=== PATIENT | female | born 1930 | race Caucasian/White ===

== ENCOUNTER 2019-09-22 15:37 | Inpatient (IN) | payer MEDICARE, BC ==
[~2019-09-22] VITALS: Ht 165.1 cm; Wt 67.2 kg
[~2019-09-22 15:37] MED LIST: DOCUSATE SODIU100 MG ORAL; OMEPRAZOLE40 M1 ORAL; PRISTIQ ER50 MG PO; SIMVASTATIN40 MG ORAL; SYNTHROID88 MCG ORAL; WARFARIN SODIUM5 MG ORAL
[2019-09-22 15:38] VITALS: BP 146/76
--- NOTE | 2019-09-22 15:38 | NUR ---
ED Nurse Note: Pt was BIBA dfrom home with the c/o ALOC. Per pt's son, pt seems to be gradually declining from her ADL. Pt has hx of DM, DVT, Anemia and thyroid complications. Placed on bed and gown; hooked to compliance monitor. Bilateral side rails up. VSS, on RA. Will continue to monitor.
--- NOTE | 2019-09-22 16:06 | Emergency Room Report ---
History of Present Illness General Chief Complaint: Altered Mental Status Present Illness HPI Patient is an 89-year-old female presents after increased altered mental status. Patient been noted to be more lethargic than usual. She had recently been on antibiotics for urinary tract infection. She reportedly had intermittent episodes of constipation in the past. She had previously been hospitalized at [facility] approximately 3 weeks ago. She had prior history of hypothyroidism and is currently on Synthroid. Patient also has on Pristiq as well as Coumadin 5 mg due to prior history of DVTs. She has an IVC filter.Patient reportedly had not been having any vomiting or diarrhea. No known fever. Allergies: Coded Allergies: CLINDAMYCIN (Verified Allergy, Unknown, 10/15/11) PENICILLINS (Verified Allergy, Unknown, 10/15/11) SULFA (SULFONAMIDE ANTIBIOTICS) (Verified Allergy, Unknown, 10/15/11) Patient History Past Medical History: see triage record Past Surgical History: other - VC filter Reviewed Nursing Documentation: PMH: Agreed; PSxH: Agreed Review of Systems All Other Systems: limited - by poor historian Physical Exam Vital Signs Date Time Temp Pulse Resp B/P (MAP) Pulse Ox O2 Delivery O2 Flow Rate FiO2 09/22/19 15:29 99.7 98 18 148/76 (100) 98 Room Air General Appearance: alert, Chronically Ill Eyes: bilateral eye PERRL ENT: hearing grossly normal Neck: limited range of motion Respiratory: chest non-tender, lungs clear, normal breath sounds Cardiovascular #1: normal inspection, no edema Gastrointestinal: normal inspection, soft Neurologic: alert, motor strength/tone normal, insurance examiner III-XII nml as tested, motor weakness Skin: no rash Medical Decision Making Diagnostic Impression: Primary Impression: Altered mental status Additional Impressions: Severe sepsis Dementia Warfarin anticoagulation ER Course Patient present for increased generalized weakness and altered mental status. Differential diagnosis include was not limited to hypothyroidism, dehydration, C. difficile colitis, urinary tract infection among others. Because of complexity of patient's case laboratory tests and imaging studies were ordered.Chest x-ray 1 view read by radiology showed large retrocardiac hiatal hernia without evident infiltrate effusions or congestion. Patient given IV fluids as well as IV antibiotics.Patient was given IV Levaquin as well as vancomycin. Patient's urinalysis did show some evidence of urinary infection.Head CT read by radiology showed atrophic changes and chronic ischemic white matter changes. Patient was given IV fluids. Dr. Kj Chang was contacted for inpatient management due to primary care physician Labs Test 09/22/19 15:55 White Blood Count 14.6 K/UL (4.8-10.8) Red Blood Count 3.15 M/UL (4.20-5.40) Hemoglobin 10.7 G/DL (12.0-16.0) Hematocrit 30.6 % (37.0-47.0) Mean Corpuscular Volume 97 FL (80-99) Mean Corpuscular Hemoglobin 34.0 PG (27.0-31.0) Mean Corpuscular Hemoglobin Concent 35.0 G/DL (32.0-36.0) Red Cell Distribution Width 11.4 % (11.6-14.8) Platelet Count 330 K/UL (150-450) Mean Platelet Volume 5.5 FL (6.5-10.1) Neutrophils (%) (Auto) 82.4 % (45.0-75.0) Lymphocytes (%) (Auto) 10.3 % (20.0-45.0) Monocytes (%) (Auto) 6.7 % (1.0-10.0) Eosinophils (%) (Auto) 0.0 % (0.0-3.0) Basophils (%) (Auto) 0.6 % (0.0-2.0) Prothrombin Time 22.7 SEC (9.30-11.50) Prothromb Time International Ratio 2.2 (0.9-1.1) Sodium Level 137 MMOL/L (136-145) Potassium Level 4.7 MMOL/L (3.5-5.1) Chloride Level 100 MMOL/L (98-107) Carbon Dioxide Level 27 MMOL/L (21-32) Anion Gap 11 mmol/L (5-15) Blood Urea Nitrogen 31 mg/dL (7-18) Creatinine 1.1 MG/DL (0.55-1.30) Estimat Glomerular Filtration Rate mL/min (>60) Glucose Level 175 MG/DL (74-106) Lactic Acid Level 2.40 mmol/L (0.4-2.0) Calcium Level 8.1 MG/DL (8.5-10.1) Phosphorus Level 2.6 MG/DL (2.5-4.9) Magnesium Level 2.0 MG/DL (1.8-2.4) Total Bilirubin 0.3 MG/DL (0.2-1.0) Aspartate Amino Transf (AST/SGOT) 48 U/L (15-37) Alanine Aminotransferase (ALT/SGPT) 40 U/L (12-78) Alkaline Phosphatase 85 U/L (46-116) Total Creatine Kinase 40 U/L (26-308) Creatine Kinase MB 0.6 NG/ML (0.0-3.6) Creatine Kinase MB Relative Index 1.5 Troponin I 0.000 ng/mL (0.000-0.056) Total Protein 6.6 G/DL (6.4-8.2) Albumin 2.1 G/DL (3.4-5.0) Globulin 4.5 g/dL Albumin/Globulin Ratio 0.5 (1.0-2.7) Thyroid Stimulating Hormone (TSH) 10.514 uiU/mL (0.358-3.740) Free Thyroxine 1.29 NG/DL (0.76-1.46) Lab Results Impression Labs Test 09/22/19 15:55 09/22/19 17:05 09/22/19 17:30 White Blood Count 14.6 K/UL (4.8-10.8) Red Blood Count 3.15 M/UL (4.20-5.40) Hemoglobin 10.7 G/DL (12.0-16.0) Hematocrit 30.6 % (37.0-47.0) Mean Corpuscular Volume 97 FL (80-99) Mean Corpuscular Hemoglobin 34.0 PG (27.0-31.0) Mean Corpuscular Hemoglobin Concent 35.0 G/DL (32.0-36.0) Red Cell Distribution Width 11.4 % (11.6-14.8) Platelet Count 330 K/UL (150-450) Mean Platelet Volume 5.5 FL (6.5-10.1) Neutrophils (%) (Auto) 82.4 % (45.0-75.0) Lymphocytes (%) (Auto) 10.3 % (20.0-45.0) Monocytes (%) (Auto) 6.7 % (1.0-10.0) Eosinophils (%) (Auto) 0.0 % (0.0-3.0) Basophils (%) (Auto) 0.6 % (0.0-2.0) Prothrombin Time 22.7 SEC (9.30-11.50) Prothromb Time International Ratio 2.2 (0.9-1.1) Sodium Level 137 MMOL/L (136-145) Potassium Level 4.7 MMOL/L (3.5-5.1) Chloride Level 100 MMOL/L (98-107) Carbon Dioxide Level 27 MMOL/L (21-32) Anion Gap 11 mmol/L (5-15) Blood Urea Nitrogen 31 mg/dL (7-18) Creatinine 1.1 MG/DL (0.55-1.30) Estimat Glomerular Filtration Rate mL/min (>60) Glucose Level 175 MG/DL (74-106) Calcium Level 8.1 MG/DL (8.5-10.1) Phosphorus Level 2.6 MG/DL (2.5-4.9) Magnesium Level 2.0 MG/DL (1.8-2.4) Total Bilirubin 0.3 MG/DL (0.2-1.0) Aspartate Amino Transf (AST/SGOT) 48 U/L (15-37) Alanine Aminotransferase (ALT/SGPT) 40 U/L (12-78) Alkaline Phosphatase 85 U/L (46-116) Total Creatine Kinase 40 U/L (26-308) Creatine Kinase MB 0.6 NG/ML (0.0-3.6) Creatine Kinase MB Relative Index 1.5 Troponin I 0.000 ng/mL (0.000-0.056) Total Protein 6.6 G/DL (6.4-8.2) Albumin 2.1 G/DL (3.4-5.0) Globulin 4.5 g/dL Albumin/Globulin Ratio 0.5 (1.0-2.7) Thyroid Stimulating Hormone (TSH) 10.514 uiU/mL (0.358-3.740) Free Thyroxine 1.29 NG/DL (0.76-1.46) Urine Color Yellow Urine Appearance Slightly cloudy Urine pH 5 (4.5-8.0) Urine Specific [place] 1.005 (1.005-1.035) Urine Protein 2+ (NEGATIVE) Urine Glucose (UA) Negative (NEGATIVE) Urine Ketones Negative (NEGATIVE) Urine Blood 2+ (NEGATIVE) Urine Nitrite Positive (NEGATIVE) Urine Bilirubin Negative (NEGATIVE) Urine Urobilinogen 1 MG/DL (0.0-1.0) Urine Leukocyte Esterase 2+ (NEGATIVE) Urine RBC 5-10 /HPF (0 - 2) Urine WBC 60-80 /HPF (0 - 2) Urine Squamous Epithelial Cells Moderate /LPF (NONE/OCC) Urine Bacteria Many /HPF (NONE) Lactic Acid Level 2.30 mmol/L (0.66-2.22) EKG Diagnostic Results Rate: tachycardiac Rhythm: NSR ST Segments: no acute changes Last Vital Signs Date Time Temp Pulse Resp B/P (MAP) Pulse Ox O2 Delivery O2 Flow Rate FiO2 09/22/19 15:29 99.7 98 18 148/76 (100) 98 Room Air Status: unchanged Reevaluation Impression SEPSIS RE-EVALUATION: Pollo Peters MD, Performed the Sepsis Re-evaluation at 22:33. Patient was noted to have improvement in lactate as well as improved heart rate. Continues to perfuse well. Disposition: ADMITTED INPATIENT Condition: Stable Pollo Sanchez MD Sep 22, 2019 16:06
--- NOTE | 2019-09-22 16:36 | Diagnostic Imaging Report ---
Indication: Shortness of breath Technique: One view of the chest Comparison: 02/02/2011 Findings: There is a large retrocardiac hiatal hernia. No definite acute infiltrates, effusions, or congestion. Aorta is tortuous and calcified. There is an old healed fracture deformity of the left shoulder Impression: No definite acute process. Findings as noted
--- NOTE | 2019-09-22 16:38 | Diagnostic Imaging Report ---
Indications: Altered mental status Technique: Spiral acquisitions obtained through the brain. Angled axial and coronal 5 x 5 mm slices were reconstructed. Total dose length product 1407 mGycm. CTDI vol(s) 62 mGy. Dose reduction achieved using automated exposure control Comparison: None. Findings: There is age-related enlargement of the ventricles and extra axial CSF spaces. Visualized orbits and sinuses are unremarkable. The calvarium is intact. The mastoids are clear. Impression: Chronic and age-related changes. Negative for acute intracranial bleed or mass effect The CT scanner at [facility] is accredited by the [employer] and the scans are performed using protocols designed to limit radiation exposure to as low as reasonably achievable to attain images of sufficient resolution adequate for diagnostic evaluation.
[2019-09-22 16:41] LABS: BASOPHILS % (AUTO) 0.6 % (0.0-2.0); HEMATOCRIT 30.6 % (37.0-47.0); HEMOGLOBIN 10.7 G/DL (12.0-16.0); LYMPHOCYTES % (AUTO) 10.3 % (20.0-45.0); MEAN CORPUSCULAR VOLUME 97 FL (80-99); MONOCYTES % (AUTO) 6.7 % (1.0-10.0); NEUTROPHILS % (AUTO) 82.4 % (45.0-75.0); PLATELET COUNT 330 K/UL (150-450); RED BLOOD COUNT 3.15 M/UL (4.20-5.40); RED CELL DISTRIBUTION WIDTH 11.4 % (11.6-14.8); WHITE BLOOD COUNT 14.6 K/UL (4.8-10.8)
[2019-09-22 16:54] LABS: INR 2.2 (0.9-1.1)
[2019-09-22 17:00] LABS: ANION GAP 11 mmol/L (5-15); BLOOD UREA NITROGEN 31 mg/dL (7-18); CALCIUM 8.1 MG/DL (8.5-10.1); CARBON DIOXIDE 27 MMOL/L (21-32); CHLORIDE 100 MMOL/L (98-107); CREATININE 1.1 MG/DL (0.55-1.30); POTASSIUM 4.7 MMOL/L (3.5-5.1); SODIUM 137 MMOL/L (136-145)
[2019-09-22 17:09] LABS: ALANINE AMINOTRANSFERASE 40 U/L (12-78); ALBUMIN 2.1 G/DL (3.4-5.0); ALBUMIN/GLOBULIN RATIO 0.5 (1.0-2.7); ALKALINE PHOSPHATASE 85 U/L (46-116); ASPARTATE AMINO TRANSFERASE 48 U/L (15-37); BILIRUBIN,TOTAL 0.3 MG/DL (0.2-1.0); CKMB 0.6 NG/ML (0.0-3.6); CREATINE KINASE 40 U/L (26-308); PHOSPHORUS 2.6 MG/DL (2.5-4.9)
[2019-09-22] MEDS ORDERED: Vancomycin 1.5 GM in NS 275 ML IVPB ONE (17:15)
[2019-09-22 17:27] LABS: APPEARANCE,URINE SLIGHTLY CLOUDY; BILIRUBIN, URINE NEGATIVE (NEGATIVE); GLUCOSE, URINE (UA) NEGATIVE (NEGATIVE); KETONES,URINE NEGATIVE (NEGATIVE); LEUKOCYTE ESTERASE ,URINE 2+ (NEGATIVE); NITRITE,URINE POSITIVE (NEGATIVE); PH,URINE 5 (4.5-8.0); PROTEIN,URINE 2+ (NEGATIVE); UROBILINOGEN,URINE 1 MG/DL (0.0-1.0)
[2019-09-22 17:28] LABS: COLOR,URINE YELLOW
[2019-09-22 18:43] VITALS: BP 141/77
--- NOTE | 2019-09-22 19:09 | NUR ---
HAND-OFF: Report given to ELIA Ortega .
[2019-09-22 19:10] VITALS: BP 123/93
--- NOTE | 2019-09-22 19:10 | NUR ---
ED Nurse Note: Received report from Lorna RODRIGEZ. Pt alert and oriented. Not in any distress. Will cont to monitor.
[2019-09-22] MEDS ORDERED: Miralax 17gm pkt ORAL PRN (20:45)
[2019-09-22] MEDS ORDERED: Cefepime 1gm vial IM SCH (21:00)
--- NOTE | 2019-09-22 21:20 | NUR ---
ED Nurse Note: US at bedside.
--- NOTE | 2019-09-22 22:22 | NUR ---
ED Nurse Note: Report given to Raúl RODRIGEZ from SDU.
[2019-09-22 22:25] VITALS: BP 132/80
--- NOTE | 2019-09-22 22:25 | NUR ---
TRANSFER TO FLOOR: Patient transferred to SDU unit. Report given to Raúl RODRIGEZ. Pt alert and orientedx 3, verbally responsive. Not in any distress. No SOB. sinus rhythm. IV line on right wrist 20g patent and intact. Med recon done. All belongings given to the patient.
--- NOTE | 2019-09-22 22:45 | NUR ---
NURSE NOTES: Received patient from ELIA Ortega. Patient is aaox2, vss, with no acute distress. Patient is cooperative and well groomed. Patient is on cardiac exercise specialist, IV site on right wrist 20g, and with blanchable redness on her sacral. Patient skin is red and irritated from cardiac exercise specialist leads. Patient is NPO with D5 ns ordered. Patient has a purewick, dry and clean. Patient lungs are clear on all lobes. Bed at its lowest position, call light in reach and x3 bed rails are up. Will continue to monitor.
[2019-09-22] MEDS: D5NS 1,000 ML IV SCH (23:40)
[2019-09-23 00:02] VITALS: BP 130/77
[2019-09-23 04:00] VITALS: BP 135/72
[2019-09-23 05:00] LABS: BASOPHILS % (AUTO) 0.5 % (0.0-2.0); HEMATOCRIT 28.3 % (37.0-47.0); HEMOGLOBIN 9.9 G/DL (12.0-16.0); LYMPHOCYTES % (AUTO) 9.5 % (20.0-45.0); MEAN CORPUSCULAR VOLUME 96 FL (80-99); MONOCYTES % (AUTO) 8.6 % (1.0-10.0); NEUTROPHILS % (AUTO) 81.3 % (45.0-75.0); PLATELET COUNT 280 K/UL (150-450); RED BLOOD COUNT 2.95 M/UL (4.20-5.40); RED CELL DISTRIBUTION WIDTH 11.2 % (11.6-14.8); WHITE BLOOD COUNT 10.7 K/UL (4.8-10.8)
[2019-09-23 05:17] LABS: ANION GAP 8 mmol/L (5-15); BLOOD UREA NITROGEN 24 mg/dL (7-18); CALCIUM 7.6 MG/DL (8.5-10.1); CARBON DIOXIDE 24 MMOL/L (21-32); CHLORIDE 104 MMOL/L (98-107); INR 1.8 (0.9-1.1); POTASSIUM 3.9 MMOL/L (3.5-5.1); SODIUM 136 MMOL/L (136-145)
[2019-09-23 05:24] LABS: ALANINE AMINOTRANSFERASE 30 U/L (12-78); ALBUMIN 1.6 G/DL (3.4-5.0); ALBUMIN/GLOBULIN RATIO 0.4 (1.0-2.7); ALKALINE PHOSPHATASE 68 U/L (46-116); ASPARTATE AMINO TRANSFERASE 32 U/L (15-37); BILIRUBIN,TOTAL 0.4 MG/DL (0.2-1.0)
--- NOTE | 2019-09-23 07:05 | NUR ---
NURSE NOTES: Report received from Raúl Agudelo RN.Pt resting quietly in bed awake alert noted no resp distress denies any c/o pain or discomfort, S-R on the monitor kept NPO with purewick in placed,skin warm and dry with IVF D5NS at 60ml/hr to RW site intact,SR up x2 call light within reach at bedside,bed lock in lowest position ,will continue with plans of care.
[2019-09-23 08:00] VITALS: BP 136/75
[2019-09-23] MEDS ORDERED: Cefepime 1gm vial IVPB SCH (09:00)
[2019-09-23] MEDS: Docusate 100mg cap ORAL SCH ×3 (09:00→18:57)
[2019-09-23] MEDS ORDERED: Docusate 100mg cap ORAL SCH (09:00)
--- NOTE | 2019-09-23 09:06 | History & Physical ---
History and Physical History & Physicial [id number] Kj Chang MD Sep 23, 2019 09:06
--- NOTE | 2019-09-23 10:30 | NUR ---
NURSE NOTES: Dr Chang at bedside,ordered to feed pt with regular diet.
[2019-09-23 12:00] VITALS: BP 135/72
--- NOTE | 2019-09-23 12:00 | NUR ---
NURSE NOTES: Family member at bedside,requested pt be on regular Kosher diet.Pt did not eat lunch,drinks only water and juices.
[2019-09-23] MEDS: D5NS 1,000 ML IV SCH (14:10)
--- NOTE | 2019-09-23 14:45 | NUR ---
NURSE NOTES: Dr Chang called the unit informing that he's aware of pt's BC results and pt is already on antibiotic.
--- NOTE | 2019-09-23 15:30 | History and Physical Report ---
DATE OF ADMISSION: 09/22/2019 REASON OF ADMISSION: Altered mental status. HISTORY OF PRESENT ILLNESS: This is a very pleasant 89-year-old white female who is acquainted to me from previous admissions, has a history of hypercoagulable state for which she is on Coumadin, was brought to the emergency room of [facility] after 2 to 3 days being somewhat lethargic and altered, was found to have a pyuria with white count of about 14,000, was given some Levaquin in the emergency room, and was decided to be admitted for further evaluation. 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 PAST SURGICAL HISTORY: Status post total knee replacement, status post cataract surgery, status post carpal tunnel repair, status post , status post IVC filter placement. MEDICATIONS: Includes Pristiq 50 mg p.o. at bedtime, Colace 250 mg p.o. daily, Trusopt ophthalmic drops in both eyes b.i.d., fish oil 1 capsule p.o. daily, Xalatan eyedrops 0.005% 1 drop in both eyes daily, Synthroid 0.88 mg p.o. daily, metformin 500 mg p.o. b.i.d., Remeron 15 mg p.o. at bedtime, Prilosec 40 mg p.o. daily, simvastatin 40 mg p.o. daily, warfarin 5 mg p.o. daily except on Thursday and Thursday and Fridays, which is 6 mg. ALLERGIES: Cephalexin, clindamycin, penicillin, and sulfa drugs. REVIEW OF SYSTEMS: CONSTITUTIONAL: She received some Levaquin in the emergency room. By the time I am seeing her today on 09/23/2019, she is feeling better. Denies any chills or fever. CARDIOVASCULAR: Denies any chest pain, dyspnea with exertion, or orthopnea. SKIN: Denies any rash or photosensitivity. MUSCULOSKELETAL: Denies any arthralgia or myalgia. URINARY: Denies any urinary foaminess, hematuria, or dysuria. NEUROLOGICAL: Denies any paresthesia, muscle weakness, diplopia, or seizure. She has had some mental status changes. GASTROINTESTINAL: Denies any nausea, vomiting, diarrhea, melena, or hematochezia. RESPIRATORY: Denies any cough, purulent sputum production, hemoptysis, or wheezing. ENDOCRINE: History of thyroid disease for which she is on Synthroid supplementation. HEMATOLOGICAL: Denies any easy bruising or easy bleeding. She has a hypercoagulable state. The remainder of the review of systems has been essentially negative. PHYSICAL EXAMINATION: GENERAL: She does not seem to be in much acute distress. VITAL SIGNS: Blood pressure 132/80, pulse of 96, respirations 19, temperature 97.9. HEENT: Head is atraumatic. Eyes, pupils reactive to light. No evidence of papilledema. Ears, canals are clear. Tympanic membranes are intact. Nose, nares are patent without any nasal discharge. Throat without inflammation or exudates. NECK: Supple. Jugular venous distention is within normal limits. No cervical adenopathy. No thyromegaly. HEART: Regular rhythm. No gallop. LUNGS: Clear to auscultation. ABDOMEN: Soft. Bowel sounds positive. No hepatosplenomegaly. EXTREMITIES: Lower extremity shows no cyanosis or clubbing. No pedal edema. NEUROLOGIC: Cranial nerves are intact. There is no focal neurological deficit present. LABORATORY DATA: Shows sodium 136, potassium 3.9, chloride 104, carbon dioxide 24, BUN is 24, creatinine is 1.0, glucose is 125. Calcium 7.6. Albumin is 1.6. LFTs within normal range. WBC was 14.6 initially, now is 10.7, hemoglobin 9.9, hematocrit 28.3, and platelets of 280. Urinalysis showed evidence of 60 to 80 wbc's per high-power field, many bacteria. Culture is pending. INR is about 2.2. IMPRESSION: 1. Altered mental status due to underlying sepsis. 2. She has evidence of urinary tract infection with sepsis. 3. Mildly volume depleted. 4. Some degree of malnutrition. PLAN: Urine culture is still pending at this point. She received Levaquin in the emergency room. We will continue with the Levaquin as inpatient awaiting the cultures. IV fluid with normal saline at 60 mL/hour is in order. A renal ultrasound is going to be obtained. Kj Chang M.D. DR: DONATO JOB#: [id number] CC:
--- NOTE | 2019-09-23 15:44 | NUR ---
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 98.6 HR 98 RR 18 B/P 148/76 WBC 14.6 BUN 31 LACTID ACID 2.40 UA+NITRITE,PROTEIN,LEUKOCYTE ESTERASE,RBC,WBC,SQUAMOUS EPTH CXR= NEGATIVE CT HEAD= NEGATIVE IS: IV BOLUS NS X 2 LITERS LEVAQUIN IV VANCO IV ADMITTED TO STEP DOWN @ 2225 STEP DOWN STATUS DCP RETURN HOME
[2019-09-23 16:00] VITALS: BP 149/63
--- NOTE | 2019-09-23 16:45 | Diagnostic Imaging Report ---
Indication: Abnormal renal function tests Technique: Grayscale and duplex images of the kidneys, retroperitoneum, and bladder were obtained. Comparison: No comparison sonograms. Reference made to 10/14/2011 CT scan Findings: Right kidney measures 10.4 cm in length. Left kidney measures 9 cm in length. Both kidneys demonstrate normal echogenicity, but there is some thinning of the renal cortices bilaterally. No hydronephrosis. Cysts are seen in both kidneys. Echogenic foci are seen in the renal parenchyma and renal sinuses bilaterally. Normal inferior vena cava. Bladder is normal. Adjacent to but separate from the lower pole of the right kidney, there is a mixed echogenicity structure which measures 9.3 x 8.2 x 3.7 cm, demonstrates marked hypervascularity. No corresponding abnormality is seen on prior CT scan. Impression: Negative for hydronephrosis 9.3 x 8.2 x 3.7 hypervascular mixed echogenicity structure adjacent to but separate from the lower pole the right kidney. Further evaluation with CT scan is recommended, preferably with IV contrast administration with patient's GFR is greater than 30. Patient's nurse notified at the time of interpretation Incidental finding bilateral renal cysts Bilateral renal sinus and parenchymal echogenic foci, likely artifact but could represent nephrolithiasis or nephrocalcinosis.
--- NOTE | 2019-09-23 16:45 | NUR ---
NURSE NOTES: Dr Pichardo called to inform Dr Chang re results of US Abdomen,pt with mass at the Rt upper abdomen.will try to call Dr Chang.
[2019-09-23] MEDS ORDERED: Warfarin Sodium 5mg ORAL SCH (17:00)
--- NOTE | 2019-09-23 19:00 | Consultation ---
History of Present Illness General Date patient seen: Sep 23, 2019 Time patient seen: 19:00 Reason for Hospitalization: Altered Mental Status Present Illness HPI This is an 89-year-old female with PMH of hypercoagulable state and LLE DVT on Coumadin, was brought in to [facility] emergency room for altered mental status for 2 to 3 days . she has been lethargic and altered, with poor response and lethargy, so she was sent to the hospital for further evaluation and management . in ED She was found to have leukocytosis and UTI which is concerning for sepsis , CXR didn't show any new infiltrates or effusion , so she was given levaquin and vancomycin in ED and was admitted to the SDU for further evaluation and management . Her urine culture is growing gram negative rods and her blood culture too suggestive of sepsis due to UTI , so she was continued on levaquin and infectious disease consult was requested for antibiotics treatment and further care . as of note patient is poor historian and couldn't provide any history, most details were obtained from medical records Allergies: Coded Allergies: CLINDAMYCIN (Verified Allergy, Unknown, 10/15/11) PENICILLINS (Verified Allergy, Unknown, 10/15/11) SULFA (SULFONAMIDE ANTIBIOTICS) (Verified Allergy, Unknown, 10/15/11) Medication History Scheduled Docusate Sodium* (Docusate Sodium*), 1,000 MG ORAL THREE TIMES A DAY, (Reported) Levothyroxine Sodium* (Synthroid*), 88 MCG ORAL DAILY, (Reported) Omeprazole (Omeprazole), 40 MG ORAL DAILY, (Reported) Simvastatin (Zocor), 40 MG ORAL BEDTIME, (Reported) Warfarin Sod* (Warfarin Sod*), 5 MG ORAL DAILY, (Reported) Miscellaneous Medications Desvenlafaxine Succinate (Pristiq Er), 50 MG PO, (Reported) Patient History Limited by: age, medical condition History Provided By: Medical Record, EMS Healthcare decision maker Resuscitation status Advanced Directive on File Past Medical/Surgical History Past Medical/Surgical History: (1) Dementia (2) Warfarin anticoagulation (3) Hypothyroid Review of Systems Review of Symptoms General ROS: no weight loss , but fever Psychological ROS: depressed mood and memory loss Ophthalmic ROS: no visual changes or eye irritation ENT ROS: no nasal congestion, hearing loss, dizziness Allergy and Immunology ROS: no allergic symptoms or urticaria Hematological and Lymphatic ROS: no swollen glands, unusual bleeding or bruising Endocrine ROS: no polyuria, polydipsia, weight changes, temperature intolerance Respiratory ROS: no cough, shortness of breath, or wheezing Cardiovascular ROS: no chest pain or dyspnea on exertion Gastrointestinal ROS: denies abdominal pain, bright red blood in stool. Musculoskeletal ROS: no myalgias or arthralgias Neurological ROS: no TIA or stroke symptoms Dermatological ROS: no new or changing skin lesions, rashes or pruritis Physical Exam Physical Exam General appearance: altered , cooperative, no distress, appears stated age Head: Normocephalic, without obvious abnormality, atraumatic Eyes: conjunctivae/corneas clear. PERRL, EOM's intact. Fundi benign Throat: Lips, mucosa, and tongue normal. Teeth and gums normal Neck: supple, symmetrical, trachea midline, no adenopathy, thyroid: not enlarged, symmetric, no tenderness/mass/nodules, no carotid bruit and no JVD Lungs: clear to auscultation bilaterally Heart: regular rate and rhythm, S1, S2 normal, no murmur, click, rub or gallop Abdomen: soft, non-tender. Bowel sounds normal. No masses, no organomegaly Extremities: extremities normal, atraumatic, no cyanosis or edema Pulses: 2+ and symmetric Skin: Skin color, texture, turgor normal. No rashes or lesions Neurologic: Grossly normal Last 24 Hour Vital Signs Date Time Temp Pulse Resp B/P (MAP) Pulse Ox O2 Delivery O2 Flow Rate FiO2 09/23/19 16:00 90 09/23/19 16:00 98.1 101 22 149/63 (91) 94 09/23/19 12:00 98.0 90 22 135/72 (93) 95 09/23/19 12:00 89 09/23/19 09:00 Room Air 09/23/19 08:00 98.6 87 22 136/75 (95) 94 09/23/19 08:00 86 09/23/19 04:00 89 09/23/19 04:00 98.9 90 24 135/72 (93) 95 09/23/19 00:02 98.1 91 24 130/77 (94) 96 09/23/19 00:00 84 09/22/19 23:57 Room Air 09/22/19 22:25 97.9 96 19 132/80 99 Room Air 09/22/19 22:25 97.9 96 19 132/80 99 Room Air 09/22/19 19:10 98.5 92 25 123/93 96 Room Air Intake and Output 09/22/19 09/23/19 19:00 07:00 Intake Total 1275 ml 50 ml Output Total 440 ml Balance 1275 ml -390 ml Intake IV Total 1275 ml 50 ml Output Urine Total 440 ml Laboratory Tests Test 09/23/19 03:05 White Blood Count 10.7 K/UL (4.8-10.8) Red Blood Count 2.95 M/UL (4.20-5.40) L Hemoglobin 9.9 G/DL (12.0-16.0) L Hematocrit 28.3 % (37.0-47.0) L Mean Corpuscular Volume 96 FL (80-99) Mean Corpuscular Hemoglobin 33.7 PG (27.0-31.0) H Mean Corpuscular Hemoglobin Concent 35.0 G/DL (32.0-36.0) Red Cell Distribution Width 11.2 % (11.6-14.8) L Platelet Count 280 K/UL (150-450) Mean Platelet Volume 5.6 FL (6.5-10.1) L Neutrophils (%) (Auto) 81.3 % (45.0-75.0) H Lymphocytes (%) (Auto) 9.5 % (20.0-45.0) L Monocytes (%) (Auto) 8.6 % (1.0-10.0) Eosinophils (%) (Auto) 0.0 % (0.0-3.0) Basophils (%) (Auto) 0.5 % (0.0-2.0) Prothrombin Time 18.7 SEC (9.30-11.50) H Prothromb Time International Ratio 1.8 (0.9-1.1) H Sodium Level 136 MMOL/L (136-145) Potassium Level 3.9 MMOL/L (3.5-5.1) Chloride Level 104 MMOL/L (98-107) Carbon Dioxide Level 24 MMOL/L (21-32) Anion Gap 8 mmol/L (5-15) Blood Urea Nitrogen 24 mg/dL (7-18) H Creatinine 1.0 MG/DL (0.55-1.30) Estimat Glomerular Filtration Rate mL/min (>60) Glucose Level 125 MG/DL (74-106) H Calcium Level 7.6 MG/DL (8.5-10.1) L Total Bilirubin 0.4 MG/DL (0.2-1.0) Aspartate Amino Transf (AST/SGOT) 32 U/L (15-37) Alanine Aminotransferase (ALT/SGPT) 30 U/L (12-78) Alkaline Phosphatase 68 U/L (46-116) Total Protein 6.0 G/DL (6.4-8.2) L Albumin 1.6 G/DL (3.4-5.0) L Globulin 4.4 g/dL Albumin/Globulin Ratio 0.4 (1.0-2.7) L blood culture x1 is growing gram negative rods urine culture is growing gram negative rods > 100 000 colony Height (Feet): 5 Height (Inches): 3.00 Weight (Pounds): 160 Medications Current Medications Medications (Trade) Dose Ordered Sig/Patricia Route PRN Reason Start Time Stop Time Status Last Admin Dose Admin Dextrose (Dextrose 50%) 25 ml Q30M PRN IV Hypoglycemia 09/22/19 20:45 10/22/19 20:44 Dextrose (Dextrose 50%) 50 ml Q30M PRN IV Hypoglycemia 09/22/19 20:45 10/22/19 20:44 Dextrose/Sodium Chloride 1,000 ml @ 60 mls/hr [id number] IV 09/22/19 21:37 10/22/19 21:36 09/23/19 14:10 Docusate Sodium (Colace) 100 mg THREE TIMES A DAY ORAL 09/23/19 09:00 10/23/19 08:59 09/23/19 18:57 Levofloxacin 50 ml @ 50 mls/hr Q24H IVPB 09/23/19 21:00 09/30/19 20:59 Levothyroxine Sodium (Synthroid) 88 mcg DAILY@0630 ORAL 09/23/19 06:30 10/23/19 06:29 09/23/19 06:17 Polyethylene Glycol (Miralax) 17 gm HSPRN PRN ORAL Constipation 09/22/19 20:45 10/22/19 20:44 Warfarin Sodium (Coumadin per pharmacy) 1 ea DAILY PRN MISC Per rx protocol 09/22/19 20:45 10/22/19 20:44 Assessment/Plan Status: stable, fever, hypovolemia Assessment/Plan: 1. sepsis with gram negative rods 2. acute pyelonephritis with gram negative rods 3. right lower kidney mass with vascularity 4. dehydration and hypotension 5. acute encephalopathy 6. hypercoagulable state RECOMMENDATIONS: 1. switch levaquin to meropenem pending final blood and urine culture 2. hydration and blood pressure support to keep MAP > 65 3. urology eval for right kidney mass 4. urine cytology [facility] Hospital declaration INPATIENT level of care is warranted for this patient because patient is a 89 year old with who presents with suspicion of . I have a high level of concern because . Patient is at high risk for . Plan of care/treatment include . Patient care is expected to be greater than 2 midnights. OBSERVATION level of care is warranted for this patient. Patient is a 89 year old with who presents with . Patient will be admitted for 1 midnight, but if additional night(s) is/are necessary, patient will be converted to inpatient status for the entire hospitalization Disposition: Once the patient is stable to leave the hospital, I anticipate the patient will likely be discharged to the following environment: Estimated discharge date: I spent 70 minutes on this patient's case, and minutes was dedicated to counseling and/or care coordination. MIPS (Merit-based Incentive Payment System) Applicable CPT: 67788, 92621 CHECK ALL THAT ARE MET: Measure #5 (CHF): All ages. Prescribe JEREMI/ARB upon discharge for patients with left ventricular systolic dysfunction. If not, the reason is clearly documented in the medical chart. Measure #8 (CHF): All ages. Prescribe a beta félix upon discharge for patients with left ventricular systolic dysfunction. If not, the reason is clearly documented in the medical chart. Measure #47 Advance care plan or surrogate decision maker documented in the medical record. Measure #130 The provider has documented, updated, or reviewed the patients current medication list and has documented it in the patients note. Measure #374 (All): Send report to referring provider. Measure #407(Sepsis due to MSSA bacteremia): Age 18+ Patient treated with a beta-lactam antibiotic (Nafcillin, Oxacillin or Cefazolin) as definitive therapy. MEDICAL COMPLEXITY High complexity medical decision making (need 2/3 categories) Problem - need 4 points Acute/new problem with new plan for workup (4 points, 1 max) Acute/new problem without additional workup (3 points, 1 max) Unstable chronic problem actively being managed (2 point each, 2 max) Stable chronic problem actively being managed (1 point each, 2 max) Self-limited/transient process (constipation, muscle ache, etc) (1 point each , 2 max) Data - need 4 points Reviewed labs/imaging studies (1 points, 2 max) Independent review of imaging (EKG, xrays, etc) (2 points, 2 max) Discussed case with consult/other MD/RN (2 points, 2 max) High Risk - qualify if have one of the following: Severe exacerbation of acute problem, acute mental status change, IV narcotics , monitoring drug levels (vancomycin, INR, tacrolimus etc) Keily Flores M.D. Sep 23, 2019 19:00
--- NOTE | 2019-09-23 19:00 | NUR ---
NURSE NOTES: called Dr Arias informed about Dr Pichardo's trying to get hold of him to report re results of Abdominal US.Dr Chang ordered to insert a Duboff NGT if pt is not eating.
--- NOTE | 2019-09-23 19:35 | NUR ---
HAND-OFF: Report given to Linda Pope RN..
--- NOTE | 2019-09-23 19:40 | NUR ---
NURSE NOTES: Received report from ELIA Evans. Pt is resting on the bed and awake and confused and forgetful. On RA and no sign of respiratory distress noted. IV site intact and no sign of infiltration noted. On running with D5wNS @ 60cc/hr. Denied pain at this time. Previous nursed said Dr. funez ordered to insert dubbhoff NGT. Paged Dr. Funez for verify NGT insertion order and GI consult and awaiting call back. Placed fall precaution. Will continue to care plan.
[2019-09-23] MEDS: Meropenem 1 GM in NS 55 ML IVPB SCH (20:27)
[2019-09-23 21:00] VITALS: BP 139/70
[2019-09-23] MEDS ORDERED: Levofloxacin 250mg/D5W 50ml IVPB SCH (21:00)
--- NOTE | 2019-09-23 21:00 | NUR ---
NURSE NOTES: Get call back from Dr. Chang and he ordered insert regular NGT and carried out. Will continue to monitor any change of condition.
--- NOTE | 2019-09-23 21:30 | NUR ---
NURSE NOTES: Pt is resting on the bed and awake and confused. Explained Pt regarding NG tube insertion but Pt strongly refused to insert NGT with resisting care. Explained benefits and risks but she didn't understand. Will continue to monitor any change of condition.
[2019-09-24] VITALS: BP 132/84
--- NOTE | 2019-09-24 01:20 | NUR ---
HAND-OFF: Report given to ELIA Olsen. Pt is sleeping on the bed and no sign of acute distress noted. Pt still refused to insert NGT.
--- NOTE | 2019-09-24 01:27 | NUR ---
NURSE NOTES: Received patient from ELIA Mckeon. Patient is aaox2, vss, with no acute distress. Patient is in bed resting, on cardiac rehabilitation specialist with IV on right wrist 20g running d5NS at 60mL/hr. No wounds noted, room air, patient is cooperative and clean. Patient is on a regular kosher diet, but NPO will be ordered until NG-tube can be inserted. Last insertion of the NG-tune patient aggressively refused. Bed at its lowest position , call light in reach and x 3 bed rails are up. Will continue to monitor.
[2019-09-24 04:00] VITALS: BP 142/88
[2019-09-24 06:41] LABS: INR 1.5 (0.9-1.1)
[2019-09-24 06:42] LABS: BASOPHILS % (AUTO) 0.7 % (0.0-2.0); HEMATOCRIT 28.8 % (37.0-47.0); HEMOGLOBIN 10.1 G/DL (12.0-16.0); MEAN CORPUSCULAR VOLUME 97 FL (80-99); MONOCYTES % (AUTO) 10.7 % (1.0-10.0); NEUTROPHILS % (AUTO) 73.5 % (45.0-75.0); PLATELET COUNT 289 K/UL (150-450); RED BLOOD COUNT 2.97 M/UL (4.20-5.40); RED CELL DISTRIBUTION WIDTH 11.2 % (11.6-14.8); WHITE BLOOD COUNT 9.7 K/UL (4.8-10.8)
[2019-09-24 07:03] LABS: ANION GAP 8 mmol/L (5-15); BLOOD UREA NITROGEN 15 mg/dL (7-18); CALCIUM 7.9 MG/DL (8.5-10.1); CARBON DIOXIDE 26 MMOL/L (21-32); CHLORIDE 106 MMOL/L (98-107); CREATININE 0.9 MG/DL (0.55-1.30); PHOSPHORUS 3.1 MG/DL (2.5-4.9); POTASSIUM 3.6 MMOL/L (3.5-5.1); SODIUM 140 MMOL/L (136-145)
--- NOTE | 2019-09-24 07:27 | NUR ---
NURSE NOTES: Left a message with Dr. Chang's office regarding patients refusal of NG tube insertion and request for ST evaluation. No call back at this time.
[2019-09-24] MEDS: D5NS 1,000 ML IV SCH ×2 (07:34→23:44)
[2019-09-24 08:00] VITALS: BP 131/84
--- NOTE | 2019-09-24 09:45 | NUR ---
NURSE NOTES: Report received from Faviola arango RN.Pt awake,alert confused but able to follow simple command ,noted no resp distress,denies any discomfort or pain ,SR on the monitor kept NPO,purewick in placed draining yellow urine,skin warm and dry,IV site to RW intact with IVF D5NS at 60 ml/hr,SR up x2 call light within reach,transitional care liaison at bedside,bed lock in lowest position will continue with plans of care
[2019-09-24] MEDS: Meropenem 1 GM in NS 55 ML IVPB SCH ×2 (09:47→20:23)
[2019-09-24] MEDS: Docusate 100mg cap ORAL SCH ×3 (09:48→17:25)
[2019-09-24] MEDS ORDERED: Omnipaque-300 100ml vial INJ PRN (10:00)
--- NOTE | 2019-09-24 10:05 | NUR ---
NURSE NOTES: Dr Chang at bedside,assessed pt,ordered for CT scan of abdomen with IV contrast ,will call family member for consent.
--- NOTE | 2019-09-24 10:18 | General Progress Note ---
Assessment/Plan Status: stable, fever, hypovolemia Assessment/Plan: 1) Acute pyelonephritis due to E coli resistent to Levaquin 2) Renal US shows a vascular mass at the Lower pole of R kidney 3) Euvolemic Plan: Will obtain CT of abdomen and Pelvis with IV contrast IV Ertapenem per ID Needs to be fed, if not enough, she needs NGT and tube feeding Subjective Allergies: Coded Allergies: CLINDAMYCIN (Verified Allergy, Unknown, 10/15/11) PENICILLINS (Verified Allergy, Unknown, 10/15/11) SULFA (SULFONAMIDE ANTIBIOTICS) (Verified Allergy, Unknown, 10/15/11) Subjective She has refused NGT placement for tube feeding, no fever, WBC is down to 9.7 K, The renal US shows avascular mass below the R kidney, no hydronephrosis Objective Last 24 Hour Vital Signs Date Time Temp Pulse Resp B/P (MAP) Pulse Ox O2 Delivery O2 Flow Rate FiO2 09/24/19 08:00 98.1 95 18 131/84 (100) 96 09/24/19 04:00 Room Air 09/24/19 04:00 80 09/24/19 04:00 97.2 90 19 142/88 (106) 97 09/24/19 00:00 86 09/24/19 00:00 Room Air 09/24/19 00:00 98.4 99 22 132/84 (100) 97 09/23/19 21:00 98.2 105 22 139/70 (93) 96 09/23/19 20:00 Room Air 09/23/19 20:00 106 09/23/19 16:00 90 09/23/19 16:00 98.1 101 22 149/63 (91) 94 09/23/19 12:00 98.0 90 22 135/72 (93) 95 09/23/19 12:00 89 Intake and Output 09/23/19 09/24/19 19:00 07:00 Intake Total 1140 ml 655 ml Output Total 500 ml 200 ml Balance 640 ml 455 ml Intake Oral 480 ml IV Total 660 ml 655 ml Output Urine Total 500 ml 200 ml Laboratory Tests 09/24/19 05:00: White Blood Count 9.7, Red Blood Count 2.97L, Hemoglobin 10.1L, Hematocrit 28.8L , Mean Corpuscular Volume 97, Mean Corpuscular Hemoglobin 34.0H, Mean Corpuscular Hemoglobin Concent 35.1, Red Cell Distribution Width 11.2L, Platelet Count 289, Mean Platelet Volume 5.0L, Neutrophils (%) (Auto) 73.5, Lymphocytes (%) (Auto) 15.0L, Monocytes (%) (Auto) 10.7H, Eosinophils (%) (Auto ) 0.0, Basophils (%) (Auto) 0.7, Prothrombin Time 15.2H, Prothromb Time International Ratio 1.5H, Sodium Level 140, Potassium Level 3.6, Chloride Level 106, Carbon Dioxide Level 26, Anion Gap 8, Blood Urea Nitrogen 15, Creatinine 0.9, Estimat Glomerular Filtration Rate , Glucose Level 140H, Calcium Level 7.9L , Phosphorus Level 3.1, Magnesium Level 1.7L Height (Feet): 5 Height (Inches): 3.00 Weight (Pounds): 160 General Appearance: WD/WN EENT: normal ENT inspection Neck: non-tender, normal alignment, supple Cardiovascular: normal rate, regular rhythm, no JVD Respiratory/Chest: lungs clear Abdomen: normal bowel sounds, soft Neurologic: pie icer machine II-XII grossly normal, no motor/sensory deficits Skin: normal pigmentation Kj Chang MD Sep 24, 2019 10:18
--- NOTE | 2019-09-24 10:54 | NUR ---
RD ASSESSMENT & RECOMMENDATIONS SEE CARE ACTIVITY FOR COMPLETE ASSESSMENT DAILY ESTIMATED NEEDS: Needs based on Diabetes/ 60.5kg 25-30 kcals/kg 4923-7601 total kcals 1-1.3 g protein/kg 61-79 g total protein 25-30 mL/kg 9741-1411 total fluid mLs NUTRITION DIAGNOSIS: Altered nutrition related lab values R/T diabetes as evidenced by elev BGs (140, 125, 175) CURRENT DIET: NPO PO DIET RECOMMENDATIONS: W/ poor PO -> liberalized REGULAR + Glucerna TID w/ meals ADDITIONAL RECOMMENDATIONS: * Calibrated bedscale wt for accurate CBW bedscale wt 133lbs vs EMR wt 160lbs * Once diet resumes, add Glucerna TID w/ meals * Consult RD for TF rec if TF indicated (Per MD: Needs to be fed, if not enough, she needs NGT and tube feeding) * Consider gerda count x 48 hrs once diet resumes * MVI x 1 as supplement
[2019-09-24 12:00] VITALS: BP 143/79
--- NOTE | 2019-09-24 13:00 | NUR ---
NURSE NOTES: pt stable resting quietly in bed caregiver at bedside and family members,kept NPO.
[2019-09-24] MEDS ORDERED: Tubing IV Secondary IV ONE (13:23)
[2019-09-24] MEDS ORDERED: D5NS 1000ml IV ONE (13:23)
--- NOTE | 2019-09-24 15:25 | NUR ---
NURSE NOTES: Pt brought down by transporter to CT scan per bed awake alert in no distress. 1545,Pt Back to unit stable in no distress,transferred to room 245-1
[2019-09-24 16:00] VITALS: BP 151/67
[2019-09-24] MEDS ORDERED: Warfarin Sodium 5mg ORAL SCH (17:00)
--- NOTE | 2019-09-24 17:38 | Diagnostic Imaging Report ---
EXAM: CT Abdomen and Pelvis With Intravenous Contrast CLINICAL HISTORY: Mass below the right kidney identified on renal ultrasound performed for UTI with sepsis. CT requested for further characterization of this mass. TECHNIQUE: Axial computed tomography images of the abdomen and pelvis with intravenous contrast. CTDI is 20.0 mGy and DLP is 1075.4 mGy-cm. One or more of the following dose reduction techniques were used: automated exposure control, adjustment of the mA and/or kV according to patient size, use of iterative reconstruction technique. COMPARISON: 10/14/[address] FINDINGS: Lung bases: Unremarkable. No mass. No consolidation. Pleural space: Small bilateral pleural effusions ABDOMEN: Liver: Unremarkable. No mass. Gallbladder and bile ducts: Unremarkable. No calcified stones. No ductal dilation. Pancreas: Unremarkable. No mass. No ductal dilation. Spleen: Unremarkable. No splenomegaly. Adrenals: Unremarkable. No mass. Kidneys and ureters: Unremarkable. No solid mass. No hydronephrosis. Stomach and bowel: A 7.2 x 6.3 x 7.2 cm intraluminal mass in the cecum as developed and is associated with mild wall thickening of the terminal ileum. Scattered colonic diverticuli are present. Large hiatal hernia as increased in the interval configuration of the stomach is at risk for an organoaxial volvulus. No distention suspicious for bowel obstruction is evident. PELVIS: Appendix: The appendix is not well seen. Bladder: Unremarkable. No mass. Reproductive: Unremarkable as visualized. ABDOMEN and PELVIS: Intraperitoneal space: Unremarkable. No free air. No significant fluid collection. Bones/joints: The bones are demineralized and again show lumbar spinal levoscoliosis. No acute or aggressive-appearing osseous lesions are identified. Vertebroplasty at L5 is again identified. No dislocation. Soft tissues: Unremarkable. Vasculature: An IVC filter is present. Extensive atherosclerotic calcifications of an tortuous but normal caliber abdominal aorta. No abdominal aortic aneurysm. Lymph nodes: Unremarkable. No enlarged lymph nodes. IMPRESSION: Interval development of a large cecal mass likely explains the abnormal finding on recent renal ultrasound. This is of concern for a primary colonic malignancy with no findings currently suspicious for advanced extracolonic spread or distant metastatic disease. <MYCVCSECTION> Communications: 09/24/19 17:28 Call Doctor Regarding Above results, called Dr. Chang on 09/24 17:28 (-08:00)
--- NOTE | 2019-09-24 18:57 | Infectious Diseases Prog Note ---
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 , poor prognosis , with advanced age , may need palliative care (5) Hypercoagulable state Assessment & Plan: on coumadin Subjective ROS Limited/Unobtainable: Yes Allergies: Coded Allergies: CLINDAMYCIN (Verified Allergy, Unknown, 10/15/11) PENICILLINS (Verified Allergy, Unknown, 10/15/11) SULFA (SULFONAMIDE ANTIBIOTICS) (Verified Allergy, Unknown, 10/15/11) Subjective she was lying in bed comfortable, afebrile, no cough or SOB, no diarrhea Objective Vital Signs Last 24 Hour Vital Signs Date Time Temp Pulse Resp B/P (MAP) Pulse Ox O2 Delivery O2 Flow Rate FiO2 09/24/19 16:00 96.2 103 20 151/67 (95) 100 09/24/19 12:00 96.1 87 18 143/79 (100) 96 09/24/19 12:00 Room Air 09/24/19 12:00 98 09/24/19 09:45 Room Air 09/24/19 08:00 98.1 95 18 131/84 (100) 96 09/24/19 08:00 94 09/24/19 04:00 Room Air 09/24/19 04:00 80 09/24/19 04:00 97.2 90 19 142/88 (106) 97 09/24/19 00:00 86 09/24/19 00:00 Room Air 09/24/19 00:00 98.4 99 22 132/84 (100) 97 09/23/19 21:00 98.2 105 22 139/70 (93) 96 09/23/19 20:00 Room Air 09/23/19 20:00 106 Height (Feet): 5 Height (Inches): 3.00 Weight (Pounds): 160 General Appearance: cachetic HEENT: normocephalic, atraumatic, anicteric, mucous membranes moist, PERRL Respiratory/Chest: chest wall non-tender, lungs clear, normal breath sounds, no respiratory distress, no accessory muscle use Cardiovascular: normal peripheral pulses, normal rate, regular rhythm, no gallop/murmur, no JVD Abdomen: normal bowel sounds, soft, non tender, no organomegaly, non distended , no scars, hypoactive bowel sounds, distended, mass Extremities: no cyanosis, no clubbing Skin: no rash, no lesions, no ulcers Neurologic/Psychiatric: alert Lymphatic: no neck adenopathy, no groin adenopathy Musculoskeletal: normal muscle bulk, no effusion Microbiology Date/Time Source Procedure Growth Status 09/22/19 16:20 Blood Blood Culture - Preliminary Gram Negative Eddie Resulted 09/22/19 15:55 Blood Blood Culture - Preliminary NO GROWTH AFTER 24 HOURS Resulted 09/22/19 15:55 Nasal Nares - Final Complete 09/22/19 15:55 Nasal Nares - Final Complete 09/22/19 17:05 Urine,Clean Catch Urine Culture - Final Escherichia Coli Complete Laboratory Tests Test 09/24/19 05:00 White Blood Count 9.7 K/UL (4.8-10.8) Red Blood Count 2.97 M/UL (4.20-5.40) L Hemoglobin 10.1 G/DL (12.0-16.0) L Hematocrit 28.8 % (37.0-47.0) L Mean Corpuscular Volume 97 FL (80-99) Mean Corpuscular Hemoglobin 34.0 PG (27.0-31.0) H Mean Corpuscular Hemoglobin Concent 35.1 G/DL (32.0-36.0) Red Cell Distribution Width 11.2 % (11.6-14.8) L Platelet Count 289 K/UL (150-450) Mean Platelet Volume 5.0 FL (6.5-10.1) L Neutrophils (%) (Auto) 73.5 % (45.0-75.0) Lymphocytes (%) (Auto) 15.0 % (20.0-45.0) L Monocytes (%) (Auto) 10.7 % (1.0-10.0) H Eosinophils (%) (Auto) 0.0 % (0.0-3.0) Basophils (%) (Auto) 0.7 % (0.0-2.0) Prothrombin Time 15.2 SEC (9.30-11.50) H Prothromb Time International Ratio 1.5 (0.9-1.1) H Sodium Level 140 MMOL/L (136-145) Potassium Level 3.6 MMOL/L (3.5-5.1) Chloride Level 106 MMOL/L (98-107) Carbon Dioxide Level 26 MMOL/L (21-32) Anion Gap 8 mmol/L (5-15) Blood Urea Nitrogen 15 mg/dL (7-18) Creatinine 0.9 MG/DL (0.55-1.30) Estimat Glomerular Filtration Rate mL/min (>60) Glucose Level 140 MG/DL (74-106) H Calcium Level 7.9 MG/DL (8.5-10.1) L Phosphorus Level 3.1 MG/DL (2.5-4.9) Magnesium Level 1.7 MG/DL (1.8-2.4) L Current Medications Medications (Trade) Dose Ordered Sig/Patricia Route PRN Reason Start Time Stop Time Status Last Admin Dose Admin Barium Sulfate (Readi-Cat 2) 450 ml NOW PRN ORAL Radiology Procedure 09/24/19 10:00 09/26/19 09:58 Dextrose (Dextrose 50%) 25 ml Q30M PRN IV Hypoglycemia 09/22/19 20:45 10/22/19 20:44 Dextrose (Dextrose 50%) 50 ml Q30M PRN IV Hypoglycemia 09/22/19 20:45 10/22/19 20:44 Dextrose/Sodium Chloride 1,000 ml @ 60 mls/hr [id number] IV 09/22/19 21:37 10/22/19 21:36 09/24/19 07:34 Docusate Sodium (Colace) 100 mg THREE TIMES A DAY ORAL 09/23/19 09:00 10/23/19 08:59 09/24/19 17:25 Iohexol (OMNIPAQUE-300 100ml) 100 ml NOW PRN INJ Radiology Procedure 09/24/19 10:00 09/26/19 09:58 Levothyroxine Sodium (Synthroid) 88 mcg DAILY@0630 ORAL 09/23/19 06:30 10/23/19 06:29 09/24/19 06:03 Meropenem 1 gm/ Sodium Chloride 55 ml @ 110 mls/hr Q12H IVPB 09/23/19 20:00 09/28/19 19:59 09/24/19 09:47 Polyethylene Glycol (Miralax) 17 gm HSPRN PRN ORAL Constipation 09/22/19 20:45 10/22/19 20:44 Warfarin Sodium (Coumadin per pharmacy) 1 ea DAILY PRN MISC Per rx protocol 09/22/19 20:45 10/22/19 20:44 Warfarin Sodium (Coumadin) 5 mg COUMADIN ORAL 09/24/19 17:00 09/24/19 19:00 09/24/19 17:25 Keily Flores M.D. Sep 24, 2019 18:57
--- NOTE | 2019-09-24 19:05 | NUR ---
HAND-OFF: Report given to Jil Moreno,pt very confused pulled out IV,and monitor technician and gown.
--- NOTE | 2019-09-24 19:27 | NUR ---
NURSE NOTES: received pt from Tamiko RODRIGEZ., pt is resting on the bed awake and AOx2 confused. pt is on RA. pt pulled out the IV, will insert new one as soon as possible. Pt shows no SOB and no Respiratory distress at this moment. pt states no pain at the same time. bed at the lowest position, alarmed, and locked. call light within reach. will continue to monitor pt with plan of care.
[2019-09-24 20:00] VITALS: BP 129/72
--- NOTE | 2019-09-24 21:15 | NUR ---
NURSE NOTES: daughter and daughter's at the bedside, question answered within nursing ability. pt states no pain at this moment, no SOB and no Respiratory distress at this moment. call light within reach. bed at the lowest position.
--- NOTE | 2019-09-24 23:59 | NUR ---
NURSE NOTES: repositioned pt, oral care given, changed the bed and pericare given. no SOB noted, call light within reach. will continue to monitor pt with plan of care
[2019-09-25] VITALS: BP 130/77
[2019-09-25 04:00] VITALS: BP 125/65
[2019-09-25 06:08] LABS: INR 1.5 (0.9-1.1)
--- NOTE | 2019-09-25 06:33 | NUR ---
NURSE NOTES: left voice mail to Dr. Chang regarding Magnesium 1.7 and PT and INR, will wait for call back.
--- NOTE | 2019-09-25 07:04 | NUR ---
NURSE NOTES: Dr. Chang stated it is okay to give CT ABD/Pelvic result to pt's daughter and more lab results. and no new order for mag 1.7. noted and will carry on.
--- NOTE | 2019-09-25 07:13 | NUR ---
HAND-OFF: Report given to Saqib RODRIGEZ. pt is in stable condition.
--- NOTE | 2019-09-25 07:18 | NUR ---
NURSE NOTES: Received report from ELIA Moreno. Patient is sleeping in bed, room air, in stable condition. Observed no presence of pain or discomfort at this time. Per night nurse, spoke with Dr. Chang and per MD tsang to give results of CT Abd/pelvic to family, MD also aware of magnesium level of 1.7 and no new orders given at this time. Bed is in lowest position, brakes engaged. Call light is kept within easy reach. Will continue to monitor patient.
[2019-09-25 08:00] VITALS: BP 142/78
[2019-09-25] MEDS: Docusate 100mg cap ORAL SCH ×3 (08:17→17:35)
[2019-09-25] MEDS: Meropenem 1 GM in NS 55 ML IVPB SCH ×2 (08:20→20:11)
--- NOTE | 2019-09-25 08:58 | NUR ---
NURSE NOTES: Patient refused breakfast. Inquired patient preference in meals. Will inform kitchen. Noted. Will continue to monitor patient.
--- NOTE | 2019-09-25 10:15 | NUR ---
NURSE NOTES: Called and informed Dr. Flores that per microbiology patient has blood culture positive for E. coli ESBL. Patient is on Merrem 1 gm IVPB Q12HR, patient is afebrile. Dr. Flores acknowledged, no new orders given at this time. Will continue to monitor patient.
[2019-09-25 12:00] VITALS: BP 124/89
--- NOTE | 2019-09-25 13:20 | NUR ---
NURSE NOTES: Patient c/o chest pain, unable to state level of pain on a 0-10 pain scale. SpO2 99%, bilateral lung sounds clear. Currently patient does not have PRN pain medication. Called and left message with Dr. Chagn for PRN pain medications. Awaiting call back. Will continue to monitor patient.
[2019-09-25 16:00] VITALS: BP 122/77
--- NOTE | 2019-09-25 16:00 | Consultation ---
DATE OF CONSULTATION: 09/25/2019 CONSULTING PHYSICIAN: Pop Santos M.D. REFERRING PHYSICIAN: Kj Chang M.D. CHIEF COMPLAINT: Cecal mass, anemia. HISTORY OF PRESENT ILLNESS: Most of the history per chart. This is an 89-year-old female admitted to the hospital with complaint of altered mental status. The patient was found to have pyuria and urinary tract infection. Also, CT of the abdomen and pelvis showed evidence of cecal mass, so GI consult requested for evaluation. PAST MEDICAL HISTORY: 1. History of hypercoagulable state, on Coumadin. 2. History of DVT. 3. Diabetes type 2. 4. Osteoarthritis. 5. Hypothyroidism. 6. Depression. 7. 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 8. History of diverticulosis. 9. Colonic polyps. 10. Hiatal hernia. 11. Hemorrhoids. ALLERGIES: To cephalexin, clindamycin, penicillin, and sulfa. MEDICATIONS: Please see medication reconciliation list. PAST SURGICAL HISTORY: Total knee replacement, cataract surgery, carpal tunnel surgery, , and IVC filter placement. REVIEW OF SYSTEMS: At this time is limited. PHYSICAL EXAMINATION: VITAL SIGNS: Temperature is 97.1, pulse 71, respirations 19, and blood pressure 124/65. HEENT: Normocephalic and atraumatic. Pale conjunctivae. NECK: Supple. No evidence of obvious lymphadenopathy. CARDIOVASCULAR: Regular rate and rhythm. Plus S1 and S2. No obvious murmur. LUNGS: Decreased breath sounds bilaterally based on the supine exam. ABDOMEN: Soft, nontender. No rebound. No guarding. No peritoneal signs. EXTREMITIES: No cyanosis, no clubbing, no edema. LABORATORY DATA: White count 9.7, hemoglobin 10, hematocrit 28, and platelet count 289,000. Chem-7 - sodium 140, potassium 3.5, BUN 15, and creatinine 0.9. ASSESSMENT AND PLAN: This is an 89-year-old female with admission to the hospital with UTI and altered mental status, found to be anemic, has a large cecal mass questionable with metastasis. At this time, the patient is currently still on Coumadin. This patient requires multidisciplinary consultation and also with the patient and the family regarding family wishes and the patient's wishes for her care. She is 89 years old with most probably diagnosis of colon cancer. At one point, might need a surgery given the large size of the tumor and the location might cause a small bowel obstruction, but again it is the family who needs to be involved. The patient needs to be involved in terms of final goals, which the goal is to get everything done, then the patient needs to be getting off of the Coumadin, placed on heparin drip. The heparin to be held the night before colonoscopy for diagnosis and then followed by surgery if this patient is a candidate. Meanwhile, we are going to continue on monitoring labs, order CEA for tomorrow. I will recommend again Coumadin to be held if the patient is going for any GI procedures and if the family want us everything done. I want to thank Dr. Kj Chang for this kind referral. Pop Santos M.D. DR: WILLIS JOB#: [id number] CC:
[2019-09-25] MEDS ORDERED: Warfarin Sodium 3mg ORAL SCH (17:00)
[2019-09-25] MEDS: D5NS 1,000 ML IV SCH (17:33)
--- NOTE | 2019-09-25 19:18 | General Progress Note ---
Assessment/Plan Status: stable, fever, hypovolemia Assessment/Plan: 1) Acute pyelonephritis due to E coli resistent to Levaquin 2) R colon Ca 3) Euvolemic Plan: Will need colonoscopy IV Ertapenem per ID Check CEA Subjective Allergies: Coded Allergies: CLINDAMYCIN (Verified Allergy, Unknown, 10/15/11) PENICILLINS (Verified Allergy, Unknown, 10/15/11) SULFA (SULFONAMIDE ANTIBIOTICS) (Verified Allergy, Unknown, 10/15/11) Subjective The Ecoli from blood is different from E coli from urine, The CT scan of abdomen is showing a large Cecal mass, still not eating much, no obvious mets on the CT Objective Last 24 Hour Vital Signs Date Time Temp Pulse Resp B/P (MAP) Pulse Ox O2 Delivery O2 Flow Rate FiO2 09/25/19 16:00 99 09/25/19 16:00 97.7 94 19 122/77 (92) 94 09/25/19 12:00 97.0 98 19 124/89 (101) 95 09/25/19 12:00 98 09/25/19 09:00 Room Air 09/25/19 08:00 97.0 83 19 142/78 (99) 95 09/25/19 08:00 83 09/25/19 04:00 97.1 81 19 125/65 (85) 100 09/25/19 04:00 71 09/25/19 00:00 97.3 88 19 130/77 (94) 100 09/24/19 23:36 74 09/24/19 21:00 Room Air 09/24/19 20:00 97.9 84 19 129/72 (91) 100 09/24/19 19:55 77 Intake and Output 09/24/19 09/25/19 19:00 07:00 Intake Total 900 ml 975 ml Output Total 500 ml 450 ml Balance 400 ml 525 ml Intake Oral 480 ml 320 ml IV Total 420 ml 655 ml Output Urine Total 500 ml 450 ml Laboratory Tests 09/25/19 03:55: Prothrombin Time 15.4H, Prothromb Time International Ratio 1.5H Height (Feet): 5 Height (Inches): 3.00 Weight (Pounds): 160 General Appearance: WD/WN EENT: PERRL/EOMI Neck: non-tender, normal alignment Cardiovascular: normal peripheral pulses, normal rate, no JVD Respiratory/Chest: lungs clear Abdomen: non tender, soft, no organomegaly Extremities: normal range of motion, non-tender Kj Chang MD Sep 25, 2019 19:18
[2019-09-25] MEDS ORDERED: Acetaminophen 650mg/20.3ml ORAL PRN (19:30)
--- NOTE | 2019-09-25 19:30 | NUR ---
NURSE NOTES: Received report from ELIA Gan. Pt is resting on the bed and awake and confused and forgetful. On RA and no sign of respiratory distress noted. On Tele monitor with SR. IV site intact and no sign of infiltration noted. On running with D5NS@ 60cc/hr. Still noted poor intake and MD aware. Dr. Chang visited and assessed Pt. Placed fall precaution. Will continue to care plan.
[2019-09-25 20:00] VITALS: BP 140/77
--- NOTE | 2019-09-25 20:52 | Infectious Diseases Prog Note ---
Assessment/Plan Problems: (1) Acute pyelonephritis Assessment & Plan: with MDR E coli source could be due to ureter obstruction from cecal mass , continue meropenem to cover for bacteremia too for two weeks , contact isolation (2) Severe sepsis Assessment & Plan: with ESBL producing E coli , source ? cecal mass with possible translocation to the blood . continue meropenem for two weeks . 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 , poor prognosis , with advanced age , may need palliative care (5) Hypercoagulable state Assessment & Plan: on coumadin Subjective ROS Limited/Unobtainable: Yes Allergies: Coded Allergies: CLINDAMYCIN (Verified Allergy, Unknown, 10/15/11) PENICILLINS (Verified Allergy, Unknown, 10/15/11) SULFA (SULFONAMIDE ANTIBIOTICS) (Verified Allergy, Unknown, 10/15/11) Subjective she was lying in bed awake and alert, comfortable, afebrile, no cough or SOB, no diarrhea Objective Vital Signs Last 24 Hour Vital Signs Date Time Temp Pulse Resp B/P (MAP) Pulse Ox O2 Delivery O2 Flow Rate FiO2 09/25/19 20:00 97.7 94 19 140/77 (98) 94 09/25/19 16:00 99 09/25/19 16:00 97.7 94 19 122/77 (92) 94 09/25/19 12:00 97.0 98 19 124/89 (101) 95 09/25/19 12:00 98 09/25/19 09:00 Room Air 09/25/19 08:00 97.0 83 19 142/78 (99) 95 09/25/19 08:00 83 09/25/19 04:00 97.1 81 19 125/65 (85) 100 09/25/19 04:00 71 09/25/19 00:00 97.3 88 19 130/77 (94) 100 09/24/19 23:36 74 09/24/19 21:00 Room Air Height (Feet): 5 Height (Inches): 3.00 Weight (Pounds): 160 General Appearance: no acute distress, cachetic HEENT: normocephalic, atraumatic, anicteric, mucous membranes moist, PERRL Respiratory/Chest: chest wall non-tender, lungs clear, normal breath sounds, no respiratory distress, no accessory muscle use Cardiovascular: normal peripheral pulses, normal rate, regular rhythm, no gallop/murmur, no JVD Abdomen: hypoactive bowel sounds, distended, tender, mass Genitourinary: normal external genitalia Extremities: no cyanosis, no clubbing Skin: no rash, no lesions Neurologic/Psychiatric: alert Lymphatic: no neck adenopathy, no groin adenopathy Musculoskeletal: normal muscle bulk, no effusion Laboratory Tests Test 09/25/19 03:55 Prothrombin Time 15.4 SEC (9.30-11.50) H Prothromb Time International Ratio 1.5 (0.9-1.1) H Current Medications Medications (Trade) Dose Ordered Sig/Patricia Route PRN Reason Start Time Stop Time Status Last Admin Dose Admin Acetaminophen (Tylenol) 650 mg Q4H PRN ORAL Mild Pain/Temp > 100.5 09/25/19 19:30 10/25/19 19:29 Barium Sulfate (Readi-Cat 2) 450 ml NOW PRN ORAL Radiology Procedure 09/24/19 10:00 09/26/19 09:58 Dextrose (Dextrose 50%) 25 ml Q30M PRN IV Hypoglycemia 09/22/19 20:45 10/22/19 20:44 Dextrose (Dextrose 50%) 50 ml Q30M PRN IV Hypoglycemia 09/22/19 20:45 10/22/19 20:44 Dextrose/Sodium Chloride 1,000 ml @ 60 mls/hr [id number] IV 09/22/19 21:37 10/22/19 21:36 09/25/19 17:33 Docusate Sodium (Colace) 100 mg THREE TIMES A DAY ORAL 09/23/19 09:00 10/23/19 08:59 09/25/19 17:35 Iohexol (OMNIPAQUE-300 100ml) 100 ml NOW PRN INJ Radiology Procedure 09/24/19 10:00 09/26/19 09:58 Levothyroxine Sodium (Synthroid) 88 mcg DAILY@0630 ORAL 09/23/19 06:30 10/23/19 06:29 09/25/19 05:42 Meropenem 1 gm/ Sodium Chloride 55 ml @ 110 mls/hr Q12H IVPB 09/23/19 20:00 09/28/19 19:59 09/25/19 20:11 Polyethylene Glycol (Miralax) 17 gm HSPRN PRN ORAL Constipation 09/22/19 20:45 10/22/19 20:44 Warfarin Sodium (Coumadin per pharmacy) 1 ea DAILY PRN MISC Per rx protocol 09/22/19 20:45 10/22/19 20:44 Keily Flores M.D. Sep 25, 2019 20:52
--- NOTE | 2019-09-25 21:33 | NUR ---
HAND-OFF: Report given to ELIA Perez. Pt is resting on the bed and no sign of acute distress noted.
--- NOTE | 2019-09-25 21:50 | NUR ---
NURSE NOTES: ASSUMED CARE FROM ELIA DÍAZ.RESTING COMFORTABLY,NO COMPLAIN OF PAIN.BREATHING UNLABORED AT ROOM AIR.IVF OF D5NS AT 60 CC/HR.REPOSITIONED PATIENT FOR COMFORT.PATIENT INCONTINENT OF BLADDER, PUREWICK INPLACE WITH ADEQUATE URINE OUTPUT,HAD A SMALL BOWEL MOVEMENT.GOOD JESSICA-CARE RENDERED,SACRAL BLANCHABLE REDNESS NOTED TO THE SACRAL AREA AND RIGHT HEEL.OPTIFOAM APPLIED FOR PROTECTION.BILATERAL HEELS ELEVATED WITH PILLOWS,REPOSITIONED PT.SINUS RHYTHM ON THE MONITOR.WILL CONTINUE PLAN OF CARE.
[2019-09-26] VITALS: BP 135/77
[2019-09-26 04:00] VITALS: BP 134/76
[2019-09-26 05:49] LABS: BASOPHILS % (AUTO) 0.9 % (0.0-2.0); EOSINOPHILS % (AUTO) 0.1 % (0.0-3.0); HEMATOCRIT 30.3 % (37.0-47.0); HEMOGLOBIN 10.6 G/DL (12.0-16.0); LYMPHOCYTES % (AUTO) 13.9 % (20.0-45.0); MEAN CORPUSCULAR VOLUME 96 FL (80-99); MONOCYTES % (AUTO) 9.8 % (1.0-10.0); NEUTROPHILS % (AUTO) 75.4 % (45.0-75.0); PLATELET COUNT 344 K/UL (150-450); RED BLOOD COUNT 3.15 M/UL (4.20-5.40); RED CELL DISTRIBUTION WIDTH 11.3 % (11.6-14.8); WHITE BLOOD COUNT 7.9 K/UL (4.8-10.8)
[2019-09-26 06:13] LABS: ALANINE AMINOTRANSFERASE 33 U/L (12-78); ALBUMIN 1.7 G/DL (3.4-5.0); ALBUMIN/GLOBULIN RATIO 0.4 (1.0-2.7); ALKALINE PHOSPHATASE 71 U/L (46-116); ANION GAP 6 mmol/L (5-15); ASPARTATE AMINO TRANSFERASE 34 U/L (15-37); BILIRUBIN,TOTAL 0.3 MG/DL (0.2-1.0); BLOOD UREA NITROGEN 16 mg/dL (7-18); CALCIUM 8.2 MG/DL (8.5-10.1); CARBON DIOXIDE 26 MMOL/L (21-32); CHLORIDE 108 MMOL/L (98-107); POTASSIUM 3.7 MMOL/L (3.5-5.1); SODIUM 139 MMOL/L (136-145)
[2019-09-26 06:14] LABS: PHOSPHORUS 2.7 MG/DL (2.5-4.9)
--- NOTE | 2019-09-26 07:30 | NUR ---
HAND-OFF: Report given to ELIA MEJIA.
--- NOTE | 2019-09-26 07:31 | NUR ---
NURSE NOTES: Received patient in bed. Awake, verbal, able to make some needs known. Room air, no respiratory distress. On continuous IVF per order. Bed in lowest position. Call light within reach. Will continue plan of care.
[2019-09-26 08:00] VITALS: BP 132/77
[2019-09-26] MEDS: Meropenem 1 GM in NS 55 ML IVPB SCH ×2 (08:08→21:15)
[2019-09-26] MEDS: D5NS 1,000 ML IV SCH (08:20)
--- NOTE | 2019-09-26 08:20 | NUR ---
NURSE NOTES: Patient's caregiver at bedside.
[2019-09-26] MEDS: Docusate 100mg cap ORAL SCH ×3 (09:26→17:40)
[2019-09-26 12:00] VITALS: BP 145/76
--- NOTE | 2019-09-26 12:50 | NUR ---
NURSE NOTES: Patient's family at bedside.
[2019-09-26] MEDS ORDERED: Sorbitol Solution UD 30ml ORAL SCH (13:15)
--- NOTE | 2019-09-26 14:02 | Infectious Diseases Prog Note ---
Assessment/Plan Problems: (1) Acute pyelonephritis Assessment & Plan: with MDR E coli source could be due to ureter obstruction from cecal mass , continue meropenem to cover for bacteremia too for two weeks , with contact isolation (2) Severe sepsis Assessment & Plan: with ESBL producing E coli , source ? cecal mass with possible translocation of the bacteria to the blood . continue meropenem for two weeks . await repeated blood culture to confirm clearance (3) Dehydration Assessment & Plan: due to the above , continue hydration , monitor lytes (4) Cecum mass Assessment & Plan: suspect malignancy , poor prognosis , with advanced age , may need palliative care, GI is consulted for possible colonoscopy (5) Hypercoagulable state Assessment & Plan: on coumadin Subjective ROS Limited/Unobtainable: Yes Allergies: Coded Allergies: CLINDAMYCIN (Verified Allergy, Unknown, 10/15/11) PENICILLINS (Verified Allergy, Unknown, 10/15/11) SULFA (SULFONAMIDE ANTIBIOTICS) (Verified Allergy, Unknown, 10/15/11) Subjective she was lying in bed comfortable, alert and responsive , denied any fever or pain , no nausea or vomiting Objective Vital Signs Last 24 Hour Vital Signs Date Time Temp Pulse Resp B/P (MAP) Pulse Ox O2 Delivery O2 Flow Rate FiO2 09/26/19 12:00 97.0 88 20 145/76 (99) 95 09/26/19 11:30 88 09/26/19 08:00 97.8 104 21 132/77 (95) 95 09/26/19 08:00 Room Air 09/26/19 07:52 106 09/26/19 04:00 Room Air 09/26/19 04:00 97.8 110 20 134/76 (95) 94 09/26/19 04:00 106 09/26/19 00:00 Room Air 09/26/19 00:00 97.7 93 20 135/77 (96) 94 09/26/19 00:00 91 09/25/19 20:00 Room Air 09/25/19 20:00 97.7 94 19 140/77 (98) 94 09/25/19 20:00 88 09/25/19 16:00 99 09/25/19 16:00 97.7 94 19 122/77 (92) 94 Height (Feet): 5 Height (Inches): 3.00 Weight (Pounds): 160 General Appearance: WD/WN, no acute distress HEENT: normocephalic, atraumatic, anicteric, mucous membranes moist, PERRL Respiratory/Chest: chest wall non-tender, lungs clear, normal breath sounds, no respiratory distress, no accessory muscle use Cardiovascular: normal peripheral pulses, normal rate, regular rhythm, no gallop/murmur, no JVD Abdomen: normal bowel sounds, soft, non tender, distended, mass Extremities: no cyanosis, no clubbing Skin: no rash, no lesions, no ulcers Neurologic/Psychiatric: alert, responsive Lymphatic: no neck adenopathy, no groin adenopathy Musculoskeletal: normal muscle bulk, no effusion Laboratory Tests Test 09/26/19 05:00 White Blood Count 7.9 K/UL (4.8-10.8) Red Blood Count 3.15 M/UL (4.20-5.40) L Hemoglobin 10.6 G/DL (12.0-16.0) L Hematocrit 30.3 % (37.0-47.0) L Mean Corpuscular Volume 96 FL (80-99) Mean Corpuscular Hemoglobin 33.7 PG (27.0-31.0) H Mean Corpuscular Hemoglobin Concent 35.0 G/DL (32.0-36.0) Red Cell Distribution Width 11.3 % (11.6-14.8) L Platelet Count 344 K/UL (150-450) Mean Platelet Volume 5.3 FL (6.5-10.1) L Neutrophils (%) (Auto) 75.4 % (45.0-75.0) H Lymphocytes (%) (Auto) 13.9 % (20.0-45.0) L Monocytes (%) (Auto) 9.8 % (1.0-10.0) Eosinophils (%) (Auto) 0.1 % (0.0-3.0) Basophils (%) (Auto) 0.9 % (0.0-2.0) Prothrombin Time 20.4 SEC (9.30-11.50) H Prothromb Time International Ratio 2.0 (0.9-1.1) H Sodium Level 139 MMOL/L (136-145) Potassium Level 3.7 MMOL/L (3.5-5.1) Chloride Level 108 MMOL/L (98-107) H Carbon Dioxide Level 26 MMOL/L (21-32) Anion Gap 6 mmol/L (5-15) Blood Urea Nitrogen 16 mg/dL (7-18) Creatinine 1.0 MG/DL (0.55-1.30) Estimat Glomerular Filtration Rate mL/min (>60) Glucose Level 154 MG/DL (74-106) H Calcium Level 8.2 MG/DL (8.5-10.1) L Phosphorus Level 2.7 MG/DL (2.5-4.9) Magnesium Level 1.9 MG/DL (1.8-2.4) Total Bilirubin 0.3 MG/DL (0.2-1.0) Aspartate Amino Transf (AST/SGOT) 34 U/L (15-37) Alanine Aminotransferase (ALT/SGPT) 33 U/L (12-78) Alkaline Phosphatase 71 U/L (46-116) Total Protein 6.5 G/DL (6.4-8.2) Albumin 1.7 G/DL (3.4-5.0) L Globulin 4.8 g/dL Albumin/Globulin Ratio 0.4 (1.0-2.7) L Carcinoembryonic Antigen Pending Current Medications Medications (Trade) Dose Ordered Sig/Patricia Route PRN Reason Start Time Stop Time Status Last Admin Dose Admin Acetaminophen (Tylenol) 650 mg Q4H PRN ORAL Mild Pain/Temp > 100.5 09/25/19 19:30 10/25/19 19:29 Dextrose (Dextrose 50%) 25 ml Q30M PRN IV Hypoglycemia 09/22/19 20:45 10/22/19 20:44 Dextrose (Dextrose 50%) 50 ml Q30M PRN IV Hypoglycemia 09/22/19 20:45 10/22/19 20:44 Dextrose/Sodium Chloride 1,000 ml @ 60 mls/hr [id number] IV 09/22/19 21:37 10/22/19 21:36 09/26/19 08:20 Docusate Sodium (Colace) 100 mg THREE TIMES A DAY ORAL 09/23/19 09:00 10/23/19 08:59 09/26/19 09:26 Levothyroxine Sodium (Synthroid) 88 mcg DAILY@0630 ORAL 09/23/19 06:30 10/23/19 06:29 09/26/19 06:38 Meropenem 1 gm/ Sodium Chloride 55 ml @ 110 mls/hr Q12H IVPB 09/23/19 20:00 09/28/19 19:59 09/26/19 08:08 Polyethylene Glycol (Miralax) 17 gm HSPRN PRN ORAL Constipation 09/22/19 20:45 10/22/19 20:44 Sorbitol (sorbitoL) 60 ml ONCE ORAL 09/26/19 13:15 09/26/19 14:15 Keily Flores M.D. Sep 26, 2019 14:02
[2019-09-26 16:00] VITALS: BP 136/80
--- NOTE | 2019-09-26 16:26 | NUR ---
RECYCLING SPECIALISTCOMMUNITY ENGAGEMENT MANAGER SI: DEHYDRATION,CECAL MASS T. 97.0 HR 106 RR 20 B/P 145/74 RA 98% IS: MEROPENEM IV IVF D5NS @ 100ML/HR SYNTHROID STEP DOWN STATUS
[2019-09-26] MEDS ORDERED: Warfarin Sodium 5mg ORAL SCH (17:00)
--- NOTE | 2019-09-26 19:42 | NUR ---
HAND-OFF: Report given to Chris Lee RN.
[2019-09-26 20:00] VITALS: BP 150/87
--- NOTE | 2019-09-26 20:59 | General Progress Note ---
Assessment/Plan Status: stable, fever, hypovolemia Assessment/Plan: 1) Acute pyelonephritis due to E coli resistent to Levaquin 2) R colon mass, R/O neuroendocrine tumor vs adeno CA 3) Euvolemic Plan: Will need colonoscopy IV Ertapenem per ID Will stop Coumadin Vitamin K Start her on heparin drip per pharmacy protocol as preparation Subjective Allergies: Coded Allergies: CLINDAMYCIN (Verified Allergy, Unknown, 10/15/11) PENICILLINS (Verified Allergy, Unknown, 10/15/11) SULFA (SULFONAMIDE ANTIBIOTICS) (Verified Allergy, Unknown, 10/15/11) Subjective TShe is doing ok, WBC is down to 7.9 K, INR is 2.0, GI opinion is appreciated Objective Last 24 Hour Vital Signs Date Time Temp Pulse Resp B/P (MAP) Pulse Ox O2 Delivery O2 Flow Rate FiO2 09/26/19 16:00 Room Air 09/26/19 16:00 97.9 85 20 136/80 (98) 95 09/26/19 15:29 88 09/26/19 12:00 97.0 88 20 145/76 (99) 95 09/26/19 12:00 Room Air 09/26/19 11:30 88 09/26/19 08:00 97.8 104 21 132/77 (95) 95 09/26/19 08:00 Room Air 09/26/19 07:52 106 09/26/19 04:00 Room Air 09/26/19 04:00 97.8 110 20 134/76 (95) 94 09/26/19 04:00 106 09/26/19 00:00 Room Air 09/26/19 00:00 97.7 93 20 135/77 (96) 94 09/26/19 00:00 91 Intake and Output 09/25/19 09/26/19 19:00 07:00 Intake Total 990 ml 745 ml Output Total 800 ml 1100 ml Balance 190 ml -355 ml Intake Oral 700 ml 30 ml IV Total 290 ml 715 ml Output Urine Total 800 ml 1100 ml # Bowel Movements 1 2 Laboratory Tests 09/26/19 05:00: White Blood Count 7.9, Red Blood Count 3.15L, Hemoglobin 10.6L, Hematocrit 30.3L , Mean Corpuscular Volume 96, Mean Corpuscular Hemoglobin 33.7H, Mean Corpuscular Hemoglobin Concent 35.0, Red Cell Distribution Width 11.3L, Platelet Count 344, Mean Platelet Volume 5.3L, Neutrophils (%) (Auto) 75.4H, Lymphocytes (%) (Auto) 13.9L, Monocytes (%) (Auto) 9.8, Eosinophils (%) (Auto) 0.1, Basophils (%) (Auto) 0.9, Prothrombin Time 20.4H, Prothromb Time International Ratio 2.0H, Sodium Level 139, Potassium Level 3.7, Chloride Level 108H, Carbon Dioxide Level 26, Anion Gap 6, Blood Urea Nitrogen 16, Creatinine 1.0, Estimat Glomerular Filtration Rate , Glucose Level 154H, Calcium Level 8.2L , Phosphorus Level 2.7, Magnesium Level 1.9, Total Bilirubin 0.3, Aspartate Amino Transf (AST/SGOT) 34, Alanine Aminotransferase (ALT/SGPT) 33, Alkaline Phosphatase 71, Total Protein 6.5, Albumin 1.7L, Globulin 4.8, Albumin/Globulin Ratio 0.4L, Carcinoembryonic Antigen [Pending] Height (Feet): 5 Height (Inches): 3.00 Weight (Pounds): 160 General Appearance: WD/WN, no apparent distress EENT: PERRL/EOMI, normal ENT inspection Neck: non-tender, normal alignment Cardiovascular: normal rate, regular rhythm Respiratory/Chest: lungs clear, normal breath sounds Abdomen: normal bowel sounds, non tender, soft Extremities: normal range of motion, non-tender Edema: trace edema Neurologic: cafeteria or lunchroom checker II-XII grossly normal Kj Chang MD Sep 26, 2019 20:59
[2019-09-26] MEDS ORDERED: Phytonadione 10 mg/mL 1ml amp SUBQ SCH (21:00)
--- NOTE | 2019-09-26 21:39 | General Progress Note ---
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 Neuroendocrine, ? 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 - h/o colon polyps - h/o diverticulosis - UTI/Sepsis Recommendations - GI prep over next few days - Hold coumadin - reverse anticoagulation - colonoscopy later this week, likely - abx Subjective Allergies: Coded Allergies: CLINDAMYCIN (Verified Allergy, Unknown, 10/15/11) PENICILLINS (Verified Allergy, Unknown, 10/15/11) SULFA (SULFONAMIDE ANTIBIOTICS) (Verified Allergy, Unknown, 10/15/11) Subjective Above noted feels OK denies complaints confused disoriented d/w DTR and son in law (a plastic surgeon) re all findings family wants to be aggressive with care they want to evaluate mass and pursue surgical resection D/w PMD D/w Dr Valenzuela Objective Last 24 Hour Vital Signs Date Time Temp Pulse Resp B/P (MAP) Pulse Ox O2 Delivery O2 Flow Rate FiO2 09/26/19 16:00 Room Air 09/26/19 16:00 97.9 85 20 136/80 (98) 95 09/26/19 15:29 88 09/26/19 12:00 97.0 88 20 145/76 (99) 95 09/26/19 12:00 Room Air 09/26/19 11:30 88 09/26/19 08:00 97.8 104 21 132/77 (95) 95 09/26/19 08:00 Room Air 09/26/19 07:52 106 09/26/19 04:00 Room Air 09/26/19 04:00 97.8 110 20 134/76 (95) 94 09/26/19 04:00 106 09/26/19 00:00 Room Air 09/26/19 00:00 97.7 93 20 135/77 (96) 94 09/26/19 00:00 91 Intake and Output 09/25/19 09/26/19 19:00 07:00 Intake Total 990 ml 745 ml Output Total 800 ml 1100 ml Balance 190 ml -355 ml Intake Oral 700 ml 30 ml IV Total 290 ml 715 ml Output Urine Total 800 ml 1100 ml # Bowel Movements 1 2 Laboratory Tests 09/26/19 05:00: White Blood Count 7.9, Red Blood Count 3.15L, Hemoglobin 10.6L, Hematocrit 30.3L , Mean Corpuscular Volume 96, Mean Corpuscular Hemoglobin 33.7H, Mean Corpuscular Hemoglobin Concent 35.0, Red Cell Distribution Width 11.3L, Platelet Count 344, Mean Platelet Volume 5.3L, Neutrophils (%) (Auto) 75.4H, Lymphocytes (%) (Auto) 13.9L, Monocytes (%) (Auto) 9.8, Eosinophils (%) (Auto) 0.1, Basophils (%) (Auto) 0.9, Prothrombin Time 20.4H, Prothromb Time International Ratio 2.0H, Sodium Level 139, Potassium Level 3.7, Chloride Level 108H, Carbon Dioxide Level 26, Anion Gap 6, Blood Urea Nitrogen 16, Creatinine 1.0, Estimat Glomerular Filtration Rate , Glucose Level 154H, Calcium Level 8.2L , Phosphorus Level 2.7, Magnesium Level 1.9, Total Bilirubin 0.3, Aspartate Amino Transf (AST/SGOT) 34, Alanine Aminotransferase (ALT/SGPT) 33, Alkaline Phosphatase 71, Total Protein 6.5, Albumin 1.7L, Globulin 4.8, Albumin/Globulin Ratio 0.4L, Carcinoembryonic Antigen [Pending] Height (Feet): 5 Height (Inches): 3.00 Weight (Pounds): 160 Objective WDWN NCAT supple CTA RRR Abd soft ND NT no edema Colby Galindo MD Sep 26, 2019 21:39
[2019-09-26 21:52] LABS: BASOPHILS % (AUTO) 0.6 % (0.0-2.0); EOSINOPHILS % (AUTO) 0.1 % (0.0-3.0); HEMATOCRIT 28.2 % (37.0-47.0); HEMOGLOBIN 9.8 G/DL (12.0-16.0); MEAN CORPUSCULAR VOLUME 96 FL (80-99); MONOCYTES % (AUTO) 10.9 % (1.0-10.0); NEUTROPHILS % (AUTO) 70.5 % (45.0-75.0); PLATELET COUNT 344 K/UL (150-450); RED BLOOD COUNT 2.94 M/UL (4.20-5.40); RED CELL DISTRIBUTION WIDTH 11.3 % (11.6-14.8); WHITE BLOOD COUNT 7.5 K/UL (4.8-10.8)
[2019-09-26] MEDS ORDERED: Heparin 25,000u/D5W 500ml 500 ML IV SCH (22:30)
[2019-09-27] VITALS: BP 134/75
--- NOTE | 2019-09-27 00:28 | NUR ---
NURSE NOTES: Received pt from ELIA schmitz. Pt awake, alert, and talkative. Bed in lowest position. Call light within reach. Heparin Drip running at 18U/hr. Timed PTT will be redrawn at 0400. IV fluids running at 60/hr. Bed alarm on. Will continue to monitor.
[2019-09-27] MEDS: D5NS 1,000 ML IV SCH ×2 (02:05→18:17)
[2019-09-27 04:00] VITALS: BP 104/65
[2019-09-27 05:56] LABS: INR 2.7 (0.9-1.1)
[2019-09-27 06:12] LABS: BASOPHILS % (AUTO) 0.8 % (0.0-2.0); HEMATOCRIT 29.3 % (37.0-47.0); HEMOGLOBIN 10.1 G/DL (12.0-16.0); LYMPHOCYTES % (AUTO) 17.4 % (20.0-45.0); MEAN CORPUSCULAR VOLUME 97 FL (80-99); MONOCYTES % (AUTO) 11.8 % (1.0-10.0); NEUTROPHILS % (AUTO) 70.1 % (45.0-75.0); PLATELET COUNT 333 K/UL (150-450); RED BLOOD COUNT 3.02 M/UL (4.20-5.40); RED CELL DISTRIBUTION WIDTH 11.5 % (11.6-14.8); WHITE BLOOD COUNT 8.5 K/UL (4.8-10.8)
[2019-09-27 06:18] LABS: ALANINE AMINOTRANSFERASE 32 U/L (12-78); ALBUMIN 1.6 G/DL (3.4-5.0); ALBUMIN/GLOBULIN RATIO 0.4 (1.0-2.7); ALKALINE PHOSPHATASE 65 U/L (46-116); ANION GAP 5 mmol/L (5-15); ASPARTATE AMINO TRANSFERASE 39 U/L (15-37); BILIRUBIN,TOTAL 0.2 MG/DL (0.2-1.0); BLOOD UREA NITROGEN 15 mg/dL (7-18); CALCIUM 8.1 MG/DL (8.5-10.1); CARBON DIOXIDE 26 MMOL/L (21-32); CHLORIDE 108 MMOL/L (98-107); CREATININE 0.9 MG/DL (0.55-1.30); POTASSIUM 3.5 MMOL/L (3.5-5.1); SODIUM 139 MMOL/L (136-145)
--- NOTE | 2019-09-27 07:39 | NUR ---
NURSE NOTES: Received bedside report from aMryan RODRIGEZ. Pt. in bed, awake, a/o x 2-3. Forgetful. No sign of distress. On R.A. Denies pain at present. IV site at right FA #22g and right AC #20g. in placed running D5NS at 60cc/hr. On Heparin drip on hold will start at 0745 at 14u/kg/hr. No s/sx of bleeding. Bed in low position, locked. Call light within reach. Will cont. to monitor.
--- NOTE | 2019-09-27 07:43 | NUR ---
HAND-OFF: Report given to ELIA Granda. Endorsed pts Heparin drip rate change at 0745 to 14u. Pt stable.
[2019-09-27] MEDS ORDERED: Heparin 25,000u/D5W 500ml 500 ML IV SCH ×2 (07:45→17:45)
[2019-09-27 08:00] VITALS: BP 130/70
[2019-09-27] MEDS: Docusate 100mg cap ORAL SCH ×3 (08:50→18:00)
[2019-09-27] MEDS: Meropenem 1 GM in NS 55 ML IVPB SCH ×2 (08:50→20:09)
[2019-09-27 12:00] VITALS: BP 128/69
--- NOTE | 2019-09-27 13:13 | Consultation ---
History of Present Illness General Date patient seen: Sep 27, 2019 Reason for Hospitalization: Altered Mental Status Present Illness HPI This is a very pleasant 89-year-old female with multiple medical comorbidities who is currently hospitalized for altered mental status and during work-up was identified to have a large cecal mass. Surgery was called to evaluate and assist with care. Patient seen, [place], chart reviewed. Patient denies any nausea vomiting fever chills. Denies any pain. Her caretakers at bedside with her. Case was discussed in detail with GI. Allergies: Coded Allergies: CLINDAMYCIN (Verified Allergy, Unknown, 10/15/11) PENICILLINS (Verified Allergy, Unknown, 10/15/11) SULFA (SULFONAMIDE ANTIBIOTICS) (Verified Allergy, Unknown, 10/15/11) Medication History Scheduled Docusate Sodium* (Docusate Sodium*), 1,000 MG ORAL THREE TIMES A DAY, (Reported) Levothyroxine Sodium* (Synthroid*), 88 MCG ORAL DAILY, (Reported) Omeprazole (Omeprazole), 40 MG ORAL DAILY, (Reported) Simvastatin (Zocor), 40 MG ORAL BEDTIME, (Reported) Warfarin Sod* (Warfarin Sod*), 5 MG ORAL DAILY, (Reported) Miscellaneous Medications Desvenlafaxine Succinate (Pristiq Er), 50 MG PO, (Reported) Patient History Limited by: age, medical condition History Provided By: Patient, Medical Record, PMD Healthcare decision maker Resuscitation status Advanced Directive on File Past Medical/Surgical History Past Medical/Surgical History: (1) Dementia (2) Severe sepsis (3) Warfarin anticoagulation (4) Altered mental status (5) Hypothyroid (6) Dehydration (7) Acute pyelonephritis (8) Hypercoagulable state (9) Cecum mass Review of Systems Review of Symptoms General ROS: no weight loss or fever Psychological ROS: no depression or mood changes, no memory loss Ophthalmic ROS: no visual changes or eye irritation ENT ROS: no nasal congestion, hearing loss, dizziness Allergy and Immunology ROS: no allergic symptoms or urticaria Hematological and Lymphatic ROS: no swollen glands, unusual bleeding or bruising Endocrine ROS: no polyuria, polydipsia, weight changes, temperature intolerance Respiratory ROS: no cough, shortness of breath, or wheezing Cardiovascular ROS: no chest pain or dyspnea on exertion Gastrointestinal ROS: denies abdominal pain, bright red blood in stool. Musculoskeletal ROS: no myalgias or arthralgias Neurological ROS: no TIA or stroke symptoms Dermatological ROS: no new or changing skin lesions, rashes or pruritis Physical Exam Physical Exam General appearance: alert, cooperative, no distress, appears stated age Head: Normocephalic, without obvious abnormality, atraumatic Eyes: conjunctivae/corneas clear. PERRL, EOM's intact. Fundi benign Throat: Lips, mucosa, and tongue normal. Teeth and gums normal Neck: supple, symmetrical, trachea midline, no adenopathy, thyroid: not enlarged, symmetric, no tenderness/mass/nodules, no carotid bruit and no JVD Lungs: clear to auscultation bilaterally Heart: regular rate and rhythm, S1, S2 normal, no murmur, click, rub or gallop Abdomen: soft, non-tender. Bowel sounds normal. No masses, no organomegaly a prior infraumbilical midline incision well-healed noted. Furthermore a prior what seems to be abdominal plasty low pelvic long transverse incision well- healed. Extremities: extremities normal, atraumatic, no cyanosis or edema Pulses: 2+ and symmetric Skin: Skin color, texture, turgor normal. No rashes or lesions Neurologic: Grossly normal Last 24 Hour Vital Signs Date Time Temp Pulse Resp B/P (MAP) Pulse Ox O2 Delivery O2 Flow Rate FiO2 09/27/19 12:00 Room Air 09/27/19 08:00 95 09/27/19 08:00 98.3 94 20 130/70 (90) 96 09/27/19 08:00 Room Air 09/27/19 04:00 Room Air 09/27/19 04:00 82 09/27/19 04:00 97.8 89 24 104/65 (78) 97 09/27/19 00:00 98.4 83 20 134/75 (94) 95 09/27/19 00:00 Room Air 09/27/19 00:00 82 09/26/19 20:00 98.2 93 20 150/87 (108) 95 09/26/19 20:00 83 09/26/19 20:00 Room Air 09/26/19 16:00 Room Air 09/26/19 16:00 97.9 85 20 136/80 (98) 95 09/26/19 15:29 88 Intake and Output 09/26/19 09/27/19 19:00 07:00 Intake Total 995 ml 519.508 ml Output Total 800 ml Balance 195 ml 519.508 ml Intake Oral 240 ml IV Total 755 ml 519.508 ml Output Urine Total 800 ml # Voids 2 3 # Bowel Movements 10 10 Laboratory Tests Test 09/26/19 21:45 09/27/19 04:35 White Blood Count 7.5 K/UL (4.8-10.8) 8.5 K/UL (4.8-10.8) Red Blood Count 2.94 M/UL (4.20-5.40) L 3.02 M/UL (4.20-5.40) L Hemoglobin 9.8 G/DL (12.0-16.0) L 10.1 G/DL (12.0-16.0) L Hematocrit 28.2 % (37.0-47.0) L 29.3 % (37.0-47.0) L Mean Corpuscular Volume 96 FL (80-99) 97 FL (80-99) Mean Corpuscular Hemoglobin 33.4 PG (27.0-31.0) H 33.5 PG (27.0-31.0) H Mean Corpuscular Hemoglobin Concent 34.8 G/DL (32.0-36.0) 34.5 G/DL (32.0-36.0) Red Cell Distribution Width 11.3 % (11.6-14.8) L 11.5 % (11.6-14.8) L Platelet Count 344 K/UL (150-450) 333 K/UL (150-450) Mean Platelet Volume 5.2 FL (6.5-10.1) L 5.5 FL (6.5-10.1) L Neutrophils (%) (Auto) 70.5 % (45.0-75.0) 70.1 % (45.0-75.0) Lymphocytes (%) (Auto) 18.0 % (20.0-45.0) L 17.4 % (20.0-45.0) L Monocytes (%) (Auto) 10.9 % (1.0-10.0) H 11.8 % (1.0-10.0) H Eosinophils (%) (Auto) 0.1 % (0.0-3.0) 0.0 % (0.0-3.0) Basophils (%) (Auto) 0.6 % (0.0-2.0) 0.8 % (0.0-2.0) Activated Partial Thromboplast Time 45 SEC (23-33) H > 150 SEC (23-33) *H Prothrombin Time 27.2 SEC (9.30-11.50) H Prothromb Time International Ratio 2.7 (0.9-1.1) H Sodium Level 139 MMOL/L (136-145) Potassium Level 3.5 MMOL/L (3.5-5.1) Chloride Level 108 MMOL/L (98-107) H Carbon Dioxide Level 26 MMOL/L (21-32) Anion Gap 5 mmol/L (5-15) Blood Urea Nitrogen 15 mg/dL (7-18) Creatinine 0.9 MG/DL (0.55-1.30) Estimat Glomerular Filtration Rate mL/min (>60) Glucose Level 125 MG/DL (74-106) H Calcium Level 8.1 MG/DL (8.5-10.1) L Magnesium Level 1.9 MG/DL (1.8-2.4) Total Bilirubin 0.2 MG/DL (0.2-1.0) Aspartate Amino Transf (AST/SGOT) 39 U/L (15-37) H Alanine Aminotransferase (ALT/SGPT) 32 U/L (12-78) Alkaline Phosphatase 65 U/L (46-116) Total Protein 5.9 G/DL (6.4-8.2) L Albumin 1.6 G/DL (3.4-5.0) L Globulin 4.3 g/dL Albumin/Globulin Ratio 0.4 (1.0-2.7) L Height (Feet): 5 Height (Inches): 3.00 Weight (Pounds): 160 Medications Current Medications Medications (Trade) Dose Ordered Sig/Patricia Route PRN Reason Start Time Stop Time Status Last Admin Dose Admin Acetaminophen (Tylenol) 650 mg Q4H PRN ORAL Mild Pain/Temp > 100.5 09/25/19 19:30 10/25/19 19:29 Dextrose (Dextrose 50%) 25 ml Q30M PRN IV Hypoglycemia 09/22/19 20:45 10/22/19 20:44 Dextrose (Dextrose 50%) 50 ml Q30M PRN IV Hypoglycemia 09/22/19 20:45 10/22/19 20:44 Dextrose/Sodium Chloride 1,000 ml @ 60 mls/hr [id number] IV 09/22/19 21:37 10/22/19 21:36 09/27/19 02:05 Docusate Sodium (Colace) 100 mg THREE TIMES A DAY ORAL 09/23/19 09:00 10/23/19 08:59 09/26/19 09:26 Heparin Sodium/ Dextrose 500 ml @ 20.321 mls/ hr ADJUST PER PROTOCOL IV 09/27/19 07:45 10/27/19 07:44 09/27/19 08:03 Levothyroxine Sodium (Synthroid) 88 mcg DAILY@0630 ORAL 09/23/19 06:30 10/23/19 06:29 09/27/19 05:54 Meropenem 1 gm/ Sodium Chloride 55 ml @ 110 mls/hr Q12H IVPB 09/23/19 20:00 10/07/19 23:59 09/27/19 08:50 Polyethylene Glycol (Miralax) 17 gm HSPRN PRN ORAL Constipation 09/22/19 20:45 10/22/19 20:44 Assessment/Plan Problem List: (1) Cecum mass Assessment & Plan: This 89-year-old female with recently identified large cecal mass. Surgery called to evaluate. Discussed case with GI in detail. Patient is not obstructed and asymptomatic from the mass. Interval development of masses compared to prior imaging. Patient is planned for colonoscopy for evaluation of mass. Currently on coagulation hypercoagulable Will await colonoscopy results when able to perform after coagulopathy resolved No acute surgical intervention planned patient is nonobstructed and fairly asymptomatic from this recently identified cecal mass We will need to have a long discussion with patient's family regards to care plan and goals of care given her age and overall condition Okay for diet from surgical standpoint otherwise We will follow with recommendations thank you for let me participate in patient' s care ABDOMEN: Liver: Unremarkable. No mass. Gallbladder and bile ducts: Unremarkable. No calcified stones. No ductal dilation. Pancreas: Unremarkable. No mass. No ductal dilation. Spleen: Unremarkable. No splenomegaly. Adrenals: Unremarkable. No mass. Kidneys and ureters: Unremarkable. No solid mass. No hydronephrosis. Stomach and bowel: A 7.2 x 6.3 x 7.2 cm intraluminal mass in the cecum as developed and is associated with mild wall thickening of the terminal ileum. Scattered colonic diverticuli are present. Large hiatal hernia as increased in the interval configuration of the stomach is at risk for an organoaxial volvulus. No distention suspicious for bowel obstruction is evident. PELVIS: Appendix: The appendix is not well seen. Bladder: Unremarkable. No mass. Reproductive: Unremarkable as visualized. ABDOMEN and PELVIS: Intraperitoneal space: Unremarkable. No free air. No significant fluid collection. Bones/joints: The bones are demineralized and again show lumbar spinal levoscoliosis. No acute or aggressive-appearing osseous lesions are identified. Vertebroplasty at L5 is again identified. No dislocation. Soft tissues: Unremarkable. Vasculature: An IVC filter is present. Extensive atherosclerotic calcifications of an tortuous but normal caliber abdominal aorta. No abdominal aortic aneurysm. Lymph nodes: Unremarkable. No enlarged lymph nodes. IMPRESSION: Interval development of a large cecal mass likely explains the abnormal finding on recent renal ultrasound. This is of concern for a primary colonic malignancy with no findings currently suspicious for advanced extracolonic spread or distant metastatic disease. ICD Codes: K63.89 - Other specified diseases of intestine SNOMED: [id number], [id number] Shlomo Valenzuela Sep 27, 2019 13:13
--- NOTE | 2019-09-27 14:25 | CDS Physician Query ---
Clarification is required for compliance, coding accuracy, and to reflect severity of illness for this patient Dear Dr. Kj Chang M.D. Date: 09/27/2019 Registered Nurse Float Pool/CDS Name: Rosendo Laguerre This is a very pleasant 89-year-old white female who is acquainted to me from previous admissions, has a history of hypercoagulable state for which she is on Coumadin, was brought to the emergency room of [facility] after 2 to 3 days being somewhat lethargic and altered, was found to have a pyuria with white count of about 14,000, was given some Levaquin in the emergency room, and was decided to be admitted for further evaluation. "Altered Mental Status" documented in Consultation notes Please indicate the nature and chronicity of the condition below: [] Metabolic Encephalopathy [] Toxic Encephalopathy [] Toxic - Metabolic Encephalopathy [] Encephalopathy, Other [] Dementia with Delirium [] Hypoxic encephalopathy [] Posterior reversible encephalopathy syndrome [] Other: [] Not Applicable Present on Admission: [] Yes [] No [] Clinically Undetermined Physician signature Date Please also document in your Progress Notes and/or Discharge Summary and indicate if the condition was present on admission. MTDD
--- NOTE | 2019-09-27 14:55 | General Progress Note ---
Assessment/Plan Status: stable, fever, hypovolemia Assessment/Plan: 1) Acute pyelonephritis due to E coli resistent to Levaquin 2) R colon mass, R/O neuroendocrine tumor vs adeno CA 3) Euvolemic Plan: Will need colonoscopy IV Ertapenem per ID Continue Heparin drip for now Subjective Allergies: Coded Allergies: CLINDAMYCIN (Verified Allergy, Unknown, 10/15/11) PENICILLINS (Verified Allergy, Unknown, 10/15/11) SULFA (SULFONAMIDE ANTIBIOTICS) (Verified Allergy, Unknown, 10/15/11) Subjective She is started on Heparin drip, no bleeding, supposed to undergo colonoscopy in 2 days Objective Last 24 Hour Vital Signs Date Time Temp Pulse Resp B/P (MAP) Pulse Ox O2 Delivery O2 Flow Rate FiO2 09/27/19 12:00 97.9 92 19 128/69 (88) 96 09/27/19 12:00 Room Air 09/27/19 11:50 98 09/27/19 08:00 95 09/27/19 08:00 98.3 94 20 130/70 (90) 96 09/27/19 08:00 Room Air 09/27/19 04:00 Room Air 09/27/19 04:00 82 09/27/19 04:00 97.8 89 24 104/65 (78) 97 09/27/19 00:00 98.4 83 20 134/75 (94) 95 09/27/19 00:00 Room Air 09/27/19 00:00 82 09/26/19 20:00 98.2 93 20 150/87 (108) 95 09/26/19 20:00 83 09/26/19 20:00 Room Air 09/26/19 16:00 Room Air 09/26/19 16:00 97.9 85 20 136/80 (98) 95 09/26/19 15:29 88 Intake and Output 09/26/19 09/27/19 19:00 07:00 Intake Total 995 ml 519.508 ml Output Total 800 ml Balance 195 ml 519.508 ml Intake Oral 240 ml IV Total 755 ml 519.508 ml Output Urine Total 800 ml # Voids 2 3 # Bowel Movements 10 10 Laboratory Tests 09/26/19 21:45: White Blood Count 7.5, Red Blood Count 2.94L, Hemoglobin 9.8L, Hematocrit 28.2L , Mean Corpuscular Volume 96, Mean Corpuscular Hemoglobin 33.4H, Mean Corpuscular Hemoglobin Concent 34.8, Red Cell Distribution Width 11.3L, Platelet Count 344, Mean Platelet Volume 5.2L, Neutrophils (%) (Auto) 70.5, Lymphocytes (%) (Auto) 18.0L, Monocytes (%) (Auto) 10.9H, Eosinophils (%) (Auto ) 0.1, Basophils (%) (Auto) 0.6, Activated Partial Thromboplast Time 45H 09/27/19 04:35: White Blood Count 8.5, Red Blood Count 3.02L, Hemoglobin 10.1L, Hematocrit 29.3L , Mean Corpuscular Volume 97, Mean Corpuscular Hemoglobin 33.5H, Mean Corpuscular Hemoglobin Concent 34.5, Red Cell Distribution Width 11.5L, Platelet Count 333, Mean Platelet Volume 5.5L, Neutrophils (%) (Auto) 70.1, Lymphocytes (%) (Auto) 17.4L, Monocytes (%) (Auto) 11.8H, Eosinophils (%) (Auto ) 0.0, Basophils (%) (Auto) 0.8, Activated Partial Thromboplast Time > 150*H, Prothrombin Time 27.2H, Prothromb Time International Ratio 2.7H, Sodium Level 139, Potassium Level 3.5, Chloride Level 108H, Carbon Dioxide Level 26, Anion Gap 5, Blood Urea Nitrogen 15, Creatinine 0.9, Estimat Glomerular Filtration Rate , Glucose Level 125H, Calcium Level 8.1L, Magnesium Level 1.9, Total Bilirubin 0.2, Aspartate Amino Transf (AST/SGOT) 39H, Alanine Aminotransferase ( ALT/SGPT) 32, Alkaline Phosphatase 65, Total Protein 5.9L, Albumin 1.6L, Globulin 4.3, Albumin/Globulin Ratio 0.4L Height (Feet): 5 Height (Inches): 3.00 Weight (Pounds): 160 General Appearance: WD/WN, no apparent distress EENT: PERRL/EOMI Neck: non-tender Cardiovascular: normal rate, regular rhythm Respiratory/Chest: lungs clear, normal breath sounds Abdomen: normal bowel sounds, non tender, soft Neurologic: merchandising coordinator II-XII grossly normal, no motor/sensory deficits Kj hCang MD Sep 27, 2019 14:55
--- NOTE | 2019-09-27 15:39 | Infectious Diseases Prog Note ---
Assessment/Plan Problems: (1) Acute pyelonephritis Assessment & Plan: with MDR E coli source could be due to ureter obstruction from cecal mass , continue meropenem to cover for bacteremia too for two weeks , with contact isolation for now (2) Severe sepsis Assessment & Plan: with ESBL producing E coli , source ? cecal mass with possible translocation of the bacteria to the blood . continue meropenem for two weeks . repeated blood culture on 09/25 is NTD which confirm clearance . 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 , poor prognosis , with advanced age , may need palliative care, GI is consulted for possible colonoscopy (5) Hypercoagulable state Assessment & Plan: on coumadin Subjective Constitutional: Reports: no symptoms HEENT: Reports: no symptoms Respiratory: Reports: no symptoms Breasts: Reports: no symptoms Cardiovascular: Reports: no symptoms Gastrointestinal/Abdominal: Reports: no symptoms Genitourinary: Reports: no symptoms Neurologic: Reports: no symptoms Psychiatric: Reports: no symptoms Skin: Reports: no symptoms Endocrine: Reports: no symptoms Hematologic: Reports: no symptoms Musculoskeletal: Reports: no symptoms Allergies: Coded Allergies: CLINDAMYCIN (Verified Allergy, Unknown, 10/15/11) PENICILLINS (Verified Allergy, Unknown, 10/15/11) SULFA (SULFONAMIDE ANTIBIOTICS) (Verified Allergy, Unknown, 10/15/11) Subjective she was lying in bed comfortable, alert and responsive , denied any fever or pain , no nausea or vomiting , has one bowel movement with diarrhea Objective Vital Signs Last 24 Hour Vital Signs Date Time Temp Pulse Resp B/P (MAP) Pulse Ox O2 Delivery O2 Flow Rate FiO2 09/27/19 12:00 97.9 92 19 128/69 (88) 96 09/27/19 12:00 Room Air 09/27/19 11:50 98 09/27/19 08:00 95 09/27/19 08:00 98.3 94 20 130/70 (90) 96 09/27/19 08:00 Room Air 09/27/19 04:00 Room Air 09/27/19 04:00 82 09/27/19 04:00 97.8 89 24 104/65 (78) 97 09/27/19 00:00 98.4 83 20 134/75 (94) 95 09/27/19 00:00 Room Air 09/27/19 00:00 82 09/26/19 20:00 98.2 93 20 150/87 (108) 95 09/26/19 20:00 83 09/26/19 20:00 Room Air 09/26/19 16:00 Room Air 09/26/19 16:00 97.9 85 20 136/80 (98) 95 Height (Feet): 5 Height (Inches): 3.00 Weight (Pounds): 160 General Appearance: WD/WN, no acute distress HEENT: normocephalic, atraumatic, anicteric, mucous membranes moist, PERRL Respiratory/Chest: chest wall non-tender, lungs clear, normal breath sounds, no respiratory distress, no accessory muscle use Cardiovascular: normal peripheral pulses, normal rate, regular rhythm, no gallop/murmur, no JVD Abdomen: normal bowel sounds, soft, non tender, no organomegaly, non distended , no mass, no scars Genitourinary: normal external genitalia Extremities: no cyanosis, no clubbing Skin: no rash, no lesions, no ulcers Neurologic/Psychiatric: egg candler II-XII grossly normal, alert, responsive Lymphatic: no neck adenopathy, no groin adenopathy Musculoskeletal: normal muscle bulk, no effusion Microbiology Date/Time Source Procedure Growth Status 09/25/19 21:30 Blood Blood Culture - Preliminary NO GROWTH AFTER 24 HOURS Resulted 09/25/19 21:30 Blood Blood Culture - Preliminary NO GROWTH AFTER 24 HOURS Resulted Laboratory Tests Test 09/26/19 21:45 09/27/19 04:35 White Blood Count 7.5 K/UL (4.8-10.8) 8.5 K/UL (4.8-10.8) Red Blood Count 2.94 M/UL (4.20-5.40) L 3.02 M/UL (4.20-5.40) L Hemoglobin 9.8 G/DL (12.0-16.0) L 10.1 G/DL (12.0-16.0) L Hematocrit 28.2 % (37.0-47.0) L 29.3 % (37.0-47.0) L Mean Corpuscular Volume 96 FL (80-99) 97 FL (80-99) Mean Corpuscular Hemoglobin 33.4 PG (27.0-31.0) H 33.5 PG (27.0-31.0) H Mean Corpuscular Hemoglobin Concent 34.8 G/DL (32.0-36.0) 34.5 G/DL (32.0-36.0) Red Cell Distribution Width 11.3 % (11.6-14.8) L 11.5 % (11.6-14.8) L Platelet Count 344 K/UL (150-450) 333 K/UL (150-450) Mean Platelet Volume 5.2 FL (6.5-10.1) L 5.5 FL (6.5-10.1) L Neutrophils (%) (Auto) 70.5 % (45.0-75.0) 70.1 % (45.0-75.0) Lymphocytes (%) (Auto) 18.0 % (20.0-45.0) L 17.4 % (20.0-45.0) L Monocytes (%) (Auto) 10.9 % (1.0-10.0) H 11.8 % (1.0-10.0) H Eosinophils (%) (Auto) 0.1 % (0.0-3.0) 0.0 % (0.0-3.0) Basophils (%) (Auto) 0.6 % (0.0-2.0) 0.8 % (0.0-2.0) Activated Partial Thromboplast Time 45 SEC (23-33) H > 150 SEC (23-33) *H Prothrombin Time 27.2 SEC (9.30-11.50) H Prothromb Time International Ratio 2.7 (0.9-1.1) H Sodium Level 139 MMOL/L (136-145) Potassium Level 3.5 MMOL/L (3.5-5.1) Chloride Level 108 MMOL/L (98-107) H Carbon Dioxide Level 26 MMOL/L (21-32) Anion Gap 5 mmol/L (5-15) Blood Urea Nitrogen 15 mg/dL (7-18) Creatinine 0.9 MG/DL (0.55-1.30) Estimat Glomerular Filtration Rate mL/min (>60) Glucose Level 125 MG/DL (74-106) H Calcium Level 8.1 MG/DL (8.5-10.1) L Magnesium Level 1.9 MG/DL (1.8-2.4) Total Bilirubin 0.2 MG/DL (0.2-1.0) Aspartate Amino Transf (AST/SGOT) 39 U/L (15-37) H Alanine Aminotransferase (ALT/SGPT) 32 U/L (12-78) Alkaline Phosphatase 65 U/L (46-116) Total Protein 5.9 G/DL (6.4-8.2) L Albumin 1.6 G/DL (3.4-5.0) L Globulin 4.3 g/dL Albumin/Globulin Ratio 0.4 (1.0-2.7) L Current Medications Medications (Trade) Dose Ordered Sig/Patricia Route PRN Reason Start Time Stop Time Status Last Admin Dose Admin Acetaminophen (Tylenol) 650 mg Q4H PRN ORAL Mild Pain/Temp > 100.5 09/25/19 19:30 10/25/19 19:29 Dextrose (Dextrose 50%) 25 ml Q30M PRN IV Hypoglycemia 09/22/19 20:45 10/22/19 20:44 Dextrose (Dextrose 50%) 50 ml Q30M PRN IV Hypoglycemia 09/22/19 20:45 10/22/19 20:44 Dextrose/Sodium Chloride 1,000 ml @ 60 mls/hr [id number] IV 09/22/19 21:37 10/22/19 21:36 09/27/19 02:05 Docusate Sodium (Colace) 100 mg THREE TIMES A DAY ORAL 09/23/19 09:00 10/23/19 08:59 09/26/19 09:26 Heparin Sodium/ Dextrose 500 ml @ 20.321 mls/ hr ADJUST PER PROTOCOL IV 09/27/19 07:45 10/27/19 07:44 09/27/19 08:03 Levothyroxine Sodium (Synthroid) 88 mcg DAILY@0630 ORAL 09/23/19 06:30 10/23/19 06:29 09/27/19 05:54 Meropenem 1 gm/ Sodium Chloride 55 ml @ 110 mls/hr Q12H IVPB 09/23/19 20:00 10/07/19 23:59 09/27/19 08:50 Polyethylene Glycol (Miralax) 17 gm HSPRN PRN ORAL Constipation 09/22/19 20:45 10/22/19 20:44 Keily Flores M.D. Sep 27, 2019 15:39
[2019-09-27 16:00] VITALS: BP 101/77
--- NOTE | 2019-09-27 19:05 | NUR ---
NURSE NOTES: Pt report received from Adelina RN SDU. pt remains stable. pt is alert and oriented times 2, able to follow commands. pt is on room air. able to sat at 100%, no resp distress noted. pt is on personnel monitor showing NSR, no cardiac distress noted. pt bed is low, locked, armed, bed rails up times 3, call light within reach. will follow plan of care.
--- NOTE | 2019-09-27 19:35 | NUR ---
HAND-OFF: Report given to Malik Castellon RN. Pt. remain stable. Addendum: 09/27/19 at 1936 by SINAN GUERRERO RN, RN Endorsed pt. on Heparin 11u/kg/hr and next PTT at 2330. No s/sx of bleeding noted.
[2019-09-27 20:00] VITALS: BP 126/68
[2019-09-27] MEDS ORDERED: Sorbitol Solution UD 30ml ORAL SCH (20:45)
--- NOTE | 2019-09-27 20:46 | General Progress Note ---
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 Neuroendocrine, ? 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 - h/o colon polyps - h/o diverticulosis - UTI/Sepsis Recommendations - GI prep - Coumadin on hold --> IV hep - reverse anticoagulation - colonoscopy - abx - monitor labs Subjective Allergies: Coded Allergies: CLINDAMYCIN (Verified Allergy, Unknown, 10/15/11) PENICILLINS (Verified Allergy, Unknown, 10/15/11) SULFA (SULFONAMIDE ANTIBIOTICS) (Verified Allergy, Unknown, 10/15/11) Subjective Above noted (+) BM with laxative d/w RN Objective Last 24 Hour Vital Signs Date Time Temp Pulse Resp B/P (MAP) Pulse Ox O2 Delivery O2 Flow Rate FiO2 09/27/19 16:00 Room Air 09/27/19 16:00 96.1 86 20 101/77 (85) 93 09/27/19 15:28 89 09/27/19 12:00 97.9 92 19 128/69 (88) 96 09/27/19 12:00 Room Air 09/27/19 11:50 98 09/27/19 08:00 95 09/27/19 08:00 98.3 94 20 130/70 (90) 96 09/27/19 08:00 Room Air 09/27/19 04:00 Room Air 09/27/19 04:00 82 09/27/19 04:00 97.8 89 24 104/65 (78) 97 09/27/19 00:00 98.4 83 20 134/75 (94) 95 09/27/19 00:00 Room Air 09/27/19 00:00 82 Intake and Output 09/26/19 09/27/19 19:00 07:00 Intake Total 995 ml 519.508 ml Output Total 800 ml Balance 195 ml 519.508 ml Intake Oral 240 ml IV Total 755 ml 519.508 ml Output Urine Total 800 ml # Voids 2 3 # Bowel Movements 10 10 Laboratory Tests 09/26/19 21:45: White Blood Count 7.5, Red Blood Count 2.94L, Hemoglobin 9.8L, Hematocrit 28.2L , Mean Corpuscular Volume 96, Mean Corpuscular Hemoglobin 33.4H, Mean Corpuscular Hemoglobin Concent 34.8, Red Cell Distribution Width 11.3L, Platelet Count 344, Mean Platelet Volume 5.2L, Neutrophils (%) (Auto) 70.5, Lymphocytes (%) (Auto) 18.0L, Monocytes (%) (Auto) 10.9H, Eosinophils (%) (Auto ) 0.1, Basophils (%) (Auto) 0.6, Activated Partial Thromboplast Time 45H 09/27/19 04:35: White Blood Count 8.5, Red Blood Count 3.02L, Hemoglobin 10.1L, Hematocrit 29.3L , Mean Corpuscular Volume 97, Mean Corpuscular Hemoglobin 33.5H, Mean Corpuscular Hemoglobin Concent 34.5, Red Cell Distribution Width 11.5L, Platelet Count 333, Mean Platelet Volume 5.5L, Neutrophils (%) (Auto) 70.1, Lymphocytes (%) (Auto) 17.4L, Monocytes (%) (Auto) 11.8H, Eosinophils (%) (Auto ) 0.0, Basophils (%) (Auto) 0.8, Activated Partial Thromboplast Time > 150*H, Prothrombin Time 27.2H, Prothromb Time International Ratio 2.7H, Sodium Level 139, Potassium Level 3.5, Chloride Level 108H, Carbon Dioxide Level 26, Anion Gap 5, Blood Urea Nitrogen 15, Creatinine 0.9, Estimat Glomerular Filtration Rate , Glucose Level 125H, Calcium Level 8.1L, Magnesium Level 1.9, Total Bilirubin 0.2, Aspartate Amino Transf (AST/SGOT) 39H, Alanine Aminotransferase ( ALT/SGPT) 32, Alkaline Phosphatase 65, Total Protein 5.9L, Albumin 1.6L, Globulin 4.3, Albumin/Globulin Ratio 0.4L 09/27/19 14:15: Activated Partial Thromboplast Time 128H Height (Feet): 5 Height (Inches): 3.00 Weight (Pounds): 160 Objective WDWN NCAT supple CTA RRR Abd soft ND NT no edema Colby Galindo MD Sep 27, 2019 20:46
[2019-09-28] VITALS: BP 128/57
--- NOTE | 2019-09-28 01:10 | NUR ---
NURSE NOTES: Spoke with pharmacist SILVIA from [facility]. stated pts current HEP DRIP rate and stated recent posted APTT Levels. Pharmacist ordered no change in Hep drip rate, maintain current rate and APTT lab draw with [facility].
--- NOTE | 2019-09-28 01:55 | NUR ---
NURSE NOTES: Spoke with Fam MURPHY to request new Hep bag label.
[2019-09-28] MEDS ORDERED: Heparin 25,000u/D5W 500ml 500 ML IV SCH ×5 (02:00→19:00)
--- NOTE | 2019-09-28 02:00 | NUR ---
NURSE NOTES: new heparin bag (500ML 5%DEX/ 64084V hep) removed from Pyxis.
--- NOTE | 2019-09-28 02:00 | NUR ---
NURSE NOTES: new heparin bag (500ML 5%DEX/ 54525V hep) removed from Pyxis. New bag has re started infusion at same rate. (refer to [facility].)
[2019-09-28 04:00] VITALS: BP 126/76
[2019-09-28 05:55] LABS: INR 1.5 (0.9-1.1)
[2019-09-28 05:58] LABS: BASOPHILS % (AUTO) 1.2 % (0.0-2.0); HEMATOCRIT 30.5 % (37.0-47.0); HEMOGLOBIN 10.5 G/DL (12.0-16.0); LYMPHOCYTES % (AUTO) 16.2 % (20.0-45.0); MEAN CORPUSCULAR VOLUME 97 FL (80-99); MONOCYTES % (AUTO) 8.7 % (1.0-10.0); PLATELET COUNT 353 K/UL (150-450); RED BLOOD COUNT 3.16 M/UL (4.20-5.40); RED CELL DISTRIBUTION WIDTH 11.5 % (11.6-14.8); WHITE BLOOD COUNT 7.4 K/UL (4.8-10.8)
[2019-09-28 06:20] LABS: ANION GAP 9 mmol/L (5-15); BLOOD UREA NITROGEN 13 mg/dL (7-18); CALCIUM 8.4 MG/DL (8.5-10.1); CARBON DIOXIDE 25 MMOL/L (21-32); CHLORIDE 108 MMOL/L (98-107); CREATININE 0.9 MG/DL (0.55-1.30); POTASSIUM 3.4 MMOL/L (3.5-5.1); SODIUM 142 MMOL/L (136-145)
--- NOTE | 2019-09-28 07:32 | NUR ---
HAND-OFF: Report given to MORGAN RODRIGEZ. pt remains stable.
--- NOTE | 2019-09-28 07:33 | NUR ---
NURSE NOTES: RECEIVED PATIENT FROM Shirley KUMRA RN. PATIENT IS LYING IN BED, AWAKE AND CONFUSED. HOOKED TO DELIVERY ASSOCIATE. ON ROOM AIR. SKIN ALTERATION NOTED DUE TO BOWEL INCONTINENCE. PIV'S ON R AC G20 AND R FA G22 WITH IVF RUNNING D5 NS AT 60ML/HR AND HEPARIN DRIP AT 12"U"/KG/HR FOLLOWING HOSPITAL PROTOCOL. CALL LIGHT WITHIN REACH. BED AT LOWEST POSITION. SIDE RAILS UP. WILL CONTINUE TO MONITOR.
[2019-09-28 08:00] VITALS: BP 126/73
[2019-09-28] MEDS ORDERED: Nulytely 4L ORAL ONE (08:00)
[2019-09-28] MEDS: Meropenem 1 GM in NS 55 ML IVPB SCH ×2 (08:11→20:05)
[2019-09-28] MEDS: Docusate 100mg cap ORAL SCH (08:11)
--- NOTE | 2019-09-28 09:30 | NUR ---
NURSE NOTES: SEEN AND EXAMINED BY DR ALTAMIRANO. CAREGIVER SEEN AT THE BEDSIDE. WILL CONTINUE TO MONITOR.
--- NOTE | 2019-09-28 10:00 | NUR ---
NURSE NOTES: PATIENT KEPT CLEAN AND DRY. NOTED 2X BM SINCE EARLY THIS MORNING. WILL CONTINUE TO MONITOR.
[2019-09-28] MEDS: D5NS 1,000 ML IV SCH (10:57)
--- NOTE | 2019-09-28 11:07 | NUR ---
NURSE NOTES: TRIED INSERTING NGT FOR BOWEL PREP BUT FAILED. INFORMED DR ALTAMIRANO. NEW ORDERS MADE. WILL CONTINUE TO MONITOR.
[2019-09-28 12:00] VITALS: BP 143/87
[2019-09-28] MEDS ORDERED: Magnesium Citrate Liq Btl ORAL SCH (13:00)
--- NOTE | 2019-09-28 14:01 | Infectious Diseases Prog Note ---
Assessment/Plan Problems: (1) Acute pyelonephritis Assessment & Plan: with MDR E coli source could be due to ureter obstruction from cecal mass , continue meropenem to cover for bacteremia too for two weeks , with contact isolation for now (2) Severe sepsis Assessment & Plan: with ESBL producing E coli , source ? cecal mass with possible translocation of the bacteria to the blood . continue meropenem for two weeks . repeated blood culture on 09/25 is NTD which confirm clearance . EOT 10/09/19 (3) Cecum mass Assessment & Plan: rule out malignancy , poor prognosis , with advanced age , GI is consulted for possible colonoscopy (4) Hypercoagulable state Assessment & Plan: off Coumadin due to colonoscopy procedure Subjective Constitutional: Reports: no symptoms HEENT: Reports: no symptoms Respiratory: Reports: no symptoms Breasts: Reports: no symptoms Cardiovascular: Reports: no symptoms Gastrointestinal/Abdominal: Reports: diarrhea Genitourinary: Reports: no symptoms Neurologic: Reports: confusion Psychiatric: Reports: no symptoms Skin: Reports: no symptoms Endocrine: Reports: no symptoms Hematologic: Reports: no symptoms Allergies: Coded Allergies: CLINDAMYCIN (Verified Allergy, Unknown, 10/15/11) PENICILLINS (Verified Allergy, Unknown, 10/15/11) SULFA (SULFONAMIDE ANTIBIOTICS) (Verified Allergy, Unknown, 10/15/11) Subjective she was alert and responsive , has frequent bowel movements due to colonoscopy preparations , denied any fever or pain , no nausea or vomiting Objective Vital Signs Last 24 Hour Vital Signs Date Time Temp Pulse Resp B/P (MAP) Pulse Ox O2 Delivery O2 Flow Rate FiO2 09/28/19 12:00 98.4 101 20 143/87 (105) 95 09/28/19 12:00 Room Air 09/28/19 12:00 97 09/28/19 08:00 Room Air 09/28/19 08:00 97.6 95 20 126/73 (90) 95 09/28/19 08:00 107 09/28/19 04:00 Room Air 09/28/19 04:00 97.6 95 20 126/76 (93) 99 09/28/19 04:00 89 09/28/19 00:00 98.0 87 21 128/57 (80) 99 09/28/19 00:00 Room Air 09/28/19 00:00 92 09/27/19 20:00 96 09/27/19 20:00 97.6 96 20 126/68 (87) 97 09/27/19 20:00 Room Air 09/27/19 16:00 Room Air 09/27/19 16:00 96.1 86 20 101/77 (85) 93 09/27/19 15:28 89 Height (Feet): 5 Height (Inches): 3.00 Weight (Pounds): 148 General Appearance: WD/WN, no acute distress HEENT: normocephalic, atraumatic, anicteric, mucous membranes moist, PERRL Respiratory/Chest: chest wall non-tender, lungs clear, normal breath sounds, no respiratory distress, no accessory muscle use Cardiovascular: normal peripheral pulses, normal rate, regular rhythm, no gallop/murmur, no JVD Abdomen: normal bowel sounds, soft, non tender, no organomegaly, non distended , no mass, no scars Extremities: no cyanosis, no clubbing Skin: no rash, no lesions, no ulcers Neurologic/Psychiatric: alert, responsive Lymphatic: no neck adenopathy, no groin adenopathy Musculoskeletal: normal muscle bulk, no effusion Microbiology Date/Time Source Procedure Growth Status 09/25/19 21:30 Blood Blood Culture - Preliminary NO GROWTH AFTER 48 HOURS Resulted 09/25/19 21:30 Blood Blood Culture - Preliminary NO GROWTH AFTER 48 HOURS Resulted Laboratory Tests Test 09/27/19 14:15 09/27/19 23:40 09/28/19 04:55 09/28/19 13:10 Activated Partial Thromboplast Time 128 SEC (23-33) H 89 SEC (23-33) H 56 SEC (23-33) H 49 SEC (23-33) H White Blood Count 7.4 K/UL (4.8-10.8) Red Blood Count 3.16 M/UL (4.20-5.40) L Hemoglobin 10.5 G/DL (12.0-16.0) L Hematocrit 30.5 % (37.0-47.0) L Mean Corpuscular Volume 97 FL (80-99) Mean Corpuscular Hemoglobin 33.2 PG (27.0-31.0) H Mean Corpuscular Hemoglobin Concent 34.3 G/DL (32.0-36.0) Red Cell Distribution Width 11.5 % (11.6-14.8) L Platelet Count 353 K/UL (150-450) Mean Platelet Volume 5.1 FL (6.5-10.1) L Neutrophils (%) (Auto) 74.0 % (45.0-75.0) Lymphocytes (%) (Auto) 16.2 % (20.0-45.0) L Monocytes (%) (Auto) 8.7 % (1.0-10.0) Eosinophils (%) (Auto) 0.0 % (0.0-3.0) Basophils (%) (Auto) 1.2 % (0.0-2.0) Prothrombin Time 15.4 SEC (9.30-11.50) H Prothromb Time International Ratio 1.5 (0.9-1.1) H Sodium Level 142 MMOL/L (136-145) Potassium Level 3.4 MMOL/L (3.5-5.1) L Chloride Level 108 MMOL/L (98-107) H Carbon Dioxide Level 25 MMOL/L (21-32) Anion Gap 9 mmol/L (5-15) Blood Urea Nitrogen 13 mg/dL (7-18) Creatinine 0.9 MG/DL (0.55-1.30) Estimat Glomerular Filtration Rate mL/min (>60) Glucose Level 140 MG/DL (74-106) H Calcium Level 8.4 MG/DL (8.5-10.1) L Current Medications Medications (Trade) Dose Ordered Sig/Patricia Route PRN Reason Start Time Stop Time Status Last Admin Dose Admin Acetaminophen (Tylenol) 650 mg Q4H PRN ORAL Mild Pain/Temp > 100.5 09/25/19 19:30 10/25/19 19:29 Dextrose (Dextrose 50%) 25 ml Q30M PRN IV Hypoglycemia 09/22/19 20:45 10/22/19 20:44 Dextrose (Dextrose 50%) 50 ml Q30M PRN IV Hypoglycemia 09/22/19 20:45 10/22/19 20:44 Dextrose/Sodium Chloride 1,000 ml @ 60 mls/hr [id number] IV 09/22/19 21:37 10/22/19 21:36 09/28/19 10:57 Heparin Sodium/ Dextrose 500 ml @ 17.418 mls/ hr ADJUST PER PROTOCOL IV 09/28/19 06:41 10/28/19 06:40 09/28/19 06:58 Levothyroxine Sodium (Synthroid) 88 mcg DAILY@0630 ORAL 09/23/19 06:30 10/23/19 06:29 09/28/19 05:45 Magnesium Citrate (Citrate Of Magnesia) 300 ml ONCE ORAL 09/28/19 13:00 09/28/19 18:00 09/28/19 12:33 Meropenem 1 gm/ Sodium Chloride 55 ml @ 110 mls/hr Q12H IVPB 09/23/19 20:00 10/07/19 23:59 09/28/19 08:11 Polyethylene Glycol (Miralax) 17 gm HSPRN PRN ORAL Constipation 09/22/19 20:45 10/22/19 20:44 Keily Flores M.D. Sep 28, 2019 14:01
[2019-09-28] MEDS ORDERED: Heparin 5000 units/ml inj IV SCH (14:02)
--- NOTE | 2019-09-28 14:15 | NUR ---
RD ASSESSMENT & RECOMMENDATIONS SEE CARE ACTIVITY FOR COMPLETE ASSESSMENT DAILY ESTIMATED NEEDS: Needs based on Diabetes/ 60.5kg 25-30 kcals/kg [id number] total kcals 1-1.3 g protein/kg 61-79 g total protein 25-30 mL/kg 3910-0008 total fluid mLs NUTRITION DIAGNOSIS: Altered nutrition related lab values R/T diabetes as evidenced by elev BGs (140, 125, 175) CURRENT DIET: CLEAR LIQUID DIET (colonoscopy tomorrow) PO DIET RECOMMENDATIONS: once diet advances: W/ poor PO -> liberalized REGULAR + Glucerna TID w/ meals ADDITIONAL RECOMMENDATIONS: * Calibrated bedscale wt for accurate CBW bedscale wt 133lbs vs EMR wt 160lbs * Once diet advances, add Glucerna TID w/ meals pending colonoscopy at this time * MVI x 1 as supplement * Monitor BGs closely, need for hypoglycemics, carb controlled diet * MVI x 1 as supplement
--- NOTE | 2019-09-28 14:45 | NUR ---
NURSE NOTES: FAMILY SEEN AT THE BEDSIDE. SON SIGNED THE CONSENT FOR COLONOSCOPY. PATIENT KEPT CLEAN AND DRY. NOTED 2 LOOSE BM. WILL CONTINUE TO MONITOR.
--- NOTE | 2019-09-28 14:46 | NUR ---
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 98.0 HR 82 RR 21 B/P 128/57 RA 98% K 3.4 PTT 49 IS: HEPARIN GTT MEROPENEM IV IVF D5NS@ 65ML/HR STEP DOWN STATUS
--- NOTE | 2019-09-28 14:48 | Surgery Progress Note ---
Surgery Progress Note Subjective Additional Comments colonoscopy tomorrow discussed with GI otherwise well Objective Last 24 Hour Vital Signs Date Time Temp Pulse Resp B/P (MAP) Pulse Ox O2 Delivery O2 Flow Rate FiO2 09/28/19 12:00 98.4 101 20 143/87 (105) 95 09/28/19 12:00 Room Air 09/28/19 12:00 97 09/28/19 08:00 Room Air 09/28/19 08:00 97.6 95 20 126/73 (90) 95 09/28/19 08:00 107 09/28/19 04:00 Room Air 09/28/19 04:00 97.6 95 20 126/76 (93) 99 09/28/19 04:00 89 09/28/19 00:00 98.0 87 21 128/57 (80) 99 09/28/19 00:00 Room Air 09/28/19 00:00 92 09/27/19 20:00 96 09/27/19 20:00 97.6 96 20 126/68 (87) 97 09/27/19 20:00 Room Air 09/27/19 16:00 Room Air 09/27/19 16:00 96.1 86 20 101/77 (85) 93 09/27/19 15:28 89 I&O Intake and Output 09/27/19 09/28/19 19:00 07:00 Intake Total 1174.823 ml 532.637 ml Output Total 300 ml Balance 1174.823 ml 232.637 ml Intake Oral 240 ml IV Total 934.823 ml 532.637 ml Output Urine Total 300 ml # Voids 3 # Bowel Movements 7 4 Cardiovascular: RSR Respiratory: clear Abdomen: soft, flat, non-tender, present bowel sounds, non-distended Extremities: no edema, no tenderness, no cyanosis Laboratory Tests Test 09/27/19 23:40 09/28/19 04:55 09/28/19 13:10 Activated Partial Thromboplast Time 89 SEC (23-33) H 56 SEC (23-33) H 49 SEC (23-33) H White Blood Count 7.4 K/UL (4.8-10.8) Red Blood Count 3.16 M/UL (4.20-5.40) L Hemoglobin 10.5 G/DL (12.0-16.0) L Hematocrit 30.5 % (37.0-47.0) L Mean Corpuscular Volume 97 FL (80-99) Mean Corpuscular Hemoglobin 33.2 PG (27.0-31.0) H Mean Corpuscular Hemoglobin Concent 34.3 G/DL (32.0-36.0) Red Cell Distribution Width 11.5 % (11.6-14.8) L Platelet Count 353 K/UL (150-450) Mean Platelet Volume 5.1 FL (6.5-10.1) L Neutrophils (%) (Auto) 74.0 % (45.0-75.0) Lymphocytes (%) (Auto) 16.2 % (20.0-45.0) L Monocytes (%) (Auto) 8.7 % (1.0-10.0) Eosinophils (%) (Auto) 0.0 % (0.0-3.0) Basophils (%) (Auto) 1.2 % (0.0-2.0) Prothrombin Time 15.4 SEC (9.30-11.50) H Prothromb Time International Ratio 1.5 (0.9-1.1) H Sodium Level 142 MMOL/L (136-145) Potassium Level 3.4 MMOL/L (3.5-5.1) L Chloride Level 108 MMOL/L (98-107) H Carbon Dioxide Level 25 MMOL/L (21-32) Anion Gap 9 mmol/L (5-15) Blood Urea Nitrogen 13 mg/dL (7-18) Creatinine 0.9 MG/DL (0.55-1.30) Estimat Glomerular Filtration Rate mL/min (>60) Glucose Level 140 MG/DL (74-106) H Calcium Level 8.4 MG/DL (8.5-10.1) L Plan Problems: (1) Cecum mass Assessment & Plan: This 89-year-old female with recently identified large cecal mass. Surgery called to evaluate. Discussed case with GI in detail. Patient is not obstructed and asymptomatic from the mass. Interval development of masses compared to prior imaging. Patient is planned for colonoscopy for evaluation of mass. Currently on coagulation hypercoagulable Will await colonoscopy results when able to perform after coagulopathy resolved No acute surgical intervention planned patient is nonobstructed and fairly asymptomatic from this recently identified cecal mass We will need to have a long discussion with patient's family regards to care plan and goals of care given her age and overall condition Okay for diet from surgical standpoint otherwise We will follow with recommendations thank you for let me participate in patient' s care ABDOMEN: Liver: Unremarkable. No mass. Gallbladder and bile ducts: Unremarkable. No calcified stones. No ductal dilation. Pancreas: Unremarkable. No mass. No ductal dilation. Spleen: Unremarkable. No splenomegaly. Adrenals: Unremarkable. No mass. Kidneys and ureters: Unremarkable. No solid mass. No hydronephrosis. Stomach and bowel: A 7.2 x 6.3 x 7.2 cm intraluminal mass in the cecum as developed and is associated with mild wall thickening of the terminal ileum. Scattered colonic diverticuli are present. Large hiatal hernia as increased in the interval configuration of the stomach is at risk for an organoaxial volvulus. No distention suspicious for bowel obstruction is evident. PELVIS: Appendix: The appendix is not well seen. Bladder: Unremarkable. No mass. Reproductive: Unremarkable as visualized. ABDOMEN and PELVIS: Intraperitoneal space: Unremarkable. No free air. No significant fluid collection. Bones/joints: The bones are demineralized and again show lumbar spinal levoscoliosis. No acute or aggressive-appearing osseous lesions are identified. Vertebroplasty at L5 is again identified. No dislocation. Soft tissues: Unremarkable. Vasculature: An IVC filter is present. Extensive atherosclerotic calcifications of an tortuous but normal caliber abdominal aorta. No abdominal aortic aneurysm. Lymph nodes: Unremarkable. No enlarged lymph nodes. IMPRESSION: Interval development of a large cecal mass likely explains the abnormal finding on recent renal ultrasound. This is of concern for a primary colonic malignancy with no findings currently suspicious for advanced extracolonic spread or distant metastatic disease. Shlomo Valenzuela Sep 28, 2019 14:48
--- NOTE | 2019-09-28 15:34 | NUR ---
HAND-OFF: Report given to Shirley Villa RN.
[2019-09-28 16:00] VITALS: BP 120/78
--- NOTE | 2019-09-28 18:45 | General Progress Note ---
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 Neuroendocrine, ? 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 - h/o colon polyps - h/o diverticulosis - UTI/Sepsis Recommendations - GI prep - Coumadin on hold --> IV hep (hold at [facility]) - reverse anticoagulation - colonoscopy - abx - monitor labs Subjective Allergies: Coded Allergies: CLINDAMYCIN (Verified Allergy, Unknown, 10/15/11) PENICILLINS (Verified Allergy, Unknown, 10/15/11) SULFA (SULFONAMIDE ANTIBIOTICS) (Verified Allergy, Unknown, 10/15/11) Subjective Above noted (+) BM d/w RN patient refusing golytely - changed to Miralax Objective Last 24 Hour Vital Signs Date Time Temp Pulse Resp B/P (MAP) Pulse Ox O2 Delivery O2 Flow Rate FiO2 09/28/19 16:00 98.7 93 20 120/78 (92) 96 09/28/19 16:00 83 09/28/19 16:00 Room Air 09/28/19 12:00 98.4 101 20 143/87 (105) 95 09/28/19 12:00 Room Air 09/28/19 12:00 97 09/28/19 08:00 Room Air 09/28/19 08:00 97.6 95 20 126/73 (90) 95 09/28/19 08:00 107 09/28/19 04:00 Room Air 09/28/19 04:00 97.6 95 20 126/76 (93) 99 09/28/19 04:00 89 09/28/19 00:00 98.0 87 21 128/57 (80) 99 09/28/19 00:00 Room Air 09/28/19 00:00 92 09/27/19 20:00 96 09/27/19 20:00 97.6 96 20 126/68 (87) 97 09/27/19 20:00 Room Air Intake and Output 09/27/19 09/28/19 19:00 07:00 Intake Total 1174.823 ml 532.637 ml Output Total 300 ml Balance 1174.823 ml 232.637 ml Intake Oral 240 ml IV Total 934.823 ml 532.637 ml Output Urine Total 300 ml # Voids 3 # Bowel Movements 7 4 Laboratory Tests 09/27/19 23:40: Activated Partial Thromboplast Time 89H 09/28/19 04:55: Activated Partial Thromboplast Time 56H, White Blood Count 7.4, Red Blood Count 3.16L, Hemoglobin 10.5L, Hematocrit 30.5L, Mean Corpuscular Volume 97, Mean Corpuscular Hemoglobin 33.2H, Mean Corpuscular Hemoglobin Concent 34.3, Red Cell Distribution Width 11.5L, Platelet Count 353, Mean Platelet Volume 5.1L, Neutrophils (%) (Auto) 74.0, Lymphocytes (%) (Auto) 16.2L, Monocytes (%) (Auto) 8.7, Eosinophils (%) (Auto) 0.0, Basophils (%) (Auto) 1.2, Prothrombin Time 15.4H, Prothromb Time International Ratio 1.5H, Sodium Level 142, Potassium Level 3.4L, Chloride Level 108H, Carbon Dioxide Level 25, Anion Gap 9, Blood Urea Nitrogen 13, Creatinine 0.9, Estimat Glomerular Filtration Rate , Glucose Level 140H, Calcium Level 8.4L 09/28/19 13:10: Activated Partial Thromboplast Time 49H Height (Feet): 5 Height (Inches): 3.00 Weight (Pounds): 148 Objective WDWN NCAT supple CTA RRR Abd soft ND NT no edema Colby Galindo MD Sep 28, 2019 18:45
--- NOTE | 2019-09-28 19:10 | NUR ---
NURSE NOTES: Pt report received from Malik Garner DAY SHIFT RN SDU. pt remains stable. pt is alert and oriented times 2, able to respond to commands. pt is on Room air, able to sat at 100%, no acute resp distress noted. pt is on cardiac rehab nurse showing NSR, no signs symptoms of cardiac distress noted. bed low, locked, armed, side rails up times 3, call light within reach. will follow plan of care.
--- NOTE | 2019-09-28 19:11 | General Progress Note ---
Assessment/Plan Status: stable, fever, hypovolemia Assessment/Plan: 1) Acute pyelonephritis due to E coli resistent to Levaquin 2) R colon mass, R/O neuroendocrine tumor vs adeno CA 3) Euvolemic Plan: Will need colonoscopy IV Ertapenem per ID Continue Heparin drip for now, D/C post midnight Subjective Allergies: Coded Allergies: CLINDAMYCIN (Verified Allergy, Unknown, 10/15/11) PENICILLINS (Verified Allergy, Unknown, 10/15/11) SULFA (SULFONAMIDE ANTIBIOTICS) (Verified Allergy, Unknown, 10/15/11) Subjective She is doing ok, supposed to have colonoscopy tomorrow. Objective Last 24 Hour Vital Signs Date Time Temp Pulse Resp B/P (MAP) Pulse Ox O2 Delivery O2 Flow Rate FiO2 09/28/19 16:00 98.7 93 20 120/78 (92) 96 09/28/19 16:00 83 09/28/19 16:00 Room Air 09/28/19 12:00 98.4 101 20 143/87 (105) 95 09/28/19 12:00 Room Air 09/28/19 12:00 97 09/28/19 08:00 Room Air 09/28/19 08:00 97.6 95 20 126/73 (90) 95 09/28/19 08:00 107 09/28/19 04:00 Room Air 09/28/19 04:00 97.6 95 20 126/76 (93) 99 09/28/19 04:00 89 09/28/19 00:00 98.0 87 21 128/57 (80) 99 09/28/19 00:00 Room Air 09/28/19 00:00 92 09/27/19 20:00 96 09/27/19 20:00 97.6 96 20 126/68 (87) 97 09/27/19 20:00 Room Air Intake and Output 09/27/19 09/28/19 19:00 07:00 Intake Total 1174.823 ml 532.637 ml Output Total 300 ml Balance 1174.823 ml 232.637 ml Intake Oral 240 ml IV Total 934.823 ml 532.637 ml Output Urine Total 300 ml # Voids 3 # Bowel Movements 7 4 Laboratory Tests 09/27/19 23:40: Activated Partial Thromboplast Time 89H 09/28/19 04:55: Activated Partial Thromboplast Time 56H, White Blood Count 7.4, Red Blood Count 3.16L, Hemoglobin 10.5L, Hematocrit 30.5L, Mean Corpuscular Volume 97, Mean Corpuscular Hemoglobin 33.2H, Mean Corpuscular Hemoglobin Concent 34.3, Red Cell Distribution Width 11.5L, Platelet Count 353, Mean Platelet Volume 5.1L, Neutrophils (%) (Auto) 74.0, Lymphocytes (%) (Auto) 16.2L, Monocytes (%) (Auto) 8.7, Eosinophils (%) (Auto) 0.0, Basophils (%) (Auto) 1.2, Prothrombin Time 15.4H, Prothromb Time International Ratio 1.5H, Sodium Level 142, Potassium Level 3.4L, Chloride Level 108H, Carbon Dioxide Level 25, Anion Gap 9, Blood Urea Nitrogen 13, Creatinine 0.9, Estimat Glomerular Filtration Rate , Glucose Level 140H, Calcium Level 8.4L 09/28/19 13:10: Activated Partial Thromboplast Time 49H Height (Feet): 5 Height (Inches): 3.00 Weight (Pounds): 148 General Appearance: WD/WN, no apparent distress EENT: PERRL/EOMI Neck: non-tender, normal alignment Cardiovascular: normal peripheral pulses, normal rate Respiratory/Chest: lungs clear Abdomen: normal bowel sounds, non tender Neurologic: lead engineer II-XII grossly normal, no motor/sensory deficits Kj Chang MD Sep 28, 2019 19:11
--- NOTE | 2019-09-28 19:30 | NUR ---
HAND-OFF: Report given to ELIA Ellis.
[2019-09-28 20:00] VITALS: BP 147/81
--- NOTE | 2019-09-28 21:47 | NUR ---
NURSE NOTES: spoke to pharmacist Umer. he reviewed current resulted PTT and hep drip rate. Pharmacist stated to stop heparin now. heparin is stopped as of now.
--- NOTE | 2019-09-28 21:53 | NUR ---
NURSE NOTES: Spoke to MD Bernardo Odom reported APPT greater than 150 and that pts Hep drip is stopped per Pharmacist Umer request. is aware of lab (APPT lab) and stated that order of the stopped hep drip is Ok. stated to go ahead and stop the heparin drip.
--- NOTE | 2019-09-28 22:16 | NUR ---
NURSE NOTES: Called JONI PERKINS to obtain Telephone consent for Coloscopy with Possible biopsy, polypectomy, hemostasis, dilation, and submucosal injection. (refer to MD GALINDO consent order.) JONI PERKINS gave telephone consent and has previously spoke to MD Galindo about procedure. ELIA Sánchez co signed and witnessed telephone order consent. consent signed, placed in pts chart.
[2019-09-29] VITALS (10 sets, daily range): BP systolic 118–159; BP diastolic 65–105
[2019-09-29] MEDS: D5NS 1,000 ML IV SCH ×2 (02:50→20:31)
[2019-09-29 05:42] LABS: BASOPHILS % (AUTO) 1.2 % (0.0-2.0); HEMATOCRIT 30.7 % (37.0-47.0); HEMOGLOBIN 10.9 G/DL (12.0-16.0); LYMPHOCYTES % (AUTO) 18.5 % (20.0-45.0); MEAN CORPUSCULAR VOLUME 97 FL (80-99); MONOCYTES % (AUTO) 10.6 % (1.0-10.0); NEUTROPHILS % (AUTO) 69.7 % (45.0-75.0); PLATELET COUNT 354 K/UL (150-450); RED BLOOD COUNT 3.17 M/UL (4.20-5.40); RED CELL DISTRIBUTION WIDTH 11.7 % (11.6-14.8); WHITE BLOOD COUNT 7.3 K/UL (4.8-10.8)
[2019-09-29 05:50] LABS: ANION GAP 10 mmol/L (5-15); BLOOD UREA NITROGEN 9 mg/dL (7-18); CALCIUM 7.9 MG/DL (8.5-10.1); CARBON DIOXIDE 24 MMOL/L (21-32); CHLORIDE 109 MMOL/L (98-107); CREATININE 0.9 MG/DL (0.55-1.30); POTASSIUM 3.4 MMOL/L (3.5-5.1); SODIUM 143 MMOL/L (136-145)
--- NOTE | 2019-09-29 06:56 | NUR ---
HAND-OFF: Report given to DELVIS GARCIA.
--- NOTE | 2019-09-29 07:30 | NUR ---
HAND-OFF: Report given to ROBERTO RODRIGEZ. Pt remains stable.
--- NOTE | 2019-09-29 07:56 | Anethesia Preoperative Eval ---
Anesthesia Pre-op PMH/ROS General Date of Evaluation: Sep 29, 2019 Time of Evaluation: 07:50 Anesthesiologist: Morena ASA Score: ASA 4 Mallampati Score Class I : Soft palate, uvula, fauces, pillars visible Class II: Soft palate, uvula, fauces visible Class III: Soft palate, base of uvula visible Class IV: Only hard plate visible Mallampati Classification: Class II Surgeon: Fabiano Diagnosis: Cecal mass Surgical Procedure: Colonoscopy Anesthesia History: none Family History: no anesthesia problems Allergies: Coded Allergies: CLINDAMYCIN (Verified Allergy, Unknown, 10/15/11) PENICILLINS (Verified Allergy, Unknown, 10/15/11) SULFA (SULFONAMIDE ANTIBIOTICS) (Verified Allergy, Unknown, 10/15/11) Medications: see eMAR Patient NPO?: Yes Past Medical History Cardiovascular: Reports: HTN; Denies: CAD, OR, valve dz, arrhythmia, other Pulmonary: Denies: asthma, COPD, AISHA, other Gastrointestinal/Genitourinary: Reports: GERD, other - recurrent abdominal pain ; Denies: CRI, ESRD Neurologic/Psychiatric: Reports: dementia, depression/anxiety; Denies: CVA, TIA, other Endocrine: Reports: DM, hypothyroidism; Denies: steroids, other HEENT: Reports: cataract (L), cataract (R) - s/p Sx Hematology/Immune: Reports: anemia - mild, DVT - h/o, other - hypercoagualative state Musculoskeletal/Integumentary: Reports: OA; Denies: RA, DJD, DDD, edema, other PMH Narrative: as above PSxH Narrative: Knee replacement, cataract, Anesthesia Pre-op Phys. Exam Physician Exam Last Vital Signs Date Time Temp Pulse Resp B/P (MAP) Pulse Ox O2 Delivery O2 Flow Rate FiO2 09/29/19 04:00 97.6 89 23 134/77 (96) 98 09/29/19 04:00 Room Air Constitutional: NAD Neurologic: other - unable to obtaine Cardiovascular: RRR, no M/R/G Respiratory: CTA Gastrointestinal: S/NT/ND Airway Exam Mallampati Score: Class II MO: limited Neck: stiff ROM: limited Teeth: missing Dentures: no upper, no lower Anesthesia Pre-op A/P Labs Hematology Test 09/29/19 04:10 White Blood Count 7.3 K/UL (4.8-10.8) Red Blood Count 3.17 M/UL (4.20-5.40) L Hemoglobin 10.9 G/DL (12.0-16.0) L Hematocrit 30.7 % (37.0-47.0) L Mean Corpuscular Volume 97 FL (80-99) Mean Corpuscular Hemoglobin 34.3 PG (27.0-31.0) H Mean Corpuscular Hemoglobin Concent 35.4 G/DL (32.0-36.0) Red Cell Distribution Width 11.7 % (11.6-14.8) Platelet Count 354 K/UL (150-450) Mean Platelet Volume 5.2 FL (6.5-10.1) L Neutrophils (%) (Auto) 69.7 % (45.0-75.0) Lymphocytes (%) (Auto) 18.5 % (20.0-45.0) L Monocytes (%) (Auto) 10.6 % (1.0-10.0) H Eosinophils (%) (Auto) 0.0 % (0.0-3.0) Basophils (%) (Auto) 1.2 % (0.0-2.0) Coagulation Test 09/28/19 13:10 09/28/19 20:12 Activated Partial Thromboplast Time 49 SEC (23-33) H > 150 SEC (23-33) *H Chemistry Test 09/29/19 04:10 Sodium Level 143 MMOL/L (136-145) Potassium Level 3.4 MMOL/L (3.5-5.1) L Chloride Level 109 MMOL/L (98-107) H Carbon Dioxide Level 24 MMOL/L (21-32) Anion Gap 10 mmol/L (5-15) Blood Urea Nitrogen 9 mg/dL (7-18) Creatinine 0.9 MG/DL (0.55-1.30) Estimat Glomerular Filtration Rate mL/min (>60) Glucose Level 122 MG/DL (74-106) H Calcium Level 7.9 MG/DL (8.5-10.1) L Magnesium Level 2.1 MG/DL (1.8-2.4) Studies Pre-op Studies: EKG - SR Risk Assessment & Plan Assessment: ASA 4 Plan: MAC Status Change Before Surgery: No Morena,Geraldo MD Sep 29, 2019 07:56
[2019-09-29] MEDS ORDERED: NS 275ml ONE (07:57)
[2019-09-29] MEDS ORDERED: Tubing IV Secondary IV ONE (07:57)
[2019-09-29] MEDS ORDERED: D5NS 1000ml IV ONE ×2 (07:57→08:03)
[2019-09-29] MEDS ORDERED: Propofol 200mg/20ml IV ONE (08:00)
[2019-09-29] MEDS ORDERED: fentaNYL 100 mcg/2 mL IV PRN (08:00)
[2019-09-29] MEDS: Meropenem 1 GM in NS 55 ML IVPB SCH ×2 (08:00→20:30)
[2019-09-29] MEDS ORDERED: fentaNYL 100 mcg/2 mL IV ONE (08:00)
[2019-09-29] MEDS ORDERED: NS 500ML IVPB ONE (08:05)
--- NOTE | 2019-09-29 08:05 | NUR ---
NURSE NOTES: Patient out of the unit. Transported patient to GI Lab, for colonoscopy. Report given to ELIA Yeboah.
--- NOTE | 2019-09-29 08:09 | General Progress Note ---
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 Neuroendocrine, ? 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 - h/o colon polyps - h/o diverticulosis - UTI/Sepsis - hypokalemia Recommendations - NPO - replace K - Anticoagulation on hold - colonoscopy Today - abx - monitor labs Subjective Allergies: Coded Allergies: CLINDAMYCIN (Verified Allergy, Unknown, 10/15/11) PENICILLINS (Verified Allergy, Unknown, 10/15/11) SULFA (SULFONAMIDE ANTIBIOTICS) (Verified Allergy, Unknown, 10/15/11) Subjective Above noted seen in GI lab off of heparin Objective Last 24 Hour Vital Signs Date Time Temp Pulse Resp B/P (MAP) Pulse Ox O2 Delivery O2 Flow Rate FiO2 09/29/19 04:00 97.6 89 23 134/77 (96) 98 09/29/19 04:00 84 09/29/19 04:00 Room Air 09/29/19 00:00 89 09/29/19 00:00 Room Air 09/29/19 00:00 97.7 60 22 140/80 (100) 97 09/28/19 20:00 97.2 100 24 147/81 (103) 97 09/28/19 20:00 93 09/28/19 20:00 Room Air 09/28/19 16:00 98.7 93 20 120/78 (92) 96 09/28/19 16:00 83 09/28/19 16:00 Room Air 09/28/19 12:00 98.4 101 20 143/87 (105) 95 09/28/19 12:00 Room Air 09/28/19 12:00 97 Intake and Output 09/28/19 09/29/19 19:00 07:00 Intake Total 1339.526 ml 753.008 ml Output Total 400 ml Balance 1339.526 ml 353.008 ml Intake Oral 800 ml IV Total 539.526 ml 753.008 ml Output Urine Total 400 ml # Voids 5 # Bowel Movements 11 1 Laboratory Tests 09/28/19 13:10: Activated Partial Thromboplast Time 49H 09/28/19 20:12: Activated Partial Thromboplast Time > 150*H 09/29/19 04:10: White Blood Count 7.3, Red Blood Count 3.17L, Hemoglobin 10.9L, Hematocrit 30.7L , Mean Corpuscular Volume 97, Mean Corpuscular Hemoglobin 34.3H, Mean Corpuscular Hemoglobin Concent 35.4, Red Cell Distribution Width 11.7, Platelet Count 354, Mean Platelet Volume 5.2L, Neutrophils (%) (Auto) 69.7, Lymphocytes ( %) (Auto) 18.5L, Monocytes (%) (Auto) 10.6H, Eosinophils (%) (Auto) 0.0, Basophils (%) (Auto) 1.2, Sodium Level 143, Potassium Level 3.4L, Chloride Level 109H, Carbon Dioxide Level 24, Anion Gap 10, Blood Urea Nitrogen 9, Creatinine 0.9, Estimat Glomerular Filtration Rate , Glucose Level 122H, Calcium Level 7.9L, Magnesium Level 2.1 Height (Feet): 5 Height (Inches): 5.00 Weight (Pounds): 148 Objective WDWN NCAT supple CTA RRR Abd soft ND NT no edema Colby Galindo MD Sep 29, 2019 08:09
--- NOTE | 2019-09-29 08:09 | Pre-Procedure Note/Attestation ---
Pre-Procedure Note/Attestation Complete Prior to Procedure Planned Procedure: not applicable Procedure Narrative: colon Indications for Procedure Pre-Operative Diagnosis: abnormal CT Attestation I attest that I discussed the nature of the procedure; its benefits; risks and complications; and alternatives (and the risks and benefits of such alternatives ), prior to the procedure, with the patient (or the patient's legal automobile sales representative). I attest that, if there was a reasonable possibility of needing a blood transfusion, the patient (or the patient's legal automobile sales representative) was given the [facility] standardized written summary, pursuant to the [place] Blood Safety Act ([place] Health and Safety Code # 1645, as amended). I attest that I re-evaluated the patient just prior to the surgery and that there has been no change in the patient's H&P, except as documented below: Colby Galindo MD Sep 29, 2019 08:09
--- NOTE | 2019-09-29 08:57 | Endoscopy Procedure Note ---
Endoscopy Procedure Note General Indication for Procedure: colon mass Procedures Performed: colonoscopy Operative Findings/Diagnosis: Large mass, 70-80% circumf, 70-80% obstructive, ulcerated ,,DIm desc po, tc Specimen: yes Pt Tolerated Procedure Well: Yes Estimated Blood Loss: none Anesthesia Anesthesiologist: Vance Anesthesia: MAC Medications Medication Given: see anesthesia record Inserted Devices Implant(s) used?: No GI Core Measures 50 yrs or older w/o bx or poly: Not Applicable 10yrs. F/U recommended: Not Applicable Colby Galindo MD Sep 29, 2019 08:57
--- NOTE | 2019-09-29 09:02 | Immediate Post-Op Evaluation ---
Immediate Post-Op Evalulation Immediate Post-Op Evalulation Procedure: Colonoscopy Date of Evaluation: Sep 29, 2019 Time of Evaluation: 09:01 IV Fluids: 200 Blood Products: none Estimated Blood Loss: none Urinary Output: none Blood Pressure Systolic: 124 Blood Pressure Diastolic: 56 Pulse Rate: 78 Respiratory Rate: 20 O2 Sat by Pulse Oximetry: 98 Temperature (Fahrenheit): 97.7 Pain Score (1-10): 1 Nausea: No Vomiting: No Complications none Patient Status: awake, patent, none Hydration Status: adequate Geraldo Berg MD Sep 29, 2019 09:02
--- NOTE | 2019-09-29 09:03 | Brief Operative Note ---
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
--- NOTE | 2019-09-29 10:00 | 48 Hour Post Anesthesia Eval ---
Post Anesthesia Evaluation Procedure: Colonoscopy Date of Evaluation: Sep 29, 2019 Time of Evaluation: 09:59 Blood Pressure Systolic: 124 0: 58 Pulse Rate: 76 Respiratory Rate: 20 Temperature (Fahrenheit): 97.6 O2 Sat by Pulse Oximetry: 98 Airway: patent Nausea: No Vomiting: No Pain Intensity: 1 Hydration Status: adequate Cardiopulmonary Status: stable Mental Status/LOC: patient returned to baseline Follow-up Care/Observations: n/a Post-Anesthesia Complications: none Follow-up care needed: N/A Geraldo Breg MD Sep 29, 2019 10:00
--- NOTE | 2019-09-29 12:05 | NUR ---
NURSE NOTES: Dr. Galindo called. With orders to resume diet, reggie kesslerher. Start heparin drip per pharmacy, no bolus dose.
--- NOTE | 2019-09-29 12:21 | Surgery Progress Note ---
Surgery Progress Note Subjective Additional Comments no acute events scope today frozen section with adeno ca Objective Last 24 Hour Vital Signs Date Time Temp Pulse Resp B/P (MAP) Pulse Ox O2 Delivery O2 Flow Rate FiO2 09/29/19 10:00 76 20 98 09/29/19 09:10 98.0 86 17 134/82 96 Room Air 09/29/19 09:05 89 21 145/87 94 Room Air 09/29/19 09:02 78 20 98 09/29/19 09:00 92 20 118/76 98 Nasal Cannula 3 09/29/19 08:55 98.3 99 18 129/82 96 Nasal Cannula 3 09/29/19 08:00 Room Air 09/29/19 07:57 94 09/29/19 07:55 97.9 92 19 135/105 (115) 97 09/29/19 04:00 97.6 89 23 134/77 (96) 98 09/29/19 04:00 84 09/29/19 04:00 Room Air 09/29/19 00:00 89 09/29/19 00:00 Room Air 09/29/19 00:00 97.7 60 22 140/80 (100) 97 09/28/19 20:00 97.2 100 24 147/81 (103) 97 09/28/19 20:00 93 09/28/19 20:00 Room Air 09/28/19 16:00 98.7 93 20 120/78 (92) 96 09/28/19 16:00 83 09/28/19 16:00 Room Air I&O Intake and Output 09/28/19 09/29/19 18:59 06:59 Intake Total 1281.526 ml 813.008 ml Output Total 400 ml Balance 1281.526 ml 413.008 ml Intake Oral 800 ml IV Total 481.526 ml 813.008 ml Output Urine Total 400 ml # Voids 5 # Bowel Movements 11 1 Cardiovascular: RSR Respiratory: clear Abdomen: soft, non-tender, present bowel sounds, non-distended Extremities: no edema, no tenderness, no cyanosis Laboratory Tests Test 09/28/19 13:10 09/28/19 20:12 09/29/19 04:10 Activated Partial Thromboplast Time 49 SEC (23-33) H > 150 SEC (23-33) *H White Blood Count 7.3 K/UL (4.8-10.8) Red Blood Count 3.17 M/UL (4.20-5.40) L Hemoglobin 10.9 G/DL (12.0-16.0) L Hematocrit 30.7 % (37.0-47.0) L Mean Corpuscular Volume 97 FL (80-99) Mean Corpuscular Hemoglobin 34.3 PG (27.0-31.0) H Mean Corpuscular Hemoglobin Concent 35.4 G/DL (32.0-36.0) Red Cell Distribution Width 11.7 % (11.6-14.8) Platelet Count 354 K/UL (150-450) Mean Platelet Volume 5.2 FL (6.5-10.1) L Neutrophils (%) (Auto) 69.7 % (45.0-75.0) Lymphocytes (%) (Auto) 18.5 % (20.0-45.0) L Monocytes (%) (Auto) 10.6 % (1.0-10.0) H Eosinophils (%) (Auto) 0.0 % (0.0-3.0) Basophils (%) (Auto) 1.2 % (0.0-2.0) Sodium Level 143 MMOL/L (136-145) Potassium Level 3.4 MMOL/L (3.5-5.1) L Chloride Level 109 MMOL/L (98-107) H Carbon Dioxide Level 24 MMOL/L (21-32) Anion Gap 10 mmol/L (5-15) Blood Urea Nitrogen 9 mg/dL (7-18) Creatinine 0.9 MG/DL (0.55-1.30) Estimat Glomerular Filtration Rate mL/min (>60) Glucose Level 122 MG/DL (74-106) H Calcium Level 7.9 MG/DL (8.5-10.1) L Magnesium Level 2.1 MG/DL (1.8-2.4) Plan Problems: (1) Cecum mass Assessment & Plan: This 89-year-old female with recently identified large cecal mass. Surgery called to evaluate. Discussed case with GI in detail. Patient is not obstructed and asymptomatic from the mass. Interval development of masses compared to prior imaging. 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 given non obstructive tumor can d/c and schedule with surgeon at [facility] thank you Okay for diet from surgical standpoint otherwise We will follow with recommendations thank you for let me participate in patient' s care ABDOMEN: Liver: Unremarkable. No mass. Gallbladder and bile ducts: Unremarkable. No calcified stones. No ductal dilation. Pancreas: Unremarkable. No mass. No ductal dilation. Spleen: Unremarkable. No splenomegaly. Adrenals: Unremarkable. No mass. Kidneys and ureters: Unremarkable. No solid mass. No hydronephrosis. Stomach and bowel: A 7.2 x 6.3 x 7.2 cm intraluminal mass in the cecum as developed and is associated with mild wall thickening of the terminal ileum. Scattered colonic diverticuli are present. Large hiatal hernia as increased in the interval configuration of the stomach is at risk for an organoaxial volvulus. No distention suspicious for bowel obstruction is evident. PELVIS: Appendix: The appendix is not well seen. Bladder: Unremarkable. No mass. Reproductive: Unremarkable as visualized. ABDOMEN and PELVIS: Intraperitoneal space: Unremarkable. No free air. No significant fluid collection. Bones/joints: The bones are demineralized and again show lumbar spinal levoscoliosis. No acute or aggressive-appearing osseous lesions are identified. Vertebroplasty at L5 is again identified. No dislocation. Soft tissues: Unremarkable. Vasculature: An IVC filter is present. Extensive atherosclerotic calcifications of an tortuous but normal caliber abdominal aorta. No abdominal aortic aneurysm. Lymph nodes: Unremarkable. No enlarged lymph nodes. IMPRESSION: Interval development of a large cecal mass likely explains the abnormal finding on recent renal ultrasound. This is of concern for a primary colonic malignancy with no findings currently suspicious for advanced extracolonic spread or distant metastatic disease. Shlomo Valenzuela Sep 29, 2019 12:21
[2019-09-29] MEDS ORDERED: Heparin 5000 units/ml inj IV SCH ×2 (13:30→22:15)
[2019-09-29] MEDS ORDERED: Heparin 25,000u/D5W 500ml 500 ML IV SCH ×2 (13:30→22:15)
--- NOTE | 2019-09-29 13:49 | NUR ---
MEDICAL PROGRAM SPECIALISTFLORIST HELPER SI: CECAL MASS/S/P COLONOSCOPY T. 98.0 HR 86 RR 17 B/P 145/87 RA 98% K 3.4 IS: KCL IV HEPARIN GTT MEROPENEM IV IVF NS @ 100ML/HR STEP DOWN STATUS
--- NOTE | 2019-09-29 14:48 | Infectious Diseases Prog Note ---
Assessment/Plan Problems: (1) Acute pyelonephritis Assessment & Plan: with MDR E coli source could be due to ureter obstruction from cecal mass , continue meropenem to cover for bacteremia too for two weeks , with contact isolation for now (2) Severe sepsis Assessment & Plan: with ESBL producing E coli , source ? cecal mass with possible translocation of the bacteria to the blood . continue meropenem for two weeks . repeated blood culture on 09/25 is NTD which confirm clearance . EOT 10/09/19 (3) Cecum mass Assessment & Plan: rule out malignancy , poor prognosis , with advanced age , had colonoscopy today , pending report . GI and surgery are following (4) Hypercoagulable state Assessment & Plan: off Coumadin due to colonoscopy procedure Assessment/Plan D/W daughter at bedside Subjective Constitutional: Reports: no symptoms HEENT: Reports: no symptoms Respiratory: Reports: no symptoms Breasts: Reports: no symptoms Cardiovascular: Reports: no symptoms Gastrointestinal/Abdominal: Reports: no symptoms Genitourinary: Reports: no symptoms Neurologic: Reports: confusion Psychiatric: Reports: no symptoms Skin: Reports: no symptoms Endocrine: Reports: no symptoms Hematologic: Reports: no symptoms Musculoskeletal: Reports: no symptoms Allergies: Coded Allergies: CLINDAMYCIN (Verified Allergy, Unknown, 10/15/11) PENICILLINS (Verified Allergy, Unknown, 10/15/11) SULFA (SULFONAMIDE ANTIBIOTICS) (Verified Allergy, Unknown, 10/15/11) Subjective she was alert and responsive , has frequent bowel movements due to colonoscopy preparations , denied any fever or pain , no nausea or vomiting Objective Vital Signs Last 24 Hour Vital Signs Date Time Temp Pulse Resp B/P (MAP) Pulse Ox O2 Delivery O2 Flow Rate FiO2 09/29/19 12:00 98.6 84 19 159/65 (96) 97 09/29/19 12:00 Room Air 09/29/19 11:51 87 09/29/19 10:00 76 20 98 09/29/19 09:10 98.0 86 17 134/82 96 Room Air 09/29/19 09:05 89 21 145/87 94 Room Air 09/29/19 09:02 78 20 98 09/29/19 09:00 92 20 118/76 98 Nasal Cannula 3 09/29/19 08:55 98.3 99 18 129/82 96 Nasal Cannula 3 09/29/19 08:00 Room Air 09/29/19 07:57 94 09/29/19 07:55 97.9 92 19 135/105 (115) 97 09/29/19 04:00 97.6 89 23 134/77 (96) 98 09/29/19 04:00 84 09/29/19 04:00 Room Air 09/29/19 00:00 89 09/29/19 00:00 Room Air 09/29/19 00:00 97.7 60 22 140/80 (100) 97 09/28/19 20:00 97.2 100 24 147/81 (103) 97 09/28/19 20:00 93 09/28/19 20:00 Room Air 09/28/19 16:00 98.7 93 20 120/78 (92) 96 09/28/19 16:00 83 09/28/19 16:00 Room Air Height (Feet): 5 Height (Inches): 5.00 Weight (Pounds): 148 General Appearance: WD/WN, no acute distress HEENT: normocephalic, atraumatic, anicteric, mucous membranes moist, PERRL Respiratory/Chest: chest wall non-tender, lungs clear, normal breath sounds, no respiratory distress, no accessory muscle use Cardiovascular: normal peripheral pulses, normal rate, regular rhythm, no gallop/murmur, no JVD Abdomen: normal bowel sounds, soft, non tender, no organomegaly, non distended , no mass, no scars Extremities: no cyanosis, no clubbing Skin: no rash, no lesions, no ulcers Neurologic/Psychiatric: alert, responsive Lymphatic: no neck adenopathy, no groin adenopathy Musculoskeletal: normal muscle bulk, no effusion Laboratory Tests Test 09/28/19 20:12 09/29/19 04:10 09/29/19 13:50 Activated Partial Thromboplast Time > 150 SEC (23-33) *H Pending White Blood Count 7.3 K/UL (4.8-10.8) Red Blood Count 3.17 M/UL (4.20-5.40) L Hemoglobin 10.9 G/DL (12.0-16.0) L Hematocrit 30.7 % (37.0-47.0) L Mean Corpuscular Volume 97 FL (80-99) Mean Corpuscular Hemoglobin 34.3 PG (27.0-31.0) H Mean Corpuscular Hemoglobin Concent 35.4 G/DL (32.0-36.0) Red Cell Distribution Width 11.7 % (11.6-14.8) Platelet Count 354 K/UL (150-450) Mean Platelet Volume 5.2 FL (6.5-10.1) L Neutrophils (%) (Auto) 69.7 % (45.0-75.0) Lymphocytes (%) (Auto) 18.5 % (20.0-45.0) L Monocytes (%) (Auto) 10.6 % (1.0-10.0) H Eosinophils (%) (Auto) 0.0 % (0.0-3.0) Basophils (%) (Auto) 1.2 % (0.0-2.0) Sodium Level 143 MMOL/L (136-145) Potassium Level 3.4 MMOL/L (3.5-5.1) L Chloride Level 109 MMOL/L (98-107) H Carbon Dioxide Level 24 MMOL/L (21-32) Anion Gap 10 mmol/L (5-15) Blood Urea Nitrogen 9 mg/dL (7-18) Creatinine 0.9 MG/DL (0.55-1.30) Estimat Glomerular Filtration Rate mL/min (>60) Glucose Level 122 MG/DL (74-106) H Calcium Level 7.9 MG/DL (8.5-10.1) L Magnesium Level 2.1 MG/DL (1.8-2.4) Current Medications Medications (Trade) Dose Ordered Sig/Patricia Route PRN Reason Start Time Stop Time Status Last Admin Dose Admin Acetaminophen (Tylenol) 650 mg Q4H PRN ORAL Mild Pain/Temp > 100.5 09/25/19 19:30 10/25/19 19:29 Dextrose (Dextrose 50%) 25 ml Q30M PRN IV Hypoglycemia 09/22/19 20:45 10/22/19 20:44 Dextrose (Dextrose 50%) 50 ml Q30M PRN IV Hypoglycemia 09/22/19 20:45 10/22/19 20:44 Dextrose/Sodium Chloride 1,000 ml @ 60 mls/hr [id number] IV 09/22/19 21:37 10/22/19 21:36 09/29/19 02:50 Heparin Sodium/ Dextrose 500 ml @ 17.484 mls/ hr ADJUST PER PROTOCOL IV 09/29/19 13:30 10/29/19 13:29 09/29/19 13:19 Levothyroxine Sodium (Synthroid) 88 mcg DAILY@0630 ORAL 09/23/19 06:30 10/23/19 06:29 09/29/19 05:50 Meropenem 1 gm/ Sodium Chloride 55 ml @ 110 mls/hr Q12H IVPB 09/23/19 20:00 10/07/19 23:59 09/28/19 20:05 Polyethylene Glycol (Miralax) 17 gm HSPRN PRN ORAL Constipation 09/22/19 20:45 10/22/19 20:44 Potassium Chloride 100 ml @ 100 mls/hr Q1HR IVPB 09/29/19 14:00 09/29/19 15:59 Keily Flores M.D. Sep 29, 2019 14:47
--- NOTE | 2019-09-29 17:00 | NUR ---
NURSE NOTES: Patient's son at bedside.
--- NOTE | 2019-09-29 18:41 | NUR ---
NURSE NOTES: Dr. Chang at bedside.
--- NOTE | 2019-09-29 18:50 | General Progress Note ---
Assessment/Plan Status: stable, fever, hypovolemia Assessment/Plan: 1) Acute pyelonephritis due to E coli resistent to Levaquin 2) R colon mass, R/O neuroendocrine tumor vs adeno CA 3) Euvolemic Plan: Will need colonoscopy IV Merropenem per ID Will start Coumadin while being on heparin drip Subjective Allergies: Coded Allergies: CLINDAMYCIN (Verified Allergy, Unknown, 10/15/11) PENICILLINS (Verified Allergy, Unknown, 10/15/11) SULFA (SULFONAMIDE ANTIBIOTICS) (Verified Allergy, Unknown, 10/15/11) Subjective She is doing ok, no c/p or sob, still on IV ATB, the colonoscopy is compatible with AdenoCA. Objective Last 24 Hour Vital Signs Date Time Temp Pulse Resp B/P (MAP) Pulse Ox O2 Delivery O2 Flow Rate FiO2 09/29/19 16:00 98.6 91 18 131/66 (87) 99 09/29/19 16:00 Room Air 09/29/19 15:26 94 09/29/19 12:00 98.6 84 19 159/65 (96) 97 09/29/19 12:00 Room Air 09/29/19 11:51 87 09/29/19 10:00 76 20 98 09/29/19 09:10 98.0 86 17 134/82 96 Room Air 09/29/19 09:05 89 21 145/87 94 Room Air 09/29/19 09:02 78 20 98 09/29/19 09:00 92 20 118/76 98 Nasal Cannula 3 09/29/19 08:55 98.3 99 18 129/82 96 Nasal Cannula 3 09/29/19 08:00 Room Air 09/29/19 07:57 94 09/29/19 07:55 97.9 92 19 135/105 (115) 97 09/29/19 04:00 97.6 89 23 134/77 (96) 98 09/29/19 04:00 84 09/29/19 04:00 Room Air 09/29/19 00:00 89 09/29/19 00:00 Room Air 09/29/19 00:00 97.7 60 22 140/80 (100) 97 09/28/19 20:00 97.2 100 24 147/81 (103) 97 09/28/19 20:00 93 09/28/19 20:00 Room Air Intake and Output 09/28/19 09/29/19 19:00 07:00 Intake Total 1339.526 ml 813.008 ml Output Total 400 ml Balance 1339.526 ml 413.008 ml Intake Oral 800 ml IV Total 539.526 ml 813.008 ml Output Urine Total 400 ml # Voids 5 # Bowel Movements 11 1 Laboratory Tests 09/28/19 20:12: Activated Partial Thromboplast Time > 150*H 09/29/19 04:10: White Blood Count 7.3, Red Blood Count 3.17L, Hemoglobin 10.9L, Hematocrit 30.7L , Mean Corpuscular Volume 97, Mean Corpuscular Hemoglobin 34.3H, Mean Corpuscular Hemoglobin Concent 35.4, Red Cell Distribution Width 11.7, Platelet Count 354, Mean Platelet Volume 5.2L, Neutrophils (%) (Auto) 69.7, Lymphocytes ( %) (Auto) 18.5L, Monocytes (%) (Auto) 10.6H, Eosinophils (%) (Auto) 0.0, Basophils (%) (Auto) 1.2, Sodium Level 143, Potassium Level 3.4L, Chloride Level 109H, Carbon Dioxide Level 24, Anion Gap 10, Blood Urea Nitrogen 9, Creatinine 0.9, Estimat Glomerular Filtration Rate , Glucose Level 122H, Calcium Level 7.9L, Magnesium Level 2.1 09/29/19 13:50: Activated Partial Thromboplast Time 33 Height (Feet): 5 Height (Inches): 5.00 Weight (Pounds): 148 General Appearance: WD/WN EENT: PERRL/EOMI Neck: non-tender, normal alignment Cardiovascular: normal peripheral pulses, normal rate Respiratory/Chest: chest wall non-tender, lungs clear Abdomen: normal bowel sounds Pelvis: normal external exam Extremities: normal range of motion Kj Chang MD Sep 29, 2019 18:50
--- NOTE | 2019-09-29 19:04 | NUR ---
NURSE NOTES: Pt report received from ELIA Arellano. Pt observed resting in bed. Pt is alert but disoriented and forgetful. Pt is on room air with no s/sx of resp distress noted and an O2 saturation of 98% noted at this time. Pt is on transportation job titles showing NSR, no cardiac distress noted and a HR of 89 noted. Pt remains clean and dry, skin redness noted along abdominal and breast folds, sacral redness noted and bilateral heels noted to be red. Pt educated on skil precautions but continues to need reinforcement. Repositioned patient and floated bilateral heels. L hand 22g IV catheter noted which remains patent, asymptomatic and intact. Heparin is currently infusing at a rate of 13 u/kg/hr as prescribed, ptt scheduled. Will ensure lab work is drawn on time. D5NS currently infusing at 60mL/hr. Pt educated on heparin and s/sx of active bleeding. None noted at this time. Will continue to assess patient. Fall and aspiration precautions observed; Bed remains in lowest position with safety wheels engaged, side rails up times 3, call light within reach and bed alarm activated. Will continue to monitor. Will follow plan of care.
--- NOTE | 2019-09-29 19:18 | NUR ---
HAND-OFF: Report given to Omaira MIR RN. Remains on heparin drip.
--- NOTE | 2019-09-29 19:48 | NUR ---
NURSE NOTES: Spoke with patients daughter regarding PICC line placement. Daughter has additional questions and would like to speak with physician prior to placement. No consent for procedure at this time.
[2019-09-29] MEDS ORDERED: Warfarin Sodium 5mg ORAL SCH (20:00)
--- NOTE | 2019-09-29 22:42 | NUR ---
NURSE NOTES: Assessed patient for s/sx of active bleeding, none noted at this time. Adjusted Heparin drip per protocol to 17u/kg/hr and bolus of 5k units of heparin given per order. Will continue to monitor patient. Pt tolerating care well at this time.
--- NOTE | 2019-09-30 00:12 | NUR ---
HAND-OFF: Report given to ELIA Ansari. Pt remains stable at this time.
[2019-09-30] MEDS ORDERED: Heparin 5000 units/ml inj IV ONE (00:30)
[2019-09-30 00:33] VITALS: BP 132/84
--- NOTE | 2019-09-30 00:33 | NUR ---
NURSE NOTES: Patient transfer from [facility]. Report from Karla RODRIGEZ. No s/s of distress noted. A&OX2, confusion. IV site patent and intact. Belongings were checked. Noted sacral redness and bilateral heel redness. Bed in lowest position. Call light within reach. Will continue to monitor.
[2019-09-30] MEDS ORDERED: Acetaminophen 650mg/20.3ml ORAL PRN (00:48)
[2019-09-30] MEDS ORDERED: Miralax 17gm pkt ORAL PRN (00:49)
--- NOTE | 2019-09-30 00:50 | NUR ---
NURSE NOTES: Sacral and bilateral heel redness, Picture was taken but unable to upload. Tried different unit(4E, 3E, 2E) but unable to upload picture.
[2019-09-30] MEDS ORDERED: D5NS 1,000 ML IV SCH (01:00)
[2019-09-30] MEDS ORDERED: Heparin 25,000u/D5W 500ml 500 ML IV SCH ×2 (01:00→07:00)
[2019-09-30 04:00] VITALS: BP 118/80
[2019-09-30 05:54] LABS: PARTIAL THROMBOPLASTIN TIME > 150 SEC (23-33)
--- NOTE | 2019-09-30 06:00 | NUR ---
NURSE NOTES: Received PTT result: more than 150. Contact Pharmacist (adina), Hold for 1hr and decrease to 13unit/kg/hr.
--- NOTE | 2019-09-30 07:30 | NUR ---
HAND-OFF: Report given to Tyler RODRIGEZ.
--- NOTE | 2019-09-30 07:30 | NUR ---
NURSE NOTES: Report received from Karla RODRIGEZ. Patient is alert x 1. Patient is currently calm and cooperative in bed. 22 madelyn IV noted left hand. IV fluids running per orders. Heparin drip also running at 13 units / kg / hr. Verified does with previous nurse Karla.Will monitor for next aPTT at approximately 1300. Will adjust rate per protocol. Bed locked, alarmed, and in lowest position. Will continue to follow plan of care.
--- NOTE | 2019-09-30 07:53 | NUR ---
NURSE NOTES: Patient found to be pulling at IV line. patient ripped tubing of primary line. IV infusions stopped. patient disconnected. Tried to reorient patient. Patient became increasingly agitated and pulling at IV site, swatting staff away when trying to stop her. Soft wrist restraints put in place for patient safety, and due to patient pulling at IV line. IV still in tact and flushes. Heparin and IV fluids continued. Will call Doctor Chang.
[2019-09-30 08:00] VITALS: BP 140/80
[2019-09-30] MEDS ORDERED: Meropenem 1 GM in NS 55 ML IVPB SCH (08:00)
--- NOTE | 2019-09-30 08:00 | NUR ---
NURSE NOTES: Obtained order from Doctor Chang for soft wrist restraints.
--- NOTE | 2019-09-30 08:41 | NUR ---
NURSE NOTES: Patient's sales department clerk is now in room with patient. Restraints removed per judgment of Tyler RODRIGEZ. Caregiver will communicate with staff if patient begins to pull at lines once again. Restraint order still active.
[2019-09-30] MEDS ORDERED: Heparin1,000 units/500ml Premix(Conc:2 units/ml) IV PRN (09:00)
[2019-09-30] MEDS ORDERED: Lidocaine 1% Plain 30 ml INJ PRN (09:00)
[2019-09-30 12:00] VITALS: BP 127/72
--- NOTE | 2019-09-30 13:00 | NUR ---
NURSE NOTES: Patient being discharged home with family. Patients daughter, two sons, and personal customer care representative are here at [facility] to assist with bringing patient home. Educated family on patient's diagnosis. Informed them of doctors instructions. Patient's family verbalized understanding. Patient cleaned and dressed in own clothes. Picture of stage I on sacrum taken and uploaded to chart. IV removed. No excessive bleeding noted. Name band removed. Patient safely transferred to wheel chair. [facility] was awake and alert x 1. Patient in stable condition. Care of patient is now ending at this time.
[2019-09-30] MEDS ORDERED: 1/2 NS 1000ml IV ONE (13:10)
[2019-09-30] MEDS ORDERED: NS 275ml ONE (13:10)
[2019-09-30] MEDS ORDERED: D5NS 1000ml IV ONE (13:10)
[2019-09-30] MEDS ORDERED: Tubing IV Secondary IV ONE (13:10)
--- NOTE | 2019-09-30 13:59 | Infectious Diseases Prog Note ---
Assessment/Plan Problems: (1) Acute pyelonephritis Assessment & Plan: with MDR E coli source could be due to ureter obstruction from cecal mass , continue meropenem to cover for bacteremia too for two weeks , with contact isolation for now (2) Severe sepsis Assessment & Plan: with ESBL producing E coli , source ? cecal mass with possible translocation of the bacteria to the blood . continue meropenem for two weeks . repeated blood culture on 09/25 is NTD which confirm clearance . EOT 10/09/19 (3) Cecum mass Assessment & Plan: rule out malignancy , poor prognosis , with advanced age , had colonoscopy today , pending report . GI and surgery are following (4) Hypercoagulable state Assessment & Plan: off Coumadin due to colonoscopy procedure Assessment/Plan D/W daughter at bedside Subjective ROS Limited/Unobtainable: Yes Allergies: Coded Allergies: CLINDAMYCIN (Verified Allergy, Unknown, 10/15/11) PENICILLINS (Verified Allergy, Unknown, 10/15/11) SULFA (SULFONAMIDE ANTIBIOTICS) (Verified Allergy, Unknown, 10/15/11) Subjective she was alert but agitated and tried to pull iv lines out, placed on restrains , no fever or chills, no diarrhea , no nausea or vomiting Objective Vital Signs Last 24 Hour Vital Signs Date Time Temp Pulse Resp B/P (MAP) Pulse Ox O2 Delivery O2 Flow Rate FiO2 09/30/19 12:00 97.3 90 18 127/72 (90) 97 09/30/19 09:00 Room Air 09/30/19 08:00 97.7 80 17 140/80 (100) 97 09/30/19 04:00 97.7 90 18 118/80 (93) 94 09/30/19 00:50 Room Air 09/30/19 00:33 98.0 102 20 132/84 (100) 94 09/29/19 20:00 97.7 73 20 127/78 (94) 96 09/29/19 20:00 Room Air 09/29/19 19:43 93 09/29/19 16:00 98.6 91 18 131/66 (87) 99 09/29/19 16:00 Room Air 09/29/19 15:26 94 Height (Feet): 5 Height (Inches): 5.00 Weight (Pounds): 148 General Appearance: WD/WN, no acute distress HEENT: normocephalic, atraumatic, anicteric, mucous membranes moist, PERRL Respiratory/Chest: chest wall non-tender, lungs clear, normal breath sounds, no respiratory distress, no accessory muscle use Cardiovascular: normal peripheral pulses, normal rate, regular rhythm, no gallop/murmur, no JVD Abdomen: normal bowel sounds, soft, non tender, no organomegaly, non distended , no mass, no scars Genitourinary: normal external genitalia Extremities: no cyanosis, no clubbing Skin: no rash, no lesions Neurologic/Psychiatric: bread stacker II-XII grossly normal, alert, responsive Lymphatic: no neck adenopathy, no groin adenopathy Musculoskeletal: normal muscle bulk, no effusion Laboratory Tests Test 09/29/19 19:30 09/30/19 04:59 Activated Partial Thromboplast Time 49 SEC (23-33) H > 150 SEC (23-33) *H Prothrombin Time 10.9 SEC (9.30-11.50) Prothromb Time International Ratio 1.0 (0.9-1.1) Keily Flores M.D. Sep 30, 2019 13:59
--- NOTE | 2019-09-30 15:56 | General Progress Note ---
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 - h/o colon polyps - h/o diverticulosis - UTI/Sepsis - hypokalemia Recommendations - await surgical intervention - push po - abx - monitor labs Subjective Allergies: Coded Allergies: CLINDAMYCIN (Verified Allergy, Unknown, 10/15/11) PENICILLINS (Verified Allergy, Unknown, 10/15/11) SULFA (SULFONAMIDE ANTIBIOTICS) (Verified Allergy, Unknown, 10/15/11) Subjective Above noted feels OK confused at times per RN Objective Last 24 Hour Vital Signs Date Time Temp Pulse Resp B/P (MAP) Pulse Ox O2 Delivery O2 Flow Rate FiO2 09/30/19 12:00 97.3 90 18 127/72 (90) 97 09/30/19 09:00 Room Air 09/30/19 08:00 97.7 80 17 140/80 (100) 97 09/30/19 04:00 97.7 90 18 118/80 (93) 94 09/30/19 00:50 Room Air 09/30/19 00:33 98.0 102 20 132/84 (100) 94 09/29/19 20:00 97.7 73 20 127/78 (94) 96 09/29/19 20:00 Room Air 09/29/19 19:43 93 09/29/19 16:00 98.6 91 18 131/66 (87) 99 09/29/19 16:00 Room Air Intake and Output 09/29/19 09/30/19 19:00 07:00 Intake Total 1282.420 ml 808.8162 ml Output Total 0 ml Balance 1282.420 ml 808.8162 ml Intake Oral 240 ml IV Total 1042.420 ml 808.8162 ml Estimated Blood Loss 0 ml # Voids 2 3 # Bowel Movements 2 Laboratory Tests 09/29/19 19:30: Activated Partial Thromboplast Time 49H 09/30/19 04:59: Activated Partial Thromboplast Time > 150*H, Prothrombin Time 10.9, Prothromb Time International Ratio 1.0 Height (Feet): 5 Height (Inches): 5.00 Weight (Pounds): 148 Objective WDWN NCAT supple CTA RRR Abd soft ND NT no edema Colby Galindo MD Sep 30, 2019 15:56
[2019-09-30] MEDS ORDERED: Warfarin Sodium 5mg ORAL SCH (17:00)
[2019-09-30] MEDS ORDERED: Dyna-Hex 2% Top Sol 2oz TOPIC SCH ×2 (20:00)
--- NOTE | 2019-10-01 19:30 | Operative Note - Dictated ---
GASTROENTEROLOGY PROCEDURE REPORT DATE OF PROCEDURE: 09/29/2019. PROCEDURE: Colonoscopy with biopsy. SURGEON: Colby Galindo M.D. ANESTHESIA: Please see the separate anesthesiologist notes for details. PRE-ENDOSCOPIC DIAGNOSIS: Abnormal CT scan with cecal mass seen. POST-ENDOSCOPIC DIAGNOSES: 1. Large right colonic mass, which was 70 to 80% circumferential and 70 to 80% obstructive. The colonoscope was not passed beyond the mass due to the safety concerns. 2. Colonic mass was extensively ulcerated and friable. Multiple biopsies were obtained. 3. The distal edge of mass was tattooed with Anita ink in 2 quadrants. 4. Moderate to severe left-sided diverticulosis was seen. 5. Diminutive left colonic polyp was seen and biopsied off. 6. Frozen section evaluation of the colonic mass was obtained directly from pathologist as adenocarcinoma. DESCRIPTION OF PROCEDURE: The procedure, its risks, indications, alternatives, and possible complications were explained to the patient's family and informed consent was obtained. The patient was then sedated in the left lateral decubitus position and a rectal exam was done. The colonoscope was then introduced into the rectum and advanced to the right colon. At this juncture, a large colonic mass was seen, which was 70 to 80% circumferential and 70 to 80% obstructive. Because of colonic tortuosity and the extensive ulcerations seen on this mass, the lesion was not traversed with the colonoscope. Instead it was biopsied multiple times and Anita ink was used to tattoo the very distal margin of the mass in 2 quadrants across from the edge of the mass. Some of the biopsy specimens were sent off for frozen section for immediate answer and the remains were sent for regular pathology examination. The colonoscope was then gradually withdrawn and the remainder of the colon was examined carefully. There was moderate to severe left-sided diverticulosis. There was also a diminutive colon polyp in the descending colon, which was biopsied off. Retroflexed view of the rectum was unremarkable. The colonoscope was removed and soon after the procedure was completed, the pathologist returned stating that the frozen section evaluation was consistent with adenocarcinoma. The patient was sent to recovery in good condition. COMPLICATIONS: None. RECOMMENDATIONS: 1. Hold off on Coumadin. 2. Okay to resume IV heparin while awaiting surgical intervention. 3. Monitor CBC closely. 4. Follow up pathology results. 5. Surgical consultation for right hemicolectomy. Colby Galindo M.D. DR: ABRAM JOB#: [id number] CC:
--- NOTE | 2019-10-02 14:36 | Discharge Summary ---
Discharge Summary Discharge Summary _ DATE OF ADMISSION: 09/22/2019 DATE OF DISCHARGE: 09/30/2019 DISCHARGED BY: Dr. Kj Chang CONSULTANTS: Dr. Colby Valenzuela BRIEF HOSPITAL COURSE: Patient is an 89-year-old white female, with history of hypercoagulable state, on Coumadin, was brought to the emergency room after 2 to 3 days somewhat being lethargic and altered. 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 Upon evaluation at ED, she was found to have pyuria with white count of 14.6. Urinalysis showed evidence of 60-80 WBCs per high-power field, many bacteria. Head CT read by radiologist showed atrophic changes and chronic ischemic white matter changes. She was admitted for altered mental status due to underlying sepsis. She was continued on Levaquin. She was given IV hydration. She was continued on home medications. Continued on warfarin, pharmacy to dose. ID was consulted. Urine culture and blood culture growing gram-negative rods. Levaquin was switched to meropenem. Patient refused NGT placement for tube feeding. CT of the abdomen and pelvis showed evidence of cecal mass. GI and surgeon consulted. Patient would need to undergo colonoscopy. Coumadin was discontinued. Patient was placed on heparin drip. On 09/29/2019, patient underwent colonoscopy. Findings showed a large right colonic mass, which was 70 to 80% circumferential and 70 to 80% obstructed. Colonic mass was extensively ulcerated and friable. Frozen section evaluation showed adenocarcinoma. Patient would need right hemicolectomy. Patient would like to have the surgery at [facility]. Given nonobstructive tumor, patient was cleared for discharge , to follow-up with surgeon at [facility]. FINAL DIAGNOSES: Newly diagnosed adenocarcinoma of the colon Acute pyelonephritis with MDR E. coli Severe sepsis with ESBL producing E. coli Hypercoagulable state Hypokalemia DISPOSITION: Patient was discharged home. DISCHARGE MEDICATIONS: Refer to Discharge Medication List. I have been assigned to complete a discharge summary on this account, I was not involved with the patient's management.--JACKIE Garcia Jacqueline Robles NP Oct 02, 2019 14:36
--- NOTE | 2019-10-06 13:44 | CDS Physician Query ---
Clarification is required for compliance, coding accuracy, and to reflect severity of illness for this patient Dear Keily Sykes M.D. 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 she has been lethargic and altered, with poor response and lethargy, so she was sent to the hospital for further evaluation and management . in ED She was found to have leukocytosis and UTI which is concerning for sepsis , CXR didn't show any new infiltrates or effusion , so she was given levaquin and vancomycin in ED and was admitted to the [facility] for further evaluation and management . "Altered Mental Status" documented in Progress Notes Please indicate the nature and chronicity of the condition below: [] Metabolic Encephalopathy [] Toxic Encephalopathy [] Toxic - Metabolic Encephalopathy [] Encephalopathy, Other [] Dementia with Delirium [] Hypoxic encephalopathy [] Posterior reversible encephalopathy syndrome [] Other: [] Not Applicable Present on Admission: [] Yes [] No [] Clinically Undetermined Physician signature Date Please also document in your Progress Notes and/or Discharge Summary and indicate if the condition was present on admission. MTDD
== END 2019-09-30 13:11 | disposition home or self-care (01) | DRG 871 ==
LOC: EDBD 15:37 → EMR 16:16 → 2W 17:05 → EDBEDREQ 19:04 → 2W 23:00 → 4E 09-30 00:26
DX: A41.9 Sepsis, unspecified organism (principal); G92 Toxic encephalopathy; E46 Unspecified protein-calorie malnutrition; Z16.24 Resistance to multiple antibiotics; C18.9 Malignant neoplasm of colon, unspecified; N10 Acute pyelonephritis; R65.20 Severe sepsis without septic shock; B96.20 Unspecified Escherichia coli [E. coli] as the cause of diseases classified elsewhere; E86.0 Dehydration; Z96.659 Presence of unspecified artificial knee joint; R79.1 Abnormal coagulation profile; Z88.0 Allergy status to penicillin; Z88.2 Allergy status to sulfonamides; E87.6 Hypokalemia; Z79.01 Long term (current) use of anticoagulants; Z86.718 Personal history of other venous thrombosis and embolism; M19.90 Unspecified osteoarthritis, unspecified site; K44.9 Diaphragmatic hernia without obstruction or gangrene; E03.9 Hypothyroidism, unspecified; K57.90 Diverticulosis of intestine, part unspecified, without perforation or abscess without bleeding; K63.5 Polyp of colon; Z95.828 Presence of other vascular implants and grafts
CPT/HCPCS: 36415; 45381; 70450; 71045; 74177; 76770; 80048; 80053; 81003; 82378; 82550; 82553; 82962; 83605; 83735; 84100; 84439; 84443; 84484; 85025; 85610; 85730; 86710; 87040; 87086; 87181; 93005; 94003; 94150; 96361; 96365; 96366; 99285; J7030; J8499